=== PATIENT | female | born 1940 | race Caucasian/White ===

== ENCOUNTER 2016-12-25 16:25 | Emergency (ER) | payer MEDICARE ==
--- NOTE | 2016-12-25 19:30 | UC ---
Skin Complaint HPI - HPI Summary HPI Summary: A few weeks ago noticed a spot on chest between breasts. Didn't pay much attention to it, but today looked at it with magnifying mirror, glasses, and in good light, and then looked for pictures of melanoma online and is concerned about skin cancer. Denies recent illness, weight loss, cough, or loss of appetite. - History of Current Complaint Chief Complaint: UCSkin Time Seen by Provider: 12/25/16 18:52 Stated Complaint: SKIN LESION Hx Obtained From: Patient ?: No Onset/Duration: Gradual Onset, Lasting Weeks Timing: Constant Onset Severity: Mild Current Severity: Mild Character: Raised Aggravating: Nothing Alleviating: Nothing Associated Signs & Symptoms: Positive: Negative - Allergy/Home Medications Allergies/Adverse Reactions: Allergies Allergy/AdvReac Type Severity Reaction Status Date / Time No Known Allergies Allergy Verified 08/05/12 16:00 Home Medications: Home Medications Losartan Potassium 25 mg PO DAILY 12/25/16 [History Confirmed 12/25/16] Metoprolol Succinate XL TAB* [Toprol XL TAB*] 25 mg PO DAILY 12/25/16 [History Confirmed 12/25/16] Review of Systems Constitutional: Negative Skin: Other - spot on chest Eyes: Negative ENT: Negative Respiratory: Negative Cardiovascular: Negative Gastrointestinal: Negative Genitourinary: Negative Motor: Negative Neurovascular: Negative Musculoskeletal: Negative Neurological: Negative Psychological: Negative All Other Systems Reviewed And Are Negative: Yes PMH/Surg Hx/FS Hx/Imm Hx Endocrine History Of: Denies: Diabetes, Thyroid Disease Cardiovascular History Of: Reports: Cardiac Disorders - heart murmur, Hypertension Denies: Pacemaker/ICD Respiratory History Of: Denies: COPD, Asthma GI/ History Of: Denies: Gastroesophageal Reflux, Ulcer, Renal Disease Neurological History Of: Reports: CVA Denies: Dementia, Seizures Other History Of: Anticoagulant Therapy - Surgical History Surgical History: Yes Surgery Procedure, Year, and Place: meningioma removal 1984, tonsils - Family History Known Family History: Positive: Hypertension - Social History Occupation: Retired Lives: Alone Alcohol Use: None Substance Use Type: None Smoking Status (MU): Never Smoked Tobacco Physical Exam Triage Information Reviewed: Yes Appearance: Well-Appearing, Obese Vital Signs: Initial Vital Signs Temp 100.2 F 12/25/16 18:42 Pulse 78 12/25/16 18:42 Resp 18 12/25/16 18:42 BP 164/74 12/25/16 18:42 Pulse Ox 95 12/25/16 18:42 Vital Signs Reviewed: Yes Eye Exam: Normal Eyes: Positive: Conjunctiva Clear ENT Exam: Normal ENT: Positive: Normal ENT inspection, Hearing grossly normal, Pharynx normal, TMs normal Neck exam: Normal Neck: Positive: Supple, Nontender, No Lymphadenopathy Respiratory Exam: Normal Respiratory: Positive: Chest non-tender, Lungs clear, Normal breath sounds, No respiratory distress, No accessory muscle use Cardiovascular Exam: Normal Cardiovascular: Positive: RRR, No Murmur Musculoskeletal: Positive: ROM Intact, Edema @ - bilat legs, chronic, Other: - ambulates with walker Neurological Exam: Normal Neurological: Positive: Alert Psychological Exam: Normal Skin: Positive: rashes - flaky dry dermatitis on BL ankles and lower shins with secondary excoriations and scabs from picking, significant lesion(s) - 1.25cm x 1cm oval black/brown lesion on chest covered with reinoso/brown keratinous spikes Course/Dx - Diagnoses Provider Diagnoses: Sebhorric keratosis chest Discharge - Discharge Plan Condition: Stable Disposition: HOME Referrals: Cristina Randhawa MD [Primary Care Provider] - Additional Instructions: As we discussed, the spot on your chest is a sebhorric keratosis. This is a benign growth that usually happens in older adults and doesn't need any particular treatment unless it is painful or disfiguring. You can follow up with Dr. Randhawa if you have further concerns.
== END 2016-12-25 19:28 | disposition home or self-care (01) ==
LOC: UCEAST 16:25
DX: L82.1 Other seborrheic keratosis (principal); R01.1 Cardiac murmur, unspecified; I10 Essential (primary) hypertension; E66.9 Obesity, unspecified; Z86.73 Personal history of transient ischemic attack (TIA), and cerebral infarction without residual deficits; Z79.01 Long term (current) use of anticoagulants
CPT/HCPCS: 99201; G0463

== ENCOUNTER 2017-01-16 16:07 | Emergency (ER) | payer MEDICARE ==
[2017-01-16 16:37] VITALS: BP 157/78
[2017-01-16] MEDS ORDERED: Aspirin TAB* 325 MG PO ONE (16:43)
--- NOTE | 2017-01-16 17:40 | RAD ---
HISTORY: Pain and swelling, right knee COMPARISONS: None VIEWS: 4, Frontal, lateral, axial, and oblique views of the right knee FINDINGS: BONE DENSITY: There is diffuse osteopenia. BONES: There is no displaced fracture. JOINTS: There is no arthropathy. There is chondrocalcinosis ALIGNMENT: There is no dislocation. SOFT TISSUES: Unremarkable. OTHER FINDINGS: None. IMPRESSION: CHONDROCALCINOSIS. NO ACUTE OSSEOUS INJURY. IF SYMPTOMS PERSIST, RECOMMEND REPEAT IMAGING.
--- NOTE | 2017-01-28 16:50 | UC ---
Knee Pain HPI - HPI Summary HPI Summary: Right knee pain for a few days no known injury, got worse today - History of Current Complaint Hx Obtained From: Patient ?: No Onset/Duration: Gradual Onset, Lasting Days, Still Present, Worse Since - today Severity Initially: Moderate Severity Currently: Moderate Location Of Injury: right knee Pain Intensity: 7 Pain Scale Used: 0-10 Numeric Character: Aching, Throbbing, Stiffness Aggravating Factor(s): Movement, Weight Bearing Alleviating Factor(s): Rest, Position Associated Signs And Symptoms: Positive: Negative Able to Bear Weight: Yes <Jodi Olson - Last Filed: 01/28/17 16:44> <Apurva Owen - Last Filed: 01/29/17 07:45> - History of Current Complaint Chief Complaint: UCLowerExtremity Stated Complaint: KNEE PAIN Time Seen by Provider: 01/16/17 16:31 - Allergies/Home Medications Allergies/Adverse Reactions: Allergies Allergy/AdvReac Type Severity Reaction Status Date / Time No Known Allergies Allergy Verified 08/05/12 16:00 Home Medications: Home Medications Atenolol TAB* [Tenormin TAB* 50 MG] 50 mg PO DAILY 01/16/17 [History Confirmed 01/16/17] PMH/Surg Hx/FS Hx/Imm Hx Previously Healthy: Yes Cardiovascular History: Hypertension Other History Of: Anticoagulant Therapy - Surgical History Surgical History: Yes Surgery Procedure, Year, and Place: meningioma removal 1983, tonsils - Family History Known Family History: Positive: Hypertension - Social History Occupation: Retired Lives: With Family Alcohol Use: None Substance Use Type: None Smoking Status (MU): Never Smoked Tobacco <Jodi Olson - Last Filed: 01/28/17 16:44> Review of Systems Constitutional: Negative Skin: Negative Eyes: Negative ENT: Negative Respiratory: Negative Cardiovascular: Negative Gastrointestinal: Negative Genitourinary: Negative Motor: Negative Neurovascular: Negative Musculoskeletal: Arthralgia - right knee Neurological: Negative Psychological: Negative All Other Systems Reviewed And Are Negative: Yes <Jodi Olson - Last Filed: 01/28/17 16:44> Physical Exam Triage Information Reviewed: Yes Appearance: Well-Appearing, No Pain Distress, Well-Nourished Vital Signs: Initial Vital Signs Temp 97.3 F 01/16/17 16:31 Pulse 52 01/16/17 16:31 Resp 18 01/16/17 16:31 BP 157/78 01/16/17 16:31 Pulse Ox 97 01/16/17 16:31 Vital Signs Reviewed: Yes Eye Exam: Normal Eyes: Positive: Conjunctiva Clear ENT Exam: Normal ENT: Positive: Normal ENT inspection, Hearing grossly normal, TMs normal. Negative: Nasal congestion, Nasal drainage, Tonsillar swelling, Tonsillar exudate, Trismus, Muffled/hoarse voice Dental Exam: Normal Neck exam: Normal Neck: Positive: Supple, Nontender Respiratory Exam: Normal Respiratory: Positive: Chest non-tender, No respiratory distress, No accessory muscle use Cardiovascular Exam: Normal Cardiovascular: Positive: RRR, No Murmur, Pulses Normal, Brisk Capillary Refill Musculoskeletal Exam: Normal Musculoskeletal: Positive: Strength Intact, ROM Intact, No Edema Neurological Exam: Normal Neurological: Positive: Alert, Muscle Tone Normal Psychological Exam: Normal Skin Exam: Normal <Jodi Olson - Last Filed: 01/28/17 16:44> Vital Signs: Initial Vital Signs Temp 97.3 F 01/16/17 16:31 Pulse 52 01/16/17 16:31 Resp 18 01/16/17 16:31 BP 157/78 01/16/17 16:31 Pulse Ox 97 01/16/17 16:31 <Apurva Owen - Last Filed: 01/29/17 07:45> Diagnostics - Radiology No standard instances Xray Interpretation: Positive (See Comments) - chondrocalcinosis, osteopenia Radiology Interpretation Completed By: Radiologist <Jodi Olson - Last Filed: 01/28/17 16:44> Knee Pain Course/Dx - Course Course Of Treatment: anny wrap, gentle exercise, follow BP and Knee with pcp - Differential Dx/Diagnosis Differential Diagnosis/HQI/PQRI: Contusion, Fracture (Closed), Phlebitis, Sprain , Strain Provider Diagnoses: Right Knee arthritis, Hypertension in poor control <Jodi Olson - Last Filed: 01/28/17 16:44> Discharge <Jodi Olson - Last Filed: 01/28/17 16:44> <Apurva Owen - Last Filed: 01/29/17 07:45> - Discharge Plan Condition: Stable Disposition: HOME Patient Education Materials: Knee Pain (ED), Arthritis (ED) Referrals: Ralph Crabtree MD [Medical Doctor] - 3 Days Cristina Randhawa MD [Primary Care Provider] - Attestation Statement User Type: Provider - I was available for consult. This patient was seen by the advanced practice provider. The patient was not presented to, seen by, or examined by me.-Natalie <Apurva Owen - Last Filed: 01/29/17 07:45>
== END 2017-01-16 18:40 | disposition home or self-care (01) ==
LOC: UCEAST 16:07
DX: M17.11 Unilateral primary osteoarthritis, right knee (principal); I10 Essential (primary) hypertension; Z79.01 Long term (current) use of anticoagulants
CPT/HCPCS: 99212; G0463

== ENCOUNTER 2017-06-07 10:18 | Emergency (ER) | payer MEDICARE, MEDICAID ==
[2017-06-07 11:07] VITALS: BP 114/56
--- NOTE | 2017-06-07 11:40 | UC ---
Hand/Wrist HPI - HPI Summary HPI Summary: Patient presents with a paste medical history of carpel tunnel syndrome, and peripheral neuropathy. She states she has had worsening hand pain x one week. She states the pain is constant and worse at night. She states she is having trouble doing her basic activities of daily living. She denies any numbness or tingling at the time of the visit, but does at times have numbness of the the thumb, first and second fingers. She describes the pain as a severe burning sensation. - History Of Current Complaint Chief Complaint: UCUpperExtremity Stated Complaint: HAND PAIN Time Seen by Provider: 06/07/17 11:15 Hx Obtained From: Patient ?: No Onset/Duration: Other - months/years. Severity Initially: Mild Severity Currently: Severe Character Of Pain: Burning Aggravating Factor(s): Movement, Flexion, Extension Alleviating Factor(s): Nothing Associated Signs And Symptoms: Positive: Numbness/Tingling Related History: Similar Episode/Dx As - carpel tunnel syndrome - Risk Factors Compartment Syndrome Risk Factors: Pain, Paresthesias - Allergies/Home Medications Allergies/Adverse Reactions: Allergies Allergy/AdvReac Type Severity Reaction Status Date / Time No Known Allergies Allergy Verified 06/07/17 11:07 Home Medications: Home Medications Aspirin [Hegins Aspirin] 2 tab PO Q4H PRN 06/07/17 [History Confirmed 06/07/17] PMH/Surg Hx/FS Hx/Imm Hx Previously Healthy: Yes Other Cardiovascular History: lymphadema Other History Of: Anticoagulant Therapy - Surgical History Surgical History: Yes Surgery Procedure, Year, and Place: meningioma removal 1983, tonsils - Family History Known Family History: Positive: Hypertension - Social History Occupation: Retired Alcohol Use: None Substance Use Type: None Smoking Status (MU): Never Smoked Tobacco Review of Systems Constitutional: Negative Skin: Negative Eyes: Negative ENT: Negative Respiratory: Negative Cardiovascular: Negative Gastrointestinal: Negative Genitourinary: Negative Motor: Negative Neurovascular: Negative Musculoskeletal: Negative, Arthralgia - bilateral wrist and hands., Myalgia Neurological: Negative Psychological: Negative All Other Systems Reviewed And Are Negative: Yes Physical Exam Triage Information Reviewed: Yes Appearance: Well-Appearing Vital Signs: Initial Vital Signs Temp 97.6 F 06/07/17 10:59 Pulse 55 06/07/17 10:59 Resp 18 06/07/17 10:59 BP 114/56 06/07/17 10:59 Pulse Ox 96 06/07/17 10:59 Vital Signs Reviewed: Yes Eye Exam: Normal ENT Exam: Normal Dental Exam: Normal Neck exam: Normal Neck: Positive: 1 Respiratory Exam: Normal Cardiovascular Exam: Normal Abdominal Exam: Normal Musculoskeletal Exam: Normal Neurological Exam: Normal Psychological Exam: Normal Skin Exam: Normal Hand/Wrist Course/Dx - Course Course Of Treatment: Patient presents with a past medical history of reported carpel tunnel syndrome and reports increased pain, and at times numbness of the thum through middle fingers, at the time of the examination the patient has improved pain and no numbness. Her examination is benign. I did porvide cock up splints and recomend tylenol 325 mg by mouth three times daily. And I have referred her on to Dr. Liz for follow up. - Differential Dx/Diagnosis Differential Diagnosis/HQI/PQRI: Other - carpel tunnel syndrome Provider Diagnoses: carpel tunnel syndrome Discharge - Discharge Plan Condition: Stable Disposition: HOME Patient Education Materials: Wrist Injury (ED) Referrals: Cristina Randhawa MD [Primary Care Provider] - Bethanie Liz MD [Medical Doctor] - Additional Instructions: Patient diagnosis: carpel tunnel syndrome peripheral neuropathy Take Tylenol 325 mg by mouth three times daily for 3 days.
== END 2017-06-07 11:45 | disposition home or self-care (01) ==
LOC: UCEAST 10:18
DX: G56.00 Carpal tunnel syndrome, unspecified upper limb (principal)
CPT/HCPCS: 99213; G0463

== ENCOUNTER 2017-06-11 13:19 | Emergency (ER) | payer MEDICARE, MEDICAID ==
[2017-06-11 14:56] VITALS: BP 158/68
--- NOTE | 2017-06-20 17:10 | UC ---
Walter Gaffney Nikita, scribed for Leann Gunter DO on 06/11/17 at 1445 . Upper Extremity HPI - HPI Summary HPI Summary: This patient is a 77 year old F presenting to [facility] with a chief complaint of L hand pain since less than 3-4 weeks ago (couple of days after R arm pain started ). The CC is described as feeling electrified, tight, and aching. The patient rates the pain 10/10 in severity. Symptoms aggravated by bending fingers and any kind of movement. Symptoms alleviated by Aspirin, Tylenol, and bending over and leaning her L arm. Patient reports some tingling in fingers of R hand, pain from Carpel tunnel, swelling in L hand (started this afternoon at 1200), mild pain/ feeling in L arm, dizziness (light-headed, from turning of head suddenly ), slight ear ache (last night, pain coming from teeth). Patient denies N/V, abdominal pain, jaw pain, sore throat, CP, SOB, confusion, CARUSO, rashes. Pt reports pain in R shoulder and bicep pain started about 3-4 weeks ago (resolved 1 week after onset). - History of Current Complaint Chief Complaint: UCUpperExtremity Stated Complaint: HAND PAIN Hx Obtained From: Patient Onset/Duration: Sudden Onset, Lasting Weeks, Still Present Severity Initially: Severe Severity Currently: Severe Pain Intensity: 10 Pain Scale Used: 0-10 Numeric Location Of Pain: Is Discrete @ - L hand and L bicep Character: Aching - and pressure Aggravating Factor(s): Movement, Other - bending of fingers Alleviating Factor(s): OTC Meds - Aspirin and Tylenol Associated Signs And Symptoms: Positive: Other - Patient reports some tingling in fingers of R hand, pain from Carpel tunnel, swelling in L hand (started this afternoon at 1200), mild pain/ feeling in L arm, dizziness (light-headed, from turning of head suddenly), slight ear ache (last night, pain coming from teeth). Patient denies N/V, abdominal pain, jaw pain, sore throat, CP, SOB, confusion, CARUSO, rashes. Pt reports pain in R shoulder and bicep pain started about 3-4 weeks ago (resolved 1 week after onset). - Allergies/Home Medications Allergies/Adverse Reactions: Allergies Allergy/AdvReac Type Severity Reaction Status Date / Time No Known Allergies Allergy Verified 06/11/17 13:25 Home Medications: Home Medications Aspirin [Aspirin 81 MG TAB] 81 mg PO 06/11/17 [History] PMH/Surg Hx/FS Hx/Imm Hx - Additional Past Medical History Additional PMH: Carpel Tunnel Syndrome since age 30-40s. Endocrine History: Other Other Endocrine History: Lymphedema, L ventricular hypertrophy, leakage in mitral valve Cardiovascular History: Hypertension Other Cardiovascular History: Heart murmur Other History Of: Anticoagulant Therapy - Surgical History Surgical History: Yes Surgery Procedure, Year, and Place: meningioma removal 1983, tonsils - Family History Known Family History: Positive: Hypertension, Diabetes Family History: heart murmur - Social History Alcohol Use: None Substance Use Type: None Smoking Status (MU): Never Smoked Tobacco - Immunization History Most Recent Influenza Vaccination: declines every year Most Recent Pneumonia Vaccination: unsure Review of Systems Skin: Negative ENT: Ear Ache - slight ear ache (last night, pain coming from teeth), Other - denies jaw pain, sore throat Respiratory: Negative Cardiovascular: Negative Gastrointestinal: Other - denies N/V, abdominal pain Musculoskeletal: Other: - some tingling in fingers of R hand, pain from Carpel tunnel, swelling in L hand (started this afternoon at 1200), mild pain/ feeling in L arm; pain in R shoulder and bicep pain started about 3-4 weeks ago ( resolved 1 week after onset) Neurological: Other - dizziness (light-headed, from turning of head suddenly); denies confusion, CARUSO All Other Systems Reviewed And Are Negative: Yes Physical Exam Triage Information Reviewed: Yes Appearance: Well-Appearing, Well-Nourished, Pain Distress - mild Vital Signs: Initial Vital Signs Temp 98.4 F 06/11/17 13:29 Pulse 61 06/11/17 13:29 Resp 16 06/11/17 13:29 BP 173/61 06/11/17 13:29 Pulse Ox 97 06/11/17 13:29 Vital Signs Reviewed: Yes Eyes: Positive: Conjunctiva Clear. Negative: Discharge ENT: Positive: Hearing grossly normal, Other: - normal voice. Negative: Muffled /hoarse voice Neck exam: Normal Neck: Positive: Supple Respiratory: Positive: Lungs clear, Normal breath sounds, No respiratory distress, No accessory muscle use Cardiovascular: Positive: RRR, Other: - holosystolic murmur Musculoskeletal Exam: Other - Very poor kyphotic posture, mild to moderate swelling of L hand, shocking pain with gripping on R, motor appears to be intact , pt cant make a tight fist due to pain of L hand, no pain with ROM of L shoulder and elbow, no pain with squeezing of L brachium or forearm Neurological: Positive: Alert, Muscle Tone Normal Psychological Exam: Normal Psychological: Positive: Age Appropriate Behavior Skin Exam: Other - Warm, Dry, Normal color Skin: Positive: significant lesion(s) - scaly skin lesion on L arm Diagnostics - EKG Cardiac Rate: Bradycardia - 54 bpm; taken at 1534; L ventricular hypertrophy and no ST changes Re-Evaluation - Re-Evaluation First Eval Re-Evaluation Time: 16:03 Comment: Discussed with pt about discharge plan. Upper Extremity Course/Dx - Course Course Of Treatment: This patient is a 77 year old F presenting to [facility] with a chief complaint of L hand pain since less than 3-4 weeks ago (couple of days after R arm pain started). The CC is described as feeling electrified, tight, and aching. The patient rates the pain 10/10 in severity. Symptoms aggravated by bending fingers and any kind of movement. Symptoms alleviated by Aspirin, Tylenol, and bending over and leaning her L arm. Patient reports some tingling in fingers of R hand, pain from Carpel tunnel, swelling in L hand (started this afternoon at 1200), mild pain/ feeling in L arm, dizziness (light-headed, from turning of head suddenly), slight ear ache (last night, pain coming from teeth). Patient denies N/V, abdominal pain, jaw pain, sore throat, CP, SOB, confusion, CARUSO, rashes. Pt reports pain in R shoulder and bicep pain started about 3-4 weeks ago (resolved 1 week after onset). EKG reveals sinus bradycardia at 54 bpm, L ventricular hypertrophy, and no ST changes. Consulted Dr. Durand at 1600 about pt's EKG and plan of action. Medications reviewed this visit. High blood pressure noted. Pt will be discharged. Pt is agreeable with this plan. - Differential Dx/Diagnosis Provider Diagnoses: Elevated blood pressure without diagnosis of hypertension. Peripheral neuropathy. - Physician Notification/Consults Discussed Patient Care With: Satish Durand Time Discussed With Above Provider: 16:00 Instructed by Provider To: Other - Consulted Dr. Durand about pt's EKG and plan of action. Discharge - Discharge Plan Condition: Stable Disposition: HOME Patient Education Materials: Peripheral Neuropathy (ED) Referrals: Cristina Randhawa MD [Primary Care Provider] - 3 Days Additional Instructions: YOU WOULD LIKELY BENEFIT FROM OSTEOPATHIC MANIPULATION. WE RECOMMEND THAT YOU FIND AN OSTEOPATHIC PHYSICIAN IN YOUR AREA WHO DOES LYMPHATIC, MYOFACIAL AND VISCERAL WORK. Your blood pressure was elevated at this visit. That does not mean you have hypertension, it is probably due to your current condition. Please follow up with your primary care provider. Pt is advised to show PCP the lesion on L brachium. You have inquired about possible medications that would be appropriate to control pain. We recommend that you consider turmeric, CPD oil, and a combination of arnica and St Pollard wort. However, it is important that you discuss this with your primary and your credit and collections representative, and get their approval first. Because left arm pain is a symptom of heart problems, we did an EKG and showed it to your credit and collections representative. We had a discussion with your credit and collections representative, and he said that unless you developed much increase pain in left arm or if you develop more typical symptoms of a heart attack, such as CP, SOB, dizziness, nausea, vomiting, abdominal pain, and left jaw pain, you should go to the ER immediately. The documentation as recorded by the Walter haider Nikita accurately reflects the service I personally performed and the decisions made by me, Leann Gunter DO.
== END 2017-06-11 16:46 | disposition home or self-care (01) ==
LOC: UCEAST 13:19
DX: G62.9 Polyneuropathy, unspecified (principal); I10 Essential (primary) hypertension; I51.7 Cardiomegaly; Z79.01 Long term (current) use of anticoagulants; I89.0 Lymphedema, not elsewhere classified; R01.1 Cardiac murmur, unspecified; R00.1 Bradycardia, unspecified
CPT/HCPCS: 93005; 99211; G0463

== ENCOUNTER 2017-06-25 09:09 | Day surgery (SDC) | payer MEDICARE, MEDICAID ==
--- NOTE | 2017-06-15 13:30 | HP ---
PREOPERATIVE HISTORY AND PHYSICAL: DATE OF ADMISSION/SURGERY: 06/25/17 [facility] DATE OF OFFICE VISIT/ENCOUNTER: 06/10/17 ATTENDING SURGEON: Bethanie Liz MD * (DICTATED BY ALIN AVILA) PROCEDURE: Right wrist carpal tunnel release. PRACTICE MANAGEMENT CONSULTANT: Dr. Satish Durnad. CHIEF COMPLAINT: Numbness and tingling, bilateral hands, right worse than left. HISTORY OF PRESENT ILLNESS: This is a 77-year-old female who complains of numbness and tingling in her bilateral hands, right is slightly worse than the left. She has had symptoms for many, many years. She occasionally takes aspirin , which is helpful, but does not alleviate the symptoms and nearly everything at this point is bothersome. She is very limited in her abilities because of this problem; she is right handed. She has numbness in all fingers except the pinkies. There was no injury that she recalls. After physical examination by Dr. Liz, she was diagnosed with bilateral carpal tunnel syndrome. The patient has consented to proceed with a right wrist carpal tunnel release at this time, after which she will likely have a left wrist carpal tunnel release. The patient does have some cardiac issues including left ventricular hypertrophy and mitral valve regurgitation. We will get clearance prior to surgery from her woods laborer, Dr. Satish Durand. PAST MEDICAL HISTORY: 1. Left ventricular hypertrophy. 2. Mitral valve regurgitation. 3. Hypertension. 4. Lymphedema. PAST SURGICAL HISTORY: 1. Tonsillectomy. 2. Excision of a meningioma from the right frontal lobe in 1983, left the patient with left-sided weakness. 3. D and C. CURRENT MEDICATIONS: 1. Atenolol 50 mg daily. 2. Losartan potassium 50 mg daily. 3. Multivitamin daily. 4. Sibley oil. 5. Other vitamins. ALLERGIES: No known drug allergies. FAMILY MEDICAL HISTORY: Noncontributory. SOCIAL HISTORY: The patient lives at home alone. She denies tobacco use and recreational drug use. She does drink alcohol on rare occasion. REVIEW OF SYSTEMS: General: Negative for fevers, chills, or night sweats. No known anesthesia problems in the past. HEENT: Negative for headache, lightheadedness, or syncopal episodes. Integumentary: Negative for abrasions, lesions, or open wounds. Cardiothoracic: Positive for hypertension and lymphedema. Negative for chest pain. Pulmonary: Negative for shortness of breath with exertion, chronic cough, COPD. GI: Negative for nausea, vomiting, diarrhea, constipation, or GERD. : Negative for nocturia, urinary frequency , urgency, history of UTIs, or kidney problems. Musculoskeletal: Positive for current complaint. Negative for chronic or intermittent back pain or history of fractures. Neurologic: Positive for paresthesias, bilateral hands. Negative for history of seizure, stroke, or epilepsy. Endocrine: Negative for diabetes or thyroid issues. Hematologic: Negative for easy bruising, anemia, excessive bleeding, or history of DVT. Infectious Disease: Negative for history of MRSA, hepatitis C, or HIV. PHYSICAL EXAMINATION GENERAL: A well-developed, well-nourished, 77-year-old female in no acute distress. VITAL SIGNS: Height 5 feet tall, weight 160 pounds, pulse rate 70, blood pressure 138/68. HEENT: Normocephalic, atraumatic. Pupils are equal, round, and reactive to light and accommodation. Extraocular movements are intact. Throat is clear. NECK: Supple. No palpable lymph nodes. PULMONARY: Lungs are clear to auscultation bilaterally. No wheezes, rales, or rhonchi. CARDIOVASCULAR: Regular rate and rhythm. S1, S2. Murmur detected with auscultation. Mitral valve regurg. ABDOMEN: Positive bowel sounds, soft, nontender. NEUROLOGICAL: Alert and oriented x3. Cranial nerves II through XII are intact. MUSCULOSKELETAL: On exam of bilateral hands, she has significant thenar wasting. She has marked weakness with thumb abduction bilaterally. She has good range of motion of her fingers into a fist and good extension of the fingers. Wrist motion is slightly decreased. Sensation is decreased in the median nerve distribution bilaterally. She has a positive Tinel's at bilateral wrists. IMPRESSION: Bilateral carpal tunnel syndrome. PLAN: The patient is scheduled to undergo a right wrist carpal tunnel release with Dr. Liz on 06/25/17. She will return to the office 10 to 14 days postop for followup and suture removal. A prescription for tramadol was e-scribed to the patient's pharmacy for postoperative pain management. She will receive clearance for surgery by her woods laborer, Dr. Satish Durand. ALIN AVILA [id number]/[facility] #: [id number] [place]
[~2017-06-25 09:09] MED LIST: Buffered Lidocaine 0.9% SYRIN* 5 ML/SYR SYRINGE INTRADERM ONE
[2017-06-25] MEDS ORDERED: Lidocaine 1% INJ* 10 MG/ML 30 ML SDV ONE (09:31)
[2017-06-25] MEDS ORDERED: fentaNYL* 50 MCG/ML 2 ML VIAL (100 MCG VIAL) ONE (10:15)
[2017-06-25] MEDS ORDERED: Propofol* 10 MG/ML 20 ML BTL IV PUSH ONE (10:28)
[2017-06-25] MEDS ORDERED: Lidocaine 2% PF * 5 ML VIAL ONE (10:28)
[2017-06-25 11:36] VITALS: BP 175/65
--- NOTE | 2017-06-26 00:17 | OP ---
DATE OF OPERATION: 06/25/17 [facility] DATE OF : 38 SURGEON: Bethanie Liz MD PELT DROPPER: ALIN Leiva and ALIN Copeland ANESTHESIOLOGIST: Demarcus Uribe DO ANESTHESIA: MAC PRE-OP DIAGNOSIS: Right carpal tunnel syndrome. POST-OP DIAGNOSIS: Right carpal tunnel syndrome. OPERATIVE PROCEDURE: Right carpal tunnel release. ESTIMATED BLOOD LOSS: Zero. TOURNIQUET TIME: 5 minutes. INDICATION FOR PROCEDURE: Tania is a 77-year-old female with numbness and tingling in the median nerve distribution of her right hand. She presents for a right carpal tunnel release. DESCRIPTION OF PROCEDURE: The patient was given sedation anesthetic and a local infiltration of 10 cc of 1% plain lidocaine in the palm of her right hand. The skin of her right hand and forearm was prepped and draped in the usual sterile fashion. The hand and forearm were exsanguinated and the tourniquet elevated to 250 mmHg. A longitudinal incision was made in the palm in line with the ring finger. We dissected through the subcutaneous tissue down to the transverse carpal ligament. The ligament was divided sharply with the knife and then more proximally with the scissors. The nerve was dissected free from the surrounding tissue and there was an area of severe compression at the mid portion of the ligament. The wound was irrigated and the skin edges were reapproximated with 4-0 nylon suture. The wound was dressed with Xeroform, 4x4, Webril, and an Darrel wrap. The patient tolerated the procedure well and was brought to the recovery room in good condition. [id number]/[facility] #: [id number] MTDD
== END 2017-06-25 11:55 | disposition home or self-care (01) ==
LOC: OREAST 09:09
PROVIDERS: ATTEND Orthopaedic Surgery
DX: G56.03 Carpal tunnel syndrome, bilateral upper limbs (principal); I11.9 Hypertensive heart disease without heart failure; I34.0 Nonrheumatic mitral (valve) insufficiency
CPT/HCPCS: J2001; J2704; J3010

== ENCOUNTER 2017-06-27 15:56 | Inpatient (IN) | payer MEDICARE, MEDICAID ==
[2017-06-27] MEDS ORDERED: NS 0.9% 1000 ML* 1,000 ML IV SCH ×2 (19:15→20:30)
[2017-06-27 19:35] LABS: Hematocrit 33 % (35-47); Mean Corpuscular HGB Conc 34 g/dl (31-36); Mean Corpuscular Hemoglobin 28 pg (27-31); Mean Corpuscular Volume 82 fL (80-97); Mean Platelet Volume 6 um3 (7.4-10.4); Red Blood Count 3.99 10^6/ul (4.0-5.4); Red Cell Distribution Width 14 % (10.5-15); White Blood Count 10.8 10^3/ul (3.5-10.8)
--- NOTE | 2017-06-27 19:52 | RAD ---
HISTORY: Fever COMPARISONS: August 25, 2005 VIEWS: 1: frontal portable view of the chest at 7:20 PM. The patient is slightly obliqued to the left. FINDINGS: LINES AND TUBES: None. CARDIOMEDIASTINAL SILHOUETTE: The cardiomediastinal silhouette is normal for portable technique. PLEURA: There is blunting of the right costophrenic angle. LUNG PARENCHYMA: There is hyperinflation. ABDOMEN: The upper abdomen is clear. There is no subphrenic gas. BONES AND SOFT TISSUES: No bone or soft tissue abnormalities are noted. IMPRESSION: 1. COPD. 2. SMALL RIGHT PLEURAL EFFUSION VERSUS CHRONIC PLEURAL THICKENING
[2017-06-27 19:56] LABS: Albumin 3.7 g/dL (3.2-5.2); BUN/Creatinine Ratio 28.1 (8-20); C Reactive Protein 127.62 mg/L (< 5.00); Calcium 9.6 mg/dL (8.6-10.3); EGFR African American 115.4 (>60); EGFR Non-African American 89.7 (>60); Globulin 3.6 g/dL (2-4); Magnesium 1.8 mg/dL (1.9-2.7); Potassium 4.1 mmol/L (3.5-5.0); Total Bilirubin 0.7 mg/dL (0.2-1.0); Total Protein 7.3 g/dL (6.4-8.9)
[2017-06-27 19:59] LABS: Troponin I 0.04 ng/mL (<0.04)
[2017-06-27 20:16] LABS: Urine Bacteria 1+ (Absent); Urine Bilirubin Negative (Negative); Urine Glucose Negative (Negative); Urine Nitrite Positive (Negative)
[2017-06-27 20:20] LABS: TSH (Thyroid Stimulating Horm) 0.91 mcIU/mL (0.34-5.60)
[2017-06-27] MEDS ORDERED: Magnesium Sulfate 2 GM IV* 2 GM/50 ML BAG IVPB ONE (20:49)
--- NOTE | 2017-06-27 21:06 | ED ---
Li Gaffney SooYoung, scribed for Chapo Srivastava MD on 06/27/17 at 1831 . Complex/Multi-Sys Presentation - HPI Summary HPI Summary: A 77 y/o F presents to ED s/p carpal tunnel surgery on R hand two days ago. Pt states she was staying with family (daughter and son-in-law) since the surgery, but they are unable to see continue caring for her today. She states she is unable to take care of herself at home. She ambulates with a walker, but was told by her provider not to use the walker immediately after the surgery. Pert PMHx: peripheral neuropathy; carpal tunnel syndrome. Pt is registered with [facility] who she contacted but she did not receive a return phone call, nor has she been in contact with a home health aide. - History Of Current Complaint Chief Complaint: EDExtremityUpper Time Seen by Provider: 06/27/17 18:19 Hx Obtained From: Patient Onset/Duration: Still Present Timing: Constant Associated Signs And Symptoms: Positive: Fever, Other - s/p carpal tunnel surgery of R hand - Allergies/Home Medications Allergies/Adverse Reactions: Allergies Allergy/AdvReac Type Severity Reaction Status Date / Time Lanolin Allergy Rash Verified 06/25/17 09:51 Latex Allergy Rash Verified 06/25/17 09:51 PMH/Surg Hx/FS Hx/Imm Hx Previously Healthy: No Endocrine/Hematology History: Reports: Hx Anticoagulant Therapy Denies: Hx Diabetes, Hx Thyroid Disease Cardiovascular History: Reports: Hx Hypertension, Hx Valvular Heart Disease - mitral valve regurg, Other Cardiovascular Problems/Disorders - left ventricular hypertrophy Denies: Hx Pacemaker/ICD Respiratory History: Denies: Hx Asthma, Hx Chronic Obstructive Pulmonary Disease (COPD), Other Respiratory Problems/Disorders GI History: Denies: Hx Ulcer, Other GI Disorders History: Reports: Hx Kidney Stones - several years ago Denies: Hx Renal Disease, Other Problems/Disorders Musculoskeletal History: Reports: Hx Arthritis - right knee, Hx Tendonitis - arm and shoulder Denies: Other Musculoskeletal History Sensory History: Reports: Hx Contacts or Glasses - glasses Denies: Hx Hearing Aid Opthamlomology History: Reports: Hx Contacts or Glasses - glasses Neurological History: Reports: Hx Nerve Disease - peripheral neuropathy Denies: Hx Dementia, Hx Seizures, Other Neuro Impairments/Disorders Psychiatric History: Reports: Hx Anxiety - hypochondriac, worrier Denies: Hx Substance Abuse - Surgical History Surgery Procedure, Year, and Place: meningioma removal 1983, tonsils Hx Anesthesia Reactions: No Infectious Disease History: No Infectious Disease History: Denies: Hx Clostridium Difficile, Hx Hepatitis, Hx Human Immunodeficiency Virus (HIV), Hx of Known/Suspected MRSA, Hx Shingles, Hx Tuberculosis, Hx Known/ Suspected VRE, Hx Known/Suspected VRSA, History Other Infectious Disease, Traveled Outside the [place] in Last 30 Days - Family History Known Family History: Positive: Hypertension, Diabetes Family History: heart murmur - Social History Occupation: Retired Lives: Alone Alcohol Use: None Hx Substance Use: No Substance Use Type: Reports: None Hx Tobacco Use: No Smoking Status (MU): Never Smoked Tobacco Review of Systems Positive: Fever Positive: Other - pos: R hand s/p carpal tunnel surgery Negative: Slurred Speech All Other Systems Reviewed And Are Negative: Yes Physical Exam Triage Information Reviewed: Yes Vital Signs On Initial Exam: Initial Vitals Temp Pulse Resp BP Pulse Ox 100.1 F 72 15 174/61 95 06/27/17 16:00 06/27/17 16:00 06/27/17 16:00 06/27/17 16:00 06/27/17 16:00 Vital Signs Reviewed: Yes Appearance: Positive: Well-Appearing, No Pain Distress Skin: Positive: Warm, Skin Color Reflects Adequate Perfusion, Dry Head/Face: Positive: Normal Head/Face Inspection Eyes: Positive: EOMI, FRANSICO ENT: Positive: Normal ENT inspection Neck: Positive: Supple, Nontender Respiratory/Lung Sounds: Positive: Clear to Auscultation, Breath Sounds Present Cardiovascular: Positive: RRR, Murmur Abdomen Description: Positive: Nontender, Soft Bowel Sounds: Positive: Present Musculoskeletal: Positive: Normal, Strength/ROM Intact, Other - R hand is bandaged; good capillary refill through fingers Neurological: Positive: Normal, Sensory/Motor Intact, Alert, Oriented to Person Place, Time Psychiatric: Positive: Affect/Mood Appropriate Diagnostics - Vital Signs Vital Signs Temp Pulse Resp BP Pulse Ox 06/27/17 17:46 100.1 F 67 15 190/76 96 06/27/17 16:00 100.1 F 72 15 174/61 95 - Laboratory Lab Results: Lab Results 06/27/17 06/27/1706/27/17 Range/Units 19:15 19:15 19:15 WBC (3.5-10.8) 10^3/ul RBC (4.0-5.4) 10^6/ul Hgb (12.0-16.0) g/dl Hct (35-47) % MCV (80-97) fL MCH (27-31) pg MCHC (31-36) g/dl RDW (10.5-15) % Plt Count (150-450) 10^3/ul MPV (7.4-10.4) um3 Neut % (Auto) (38-83) % Lymph % (Auto) (25-47) % Morrow % (Auto) (1-9) % Eos % (Auto) (0-6) % Baso % (Auto) (0-2) % Absolute Neuts (auto) (1.5-7.7) 10^3/ul Absolute Lymphs (auto) (1.0-4.8) 10^3/ul Absolute Monos (auto) (0-0.8) 10^3/ul Absolute Eos (auto) (0-0.6) 10^3/ul Absolute Basos (auto) (0-0.2) 10^3/ul Absolute Nucleated RBC 10^3/ul Nucleated RBC % INR (Anticoag Therapy) 1.14 H (0.89-1.11) APTT 21.3 L (26.0-36.3) seconds Sodium 135 (133-145) mmol/L Potassium 4.1 (3.5-5.0) mmol/L Chloride 101 (101-111) mmol/L Carbon Dioxide 26 (22-32) mmol/L Anion Gap 8 (2-11) mmol/L BUN 18 (6-24) mg/dL Creatinine 0.64 (0.51-0.95) mg/dL Est GFR ( Amer) 115.4 (>60) Est GFR (Non-Af Amer) 89.7 (>60) BUN/Creatinine Ratio 28.1 H (8-20) Glucose 110 H (70-100) mg/dL Lactic Acid (0.5-2.0) mmol/L Calcium 9.6 (8.6-10.3) mg/dL Magnesium 1.8 L (1.9-2.7) mg/dL Total Bilirubin 0.70 (0.2-1.0) mg/dL AST 11 L (13-39) U/L ALT 10 (7-52) U/L Alkaline Phosphatase 84 (34-104) U/L Troponin I 0.04 H* (<0.04) ng/mL C-Reactive Protein 127.62 H (< 5.00) mg/L B-Natriuretic Peptide 352 H ( - 100) pg/mL Total Protein 7.3 (6.4-8.9) g/dL Albumin 3.7 (3.2-5.2) g/dL Globulin 3.6 (2-4) g/dL Albumin/Globulin Ratio 1.0 (1-3) TSH 0.91 (0.34-5.60) mcIU/mL Urine Color Urine Appearance Urine pH (5-9) Ur Specific [place] (1.010-1.030) Urine Protein (Negative) Urine Ketones (Negative) Urine Blood (Negative) Urine Nitrate (Negative) Urine Bilirubin (Negative) Urine Urobilinogen (Negative) Ur Leukocyte Esterase (Negative) Urine WBC (Auto) (Absent) Urine RBC (Auto) (Absent) Ur Squamous Epith Cells (Absent) Urine Bacteria (Absent) Urine Glucose (Negative) Influenza A (Rapid) (Negative) Influenza B (Rapid) (Negative) 06/27/17 06/27/17 06/27/17 Range/Units 19:15 19:15 19:36 WBC 10.8 (3.5-10.8) 10^3/ul RBC 3.99 L (4.0-5.4) 10^6/ul Hgb 11.0 L (12.0-16.0) g/dl Hct 33 L (35-47) % MCV 82 (80-97) fL MCH 28 (27-31) pg MCHC 34 (31-36) g/dl RDW 14 (10.5-15) % Plt Count 427 (150-450) 10^3/ul MPV 6 L (7.4-10.4) um3 Neut % (Auto) 78.6 (38-83) % Lymph % (Auto) 12.0 L (25-47) % Morrow % (Auto) 7.4 (1-9) % Eos % (Auto) 1.5 (0-6) % Baso % (Auto) 0.5 (0-2) % Absolute Neuts (auto) 8.5 H (1.5-7.7) 10^3/ul Absolute Lymphs (auto) 1.3 (1.0-4.8) 10^3/ul Absolute Monos (auto) 0.8 (0-0.8) 10^3/ul Absolute Eos (auto) 0.2 (0-0.6) 10^3/ul Absolute Basos (auto) 0 (0-0.2) 10^3/ul Absolute Nucleated RBC 0.02 10^3/ul Nucleated RBC % 0.1 INR (Anticoag Therapy) (0.89-1.11) APTT (26.0-36.3) seconds Sodium (133-145) mmol/L Potassium (3.5-5.0) mmol/L Chloride (101-111) mmol/L Carbon Dioxide (22-32) mmol/L Anion Gap (2-11) mmol/L BUN (6-24) mg/dL Creatinine (0.51-0.95) mg/dL Est GFR ( Amer) (>60) Est GFR (Non-Af Amer) (>60) BUN/Creatinine Ratio (8-20) Glucose (70-100) mg/dL Lactic Acid 0.7 (0.5-2.0) mmol/L Calcium (8.6-10.3) mg/dL Magnesium (1.9-2.7) mg/dL Total Bilirubin (0.2-1.0) mg/dL AST (13-39) U/L ALT (7-52) U/L Alkaline Phosphatase (34-104) U/L Troponin I (<0.04) ng/mL C-Reactive Protein (< 5.00) mg/L B-Natriuretic Peptide ( - 100) pg/mL Total Protein (6.4-8.9) g/dL Albumin (3.2-5.2) g/dL Globulin (2-4) g/dL Albumin/Globulin Ratio (1-3) TSH (0.34-5.60) mcIU/mL Urine Color Urine Appearance Urine pH (5-9) Ur Specific [place] (1.010-1.030) Urine Protein (Negative) Urine Ketones (Negative) Urine Blood (Negative) Urine Nitrate (Negative) Urine Bilirubin (Negative) Urine Urobilinogen (Negative) Ur Leukocyte Esterase (Negative) Urine WBC (Auto) (Absent) Urine RBC (Auto) (Absent) Ur Squamous Epith Cells (Absent) Urine Bacteria (Absent) Urine Glucose (Negative) Influenza A (Rapid) Negative (Negative) Influenza B (Rapid) Negative (Negative) 06/27/17 Range/Units 20:00 WBC (3.5-10.8) 10^3/ul RBC (4.0-5.4) 10^6/ul Hgb (12.0-16.0) g/dl Hct (35-47) % MCV (80-97) fL MCH (27-31) pg MCHC (31-36) g/dl RDW (10.5-15) % Plt Count (150-450) 10^3/ul MPV (7.4-10.4) um3 Neut % (Auto) (38-83) % Lymph % (Auto) (25-47) % [place] % (Auto) (1-9) % Eos % (Auto) (0-6) % Baso % (Auto) (0-2) % Absolute Neuts (auto) (1.5-7.7) 10^3/ul Absolute Lymphs (auto) (1.0-4.8) 10^3/ul Absolute Monos (auto) (0-0.8) 10^3/ul Absolute Eos (auto) (0-0.6) 10^3/ul Absolute Basos (auto) (0-0.2) 10^3/ul Absolute Nucleated RBC 10^3/ul Nucleated RBC % INR (Anticoag Therapy) (0.89-1.11) APTT (26.0-36.3) seconds Sodium (133-145) mmol/L Potassium (3.5-5.0) mmol/L Chloride (101-111) mmol/L Carbon Dioxide (22-32) mmol/L Anion Gap (2-11) mmol/L BUN (6-24) mg/dL Creatinine (0.51-0.95) mg/dL Est GFR ( Amer) (>60) Est GFR (Non-Af Amer) (>60) BUN/Creatinine Ratio (8-20) Glucose (70-100) mg/dL Lactic Acid (0.5-2.0) mmol/L Calcium (8.6-10.3) mg/dL Magnesium (1.9-2.7) mg/dL Total Bilirubin (0.2-1.0) mg/dL AST (13-39) U/L ALT (7-52) U/L Alkaline Phosphatase (34-104) U/L Troponin I (<0.04) ng/mL C-Reactive Protein (< 5.00) mg/L B-Natriuretic Peptide ( - 100) pg/mL Total Protein (6.4-8.9) g/dL Albumin (3.2-5.2) g/dL Globulin (2-4) g/dL Albumin/Globulin Ratio (1-3) TSH (0.34-5.60) mcIU/mL Urine Color Yellow Urine Appearance Cloudy Urine pH 7.0 (5-9) Ur Specific [place] 1.019 (1.010-1.030) Urine Protein 1+(30 mg/dl) H (Negative) Urine Ketones Trace H (Negative) Urine Blood Negative (Negative) Urine Nitrate Positive H (Negative) Urine Bilirubin Negative (Negative) Urine Urobilinogen Positive H (Negative) Ur Leukocyte Esterase 3+ H (Negative) Urine WBC (Auto) 3+(>20/hpf) H (Absent) Urine RBC (Auto) 2+(6-10/hpf) H (Absent) Ur Squamous Epith Cells Present H (Absent) Urine Bacteria 1+ H (Absent) Urine Glucose Negative (Negative) Influenza A (Rapid) (Negative) Influenza B (Rapid) (Negative) Result Diagrams: 06/27/17 19:15 06/27/17 19:15 Lab Statement: Any lab studies that have been ordered have been reviewed, and results considered in the medical decision making process. - EKG 1 Cardiac Rate: NL - 71 bpm EKG Rhythm: Sinus Rhythm ST Segment: Non-Specific Ectopy: None EKG Interpretation: LVH Complex Multi-Symp Course/Dx Course Of Treatment: A 77 y/o F presents to ED s/p carpal tunnel surgery on R hand two days ago. Pt states she was staying with family (daughter and son-in- law) since the surgery, but they are unable to see continue caring for her today. She states she is unable to take care of herself at home. She ambulates with a walker, but was told by her provider not to use the walker immediately after the surgery. Pert PMHx: peripheral neuropathy; carpal tunnel syndrome. Pt is registered with [facility] who she contacted but she did not receive a return phone call, nor has she been in contact with a home health aide. Consulted with hospitalist who will admit pt. - Diagnoses Provider Diagnoses: UTI (urinary tract infection), Elevated troponin - Physician Notifications Discussed Care Of Patient With: Roge Owne - hospitalist Time Discussed With Above Provider: 18:25 Instructed by Provider To: Admit As Inpatient Discharge - Discharge Plan Condition: Stable Disposition: [facility]MITTED TO [facility] The documentation as recorded by the Li haider SooYoung accurately reflects the service I personally performed and the decisions made by me, Chapo Srivastava MD.
[2017-06-27] MEDS ORDERED: hydrALAZINE IV* 20 MG/ML VIAL IV PRN (22:47)
[2017-06-27] MEDS: Heparin VIAL(*) 5000 UNITS/ML VIAL (FIVE THOUSAND) SUBCUT SCH (22:57)
[2017-06-27] MEDS: cefTRIAXone VIAL(*) 1,000 MG in NS 0.9% 50 ML* 50 ML IVPB SCH (22:57)
[2017-06-28] MEDS ORDERED: ALPRAZolam TAB* 0.25 MG PO ONE (01:03)
--- NOTE | 2017-06-28 01:51 | HP ---
CC: Cristina Randhawa MD * HISTORY AND PHYSICAL: DATE OF ADMISSION: 06/27/17 PRIMARY CARE PROVIDER: Cristina Randhawa MD ATTENDING PHYSICIAN: Javy Escobar MD * (dictated by Kath Mc NP) CHIEF COMPLAINT: Unable to ambulate after right carpal tunnel release. HISTORY OF PRESENT ILLNESS: Ms. Turner is a 77-year-old with past medical history significant for left ventricular hypertrophy, mitral valve regurgitation , hypertension, chronic bilateral lower extremity lymphedema and left-sided weakness status post a right frontal meningioma excision, who had been in her usual state of health and underwent an elective right carpal tunnel release with Dr. Bethanie Liz on 06/25/17. The patient states that she has been doing well postoperatively and her pain has been controlled with aspirin and Tylenol. The patient denied any fever, chills, shortness of breath, chest pain , nausea, vomiting. The patient reports occasional cough due to postnasal drip. She denies any urinary symptoms such as dysuria, urgency, or frequency changes. She reports minimal discomfort to her right wrist. It is to be also noted that the patient reports recently developing a right shoulder discomfort, it then progressed to her left shoulder and into her left biceps over the last few weeks. She feels this has been due to using a walker that was not the appropriate level. The patient states that she had increased her aspirin from 81 mg daily to 325 mg daily to assist with her pain management. The patient's family had been assisting to take care of her and due to the patient not progressing as fast as they expected her to, they were unable to continue to care for her at home as they needed to return to work on Wednesday, so they brought her to the emergency room for further evaluation of her symptoms. While in the emergency room, initially the patient was going to be admitted as a prison patient. Then she was found to be febrile with a temperature of 101.0. After the patient was febrile, she then had labs drawn. She had no leukocytosis. She was noted to have a magnesium of 1.8, troponin of 0.04, a CRP of 127.62. She also had urinalysis that was significant for positive nitrites, 3+ leukocyte esterase, 3+ WBC's, 2+ RBC's, present squamous epithelial cells, and 1+ bacteria. She also had influenza A and B that were negative. The hospitalists were asked to evaluate the patient for admission. PAST MEDICAL HISTORY: 1. Left ventricular hypertrophy. 2. Mitral valve regurgitation. 3. Hypertension. 4. Chronic bilateral lower extremity lymphedema. 5. Chronic left-sided weakness. PAST SURGICAL HISTORY: 1. Status post right carpal tunnel release on 06/25/17. 2. Status post tonsillectomy. 3. Status post excision of meningioma of the right frontal lobe. 4. Status post D and C. HOME MEDICATIONS: Include: 1. Vitamin E 400 units oral daily. 2. Policosanol 20 mg oral daily. 3. Minto oil 1000 mg oral daily. 4. Multivitamin for Seniors 1 capsule oral daily. 5. Losartan 50 mg oral daily. 6. Vitamin B12 plus B6, 1 tablet oral daily. 7. Bee propolis 1 tablet oral daily. 8. Atenolol 50 mg oral daily. 9. Aspirin 81 mg oral daily, the patient states she has been taking 325 mg oral daily since her surgery. 10. Vitamin C 500 mg oral daily. 11. Acetaminophen 1000 mg oral every 8 hours as needed for pain. ALLERGIES: LANOLIN and LATEX. FAMILY HISTORY: The patient's mother had a history of cerebrovascular accident. The patient's father had a history of vascular disease. The patient' s maternal grandmother had a history of diabetes mellitus. The patient's paternal grandmother had a history of stomach cancer. SOCIAL HISTORY: The patient denies tobacco, alcohol, or recreational drug use. She lives alone. The patient would like her surrogate decision makers to be her [id number], Padmaja Turner, in addition to her friend Tamera Gonzalez, Tamera's phone number is [phone], in the event that she is unable to make decisions for herself. REVIEW OF SYSTEMS: I performed a 14-point review of systems. All the pertinent positives and negatives are mentioned in the history of present illness. Remaining review of systems are negative. PHYSICAL EXAMINATION GENERAL APPEARANCE: The patient is alert, pleasant, appears to be in no acute distress. VITAL SIGNS: Temperature 101.0, heart rate 71, respiratory rate 19, O2 sat 96% on room air, blood pressure 177/65. HEENT: Normocephalic and atraumatic. Pupils are equal and reactive to light. Extraocular movements are intact. RESPIRATORY: There is no accessory muscle use. Her lungs are clear to auscultation bilateral. CARDIOVASCULAR: Regular rate and rhythm. S1 and S2 present. There are no murmurs, rubs, or gallops heard. ABDOMEN: Soft, nontender, and nondistended. There are bowel sounds present x4. EXTREMITIES: There is 2+ bilateral lower extremity edema. DP and PT pulses are 2+ and symmetric. MUSCULOSKELETAL: There is no clubbing or cyanosis noted. The patient exhibits good strength in all extremities, but she is noted to have some left-sided weakness. NEUROLOGIC: The patient is alert and oriented x4. Cranial nerves II through XII are grossly intact. PSYCHOLOGICAL: The patient is calm and cooperative. SKIN: The patient has chronic lymphedema changes to her bilateral lower extremities with a slight amount of erythema to the left acevedo and dry flaky skin. Dressing to right wrist is clean, dry and intact. DIAGNOSTIC STUDIES/LAB DATA: Sodium 135, potassium 4.1, chloride 101, CO2 26, BUN 18, creatinine 0.64, glucose 118. Magnesium 1.8, troponin 0.04. CRP 127.62 , BNP 352. INR 1.14. White blood cell count 10.8, hemoglobin 11.0, hematocrit 33, and platelet count 427,000. Chest x-ray from today: Radiologist's impression: Small right pleural effusion versus chronic pleural thickening. EKG from today shows sinus rhythm with a rate of 71. There is LVH and some nonspecific T abnormalities in the lateral leads. This EKG is similar to previous EKG from 06/11/17 with the exception that the downsloping in the ST segment is more pronounced in leads V5 and 6 on this EKG when compared to the previous. IMPRESSION: Ms. Turner is a 77-year-old female with past medical history significant for left ventricular hypertrophy, mitral valve regurgitation, hypertension, chronic lymphedema and left-sided weakness who presented to the emergency room with difficulty ambulating post surgery on her right arm due to her need to use a walker. The patient was found to be febrile and to have a urinary tract infection. She will be admitted as an observation for urinary tract infection and elevated troponin. ASSESSMENT/PLAN: 1. Urinary tract infection. I suspect this is the cause of the patient's elevated CRP and fever. She denies any urinary symptoms. We will start her on IV ceftriaxone and give her IV fluids. She is currently not meeting sepsis criteria by either the qSOFA or SIRS criteria. 2. Elevated troponin. The patient's troponin is 0.04. She denies any chest pain. There are no acute signs of ischemia on her EKG, although she does have some nonspecific ST changes in her EKG. We will trend her troponins, monitor her on telemetry, recheck an EKG in the morning. Again, the patient is denying any chest pain at this time. 3. Inability to ambulate after wrist surgery with her walker. We will get OT and PT. The patient is interested in a possible short-term rehab stay, as she states alone and her family is unable to continue to assist with care. 4. Hypertension. The patient will be continued on her home losartan and atenolol. 5. Status post right carpal tunnel release. At this point, I do not believe that the patient's surgical incision is the source of her infection. For now, I recommend leaving the dressing intact and if it is felt that there possibly could be an infection in her right wrist, recommend contacting Orthopedic Surgery and see if they will assess the incision. 6. Fluids, electrolytes and nutrition. Regular diet. 7. Code status. Full code. 8. DVT prophylaxis. The patient is at high risk and will be placed on subcu heparin. 9. Disposition. Observation. TIME SPENT: Time for this admission was approximately 60 minutes, greater than half of that was spent with the patient discussing medications, past medical history, the events leading up to her arrival today, performing a physical examination. The case has been reviewed with the attending, Dr. Escobar, who agrees with the plan of care. Reviewed by SUSAN MARQUEZ 06/30/17 1428 [id number]/[facility] #: [id number] [place]
[2017-06-28 05:29] LABS: Hematocrit 30 % (35-47); Hemoglobin 10.5 g/dl (12.0-16.0); Mean Corpuscular HGB Conc 35 g/dl (31-36); Mean Corpuscular Hemoglobin 29 pg (27-31); Mean Corpuscular Volume 83 fL (80-97); Mean Platelet Volume 6 um3 (7.4-10.4); Red Blood Count 3.62 10^6/ul (4.0-5.4); Red Cell Distribution Width 14 % (10.5-15); White Blood Count 11.7 10^3/ul (3.5-10.8)
[2017-06-28 05:51] LABS: BUN/Creatinine Ratio 22.2 (8-20); Calcium 8.8 mg/dL (8.6-10.3); EGFR African American 140.4 (>60); EGFR Non-African American 109.2 (>60); Potassium 3.8 mmol/L (3.5-5.0)
[2017-06-28] MEDS: Heparin VIAL(*) 5000 UNITS/ML VIAL (FIVE THOUSAND) SUBCUT SCH ×3 (05:52→22:01)
[2017-06-28] MEDS: Atenolol TAB* 50 MG PO SCH (09:18)
[2017-06-28] MEDS: Losartan TAB* 25 MG PO SCH (09:18)
[2017-06-28] MEDS: Aspirin EC Low Dose* 81 MG TAB.EC PO SCH (09:18)
--- NOTE | 2017-06-28 12:47 | PN ---
Subjective Date of Service: 06/28/17 Interval History: pt has chronic left sided weakness ever since her meningioma resection "years ago". Usually ambulates with a walker, but after her R wrist surgery, she had been unable to manage at home. Objective Active Medications: Acetaminophen (Tylenol Tab*) 650 mg PO Q4H PRN PRN Reason: FEVER/PAIN Aspirin (Aspirin Ec Low Dose*) 81 mg PO DAILY [facility] Last Admin: 06/28/17 09:18 Dose: 81 mg Atenolol (Tenormin Tab*) 50 mg PO DAILY [facility] Last Admin: 06/28/17 09:18 Dose: 50 mg Heparin Sodium (Porcine) (Heparin Vial(*)) 5,000 units SUBCUT Q8HR [facility] Last Admin: 06/28/17 05:52 Dose: 5,000 units Hydralazine HCl (Apresoline Iv*) 10 mg IV Q4H PRN PRN Reason: Systolic >170 Last Admin: 06/27/17 23:06 Dose: 10 mg Ceftriaxone Sodium 1,000 mg/ (Sodium Chloride) 50 mls @ 200 mls/hr IVPB Q24H [facility] Last Admin: 06/27/17 22:57 Dose: Not Given Losartan Potassium (Cozaar Tab*) 50 mg PO DAILY [facility] Last Admin: 06/28/17 09:18 Dose: 50 mg Vital Signs 06/28/17 12:17 Temperature 99.3 F Pulse Rate 66 Respiratory 18 Rate Blood Pressure 134/54 (mmHg) O2 Sat by Pulse 94 Oximetry Oxygen Devices in Use Now: None Appearance: 77 yo F in NAD, aAOx3 Eyes: No Scleral Icterus, PERRLA Ears/Nose/Mouth/Throat: NL Teeth, Lips, Gums, Mucous Membranes Moist Neck: NL Appearance and Movements; NL JVP, No Thyroid Enlargement, Masses Respiratory: Symmetrical Chest Expansion and Respiratory Effort, Clear to Auscultation Cardiovascular: NL Sounds; No Murmurs; No JVD, - - 2/6 ZOILA at apex Abdominal: NL Sounds; No Tenderness; No Distention, No Hepatosplenomegaly Lymphatic: No Cervical Adenopathy Extremities: No Clubbing, Cyanosis, - - b/l leg lymphoedema L>R Skin: No Nodules or Sclerosis, - - R wirst in post op dressings-not removed Neurological: Alert and Oriented x 3, NL Muscle Strength and Tone - L sided weakness at 4+/5 in UE and LE Result Diagrams: 06/28/17 05:20 06/28/17 05:19 Additional Lab and Data: Lab Results 06/27/17 06/27/17 06/27/17 Range/Units 19:15 19:15 19:15 WBC (3.5-10.8) 10^3/ul RBC (4.0-5.4) 10^6/ul Hgb (12.0-16.0) g/dl Hct (35-47) % MCV (80-97) fL MCH (27-31) pg MCHC (31-36) g/dl RDW (10.5-15) % Plt Count (150-450) 10^3/ul MPV (7.4-10.4) um3 Neut % (Auto) (38-83) % Lymph % (Auto) (25-47) % [place] % (Auto) (1-9) % Eos % (Auto) (0-6) % Baso % (Auto) (0-2) % Absolute Neuts (auto) (1.5-7.7) 10^3/ul Absolute Lymphs (auto) (1.0-4.8) 10^3/ul Absolute Monos (auto) (0-0.8) 10^3/ul Absolute Eos (auto) (0-0.6) 10^3/ul Absolute Basos (auto) (0-0.2) 10^3/ul Absolute Nucleated RBC 10^3/ul Nucleated RBC % INR (Anticoag Therapy) 1.14 H (0.89-1.11) APTT 21.3 L (26.0-36.3) seconds Sodium 135 (133-145) mmol/L Potassium 4.1 (3.5-5.0) mmol/L Chloride 101 (101-111) mmol/L Carbon Dioxide 26 (22-32) mmol/L Anion Gap 8 (2-11) mmol/L BUN 18 (6-24) mg/dL Creatinine 0.64 (0.51-0.95) mg/dL Est GFR ( Amer) 115.4 (>60) Est GFR (Non-Af Amer) 89.7 (>60) BUN/Creatinine Ratio 28.1 H (8-20) Glucose 110 H (70-100) mg/dL Lactic Acid (0.5-2.0) mmol/L Calcium 9.6 (8.6-10.3) mg/dL Magnesium 1.8 L (1.9-2.7) mg/dL Total Bilirubin 0.70 (0.2-1.0) mg/dL AST 11 L (13-39) U/L ALT 10 (7-52) U/L Alkaline Phosphatase 84 (34-104) U/L Troponin I 0.04 H* (<0.04) ng/mL C-Reactive Protein 127.62 H (< 5.00) mg/L B-Natriuretic Peptide 352 H ( - 100) pg/mL Total Protein 7.3 (6.4-8.9) g/dL Albumin 3.7 (3.2-5.2) g/dL Globulin 3.6 (2-4) g/dL Albumin/Globulin Ratio 1.0 (1-3) TSH 0.91 (0.34-5.60) mcIU/mL Urine Color Urine Appearance Urine pH (5-9) Ur Specific Curtis (1.010-1.030) Urine Protein (Negative) Urine Ketones (Negative) Urine Blood (Negative) Urine Nitrate (Negative) Urine Bilirubin (Negative) Urine Urobilinogen (Negative) Ur Leukocyte Esterase (Negative) Urine WBC (Auto) (Absent) Urine RBC (Auto) (Absent) Ur Squamous Epith Cells (Absent) Urine Bacteria (Absent) Urine Glucose (Negative) Influenza A (Rapid) (Negative) Influenza B (Rapid) (Negative) 06/27/17 06/27/17 06/27/17 Range/Units 19:15 19:15 19:36 WBC 10.8 (3.5-10.8) 10^3/ul RBC 3.99 L (4.0-5.4) 10^6/ul Hgb 11.0 L (12.0-16.0) g/dl Hct 33 L (35-47) % MCV 82 (80-97) fL MCH 28 (27-31) pg MCHC 34 (31-36) g/dl RDW 14 (10.5-15) % Plt Count 427 (150-450) 10^3/ul MPV 6 L (7.4-10.4) um3 Neut % (Auto) 78.6 (38-83) % Lymph % (Auto) 12.0 L (25-47) % [place] % (Auto) 7.4 (1-9) % Eos % (Auto) 1.5 (0-6) % Baso % (Auto) 0.5 (0-2) % Absolute Neuts (auto) 8.5 H (1.5-7.7) 10^3/ul Absolute Lymphs (auto) 1.3 (1.0-4.8) 10^3/ul Absolute Monos (auto) 0.8 (0-0.8) 10^3/ul Absolute Eos (auto) 0.2 (0-0.6) 10^3/ul Absolute Basos (auto) 0 (0-0.2) 10^3/ul Absolute Nucleated RBC 0.02 10^3/ul Nucleated RBC % 0.1 INR (Anticoag Therapy) (0.89-1.11) APTT (26.0-36.3) seconds Sodium (133-145) mmol/L Potassium (3.5-5.0) mmol/L Chloride (101-111) mmol/L Carbon Dioxide (22-32) mmol/L Anion Gap (2-11) mmol/L BUN (6-24) mg/dL Creatinine (0.51-0.95) mg/dL Est GFR ( Amer) (>60) Est GFR (Non-Af Amer) (>60) BUN/Creatinine Ratio (8-20) Glucose (70-100) mg/dL Lactic Acid 0.7 (0.5-2.0) mmol/L Calcium (8.6-10.3) mg/dL Magnesium (1.9-2.7) mg/dL Total Bilirubin (0.2-1.0) mg/dL AST (13-39) U/L ALT (7-52) U/L Alkaline Phosphatase (34-104) U/L Troponin I (<0.04) ng/mL C-Reactive Protein (< 5.00) mg/L B-Natriuretic Peptide ( - 100) pg/mL Total Protein (6.4-8.9) g/dL Albumin (3.2-5.2) g/dL Globulin (2-4) g/dL Albumin/Globulin Ratio (1-3) TSH (0.34-5.60) mcIU/mL Urine Color Urine Appearance Urine pH (5-9) Ur Specific Curtis (1.010-1.030) Urine Protein (Negative) Urine Ketones (Negative) Urine Blood (Negative) Urine Nitrate (Negative) Urine Bilirubin (Negative) Urine Urobilinogen (Negative) Ur Leukocyte Esterase (Negative) Urine WBC (Auto) (Absent) Urine RBC (Auto) (Absent) Ur Squamous Epith Cells (Absent) Urine Bacteria (Absent) Urine Glucose (Negative) Influenza A (Rapid) Negative (Negative) Influenza B (Rapid) Negative (Negative) 06/27/17 Range/Units 20:00 WBC (3.5-10.8) 10^3/ul RBC (4.0-5.4) 10^6/ul Hgb (12.0-16.0) g/dl Hct (35-47) % MCV (80-97) fL MCH (27-31) pg MCHC (31-36) g/dl RDW (10.5-15) % Plt Count (150-450) 10^3/ul MPV (7.4-10.4) um3 Neut % (Auto) (38-83) % Lymph % (Auto) (25-47) % [place] % (Auto) (1-9) % Eos % (Auto) (0-6) % Baso % (Auto) (0-2) % Absolute Neuts (auto) (1.5-7.7) 10^3/ul Absolute Lymphs (auto) (1.0-4.8) 10^3/ul Absolute Monos (auto) (0-0.8) 10^3/ul Absolute Eos (auto) (0-0.6) 10^3/ul Absolute Basos (auto) (0-0.2) 10^3/ul Absolute Nucleated RBC 10^3/ul Nucleated RBC % INR (Anticoag Therapy) (0.89-1.11) APTT (26.0-36.3) seconds Sodium (133-145) mmol/L Potassium (3.5-5.0) mmol/L Chloride (101-111) mmol/L Carbon Dioxide (22-32) mmol/L Anion Gap (2-11) mmol/L BUN (6-24) mg/dL Creatinine (0.51-0.95) mg/dL Est GFR ( Amer) (>60) Est GFR (Non-Af Amer) (>60) BUN/Creatinine Ratio (8-20) Glucose (70-100) mg/dL Lactic Acid (0.5-2.0) mmol/L Calcium (8.6-10.3) mg/dL Magnesium (1.9-2.7) mg/dL Total Bilirubin (0.2-1.0) mg/dL AST (13-39) U/L ALT (7-52) U/L Alkaline Phosphatase (34-104) U/L Troponin I (<0.04) ng/mL C-Reactive Protein (< 5.00) mg/L B-Natriuretic Peptide ( - 100) pg/mL Total Protein (6.4-8.9) g/dL Albumin (3.2-5.2) g/dL Globulin (2-4) g/dL Albumin/Globulin Ratio (1-3) TSH (0.34-5.60) mcIU/mL Urine Color Yellow Urine Appearance Cloudy Urine pH 7.0 (5-9) Ur Specific Curtis 1.019 (1.010-1.030) Urine Protein 1+(30 mg/dl) H (Negative) Urine Ketones Trace H (Negative) Urine Blood Negative (Negative) Urine Nitrate Positive H (Negative) Urine Bilirubin Negative (Negative) Urine Urobilinogen Positive H (Negative) Ur Leukocyte Esterase 3+ H (Negative) Urine WBC (Auto) 3+(>20/hpf) H (Absent) Urine RBC (Auto) 2+(6-10/hpf) H (Absent) Ur Squamous Epith Cells Present H (Absent) Urine Bacteria 1+ H (Absent) Urine Glucose Negative (Negative) Influenza A (Rapid) (Negative) Influenza B (Rapid) (Negative) Assess/Plan/Problems-Billing Assessment: 77 yo F with h/o chronic left sided weakness,mitral regurg, presents with generalized weakness and fever 2 days after R carpal tunnel release and was found to have UTI - Patient Problems (1) UTI (urinary tract infection) Comment: cont Ceftriaxone, urine cx pending (2) HTN (hypertension) Comment: now, better controlled cont Atenolol/Losartan (3) DVT prophylaxis Comment: heparin sc Status and Disposition: OBV changed to inpatient
[2017-06-28 13:38] LABS: Troponin I 0.05 ng/mL (<0.04)
--- NOTE | 2017-06-28 14:49 | RAD ---
INDICATION: Right knee pain COMPARISON: None TECHNIQUE: AP and lateral views were obtained. FINDINGS: There is minor patellofemoral and medial and lateral joint space spurring. There is mild diffuse joint space narrowing with chondrocalcinosis. There is no acute bony change. There is no joint effusion. 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
--- NOTE | 2017-06-28 15:02 | RAD ---
Indication: Left leg edema.. Duplex Doppler sonography of the deep venous system of the left lower extremity deep venous system was performed. Bilaterally the common femoral veins appear patent and compressible. Left proximal greater saphenous vein, proximal deep femoral vein, femoral vein, popliteal vein, posterior tibial veins appear patent and compressible. Peroneal veins are limited in evaluation. Soft tissue swelling is noted in the left calf. IMPRESSION: LIMITED EVALUATION OF THE PERONEAL VEINS. NO DEFINITE DEEP VENOUS THROMBOSIS IS NOTED.
[2017-06-28] MEDS: cefTRIAXone VIAL(*) 1,000 MG in NS 0.9% 50 ML* 50 ML IVPB SCH (22:02)
[2017-06-29 05:39] LABS: Hematocrit 28 % (35-47); Hemoglobin 9.5 g/dl (12.0-16.0); Mean Corpuscular HGB Conc 34 g/dl (31-36); Mean Corpuscular Hemoglobin 28 pg (27-31); Mean Corpuscular Volume 82 fL (80-97); Mean Platelet Volume 7 um3 (7.4-10.4); Red Blood Count 3.45 10^6/ul (4.0-5.4); Red Cell Distribution Width 14 % (10.5-15); White Blood Count 9.4 10^3/ul (3.5-10.8)
[2017-06-29] MEDS: Heparin VIAL(*) 5000 UNITS/ML VIAL (FIVE THOUSAND) SUBCUT SCH ×3 (05:47→22:12)
[2017-06-29 06:03] LABS: BUN/Creatinine Ratio 29.5 (8-20); Calcium 8.7 mg/dL (8.6-10.3); EGFR Non-African American 94.9 (>60)
[2017-06-29 06:59] LABS: Troponin I 0.07 ng/mL (<0.04)
[2017-06-29] MEDS: Aspirin EC Low Dose* 81 MG TAB.EC PO SCH (07:52)
[2017-06-29] MEDS: Atenolol TAB* 50 MG PO SCH (07:52)
[2017-06-29] MEDS: Losartan TAB* 25 MG PO SCH (07:52)
[2017-06-29] MEDS ORDERED: Perflutren Lipid Microsphere* 3 ML VIAL ONE (12:02)
[2017-06-29] MEDS: Acetaminophen TAB* 325 MG PO PRN (12:41)
--- NOTE | 2017-06-29 13:56 | PN ---
Subjective Date of Service: 06/29/17 Interval History: Pt had been refusing Ceftriaxone (Rocephin) due to that , that it ends on "in" the same as Levaquin . She apparently heard a lot about side effects of Levaquin and her granddaughter " who has the same genetic DNA as pt" had major issues after taking Levaquin. Explained to pt and Levaquin is not "related "to Ceftriaxone and the side effect profile is different. Pt also concerned about possibility of getting a rash from the antibiotic, since it the past she got a rash from a lotion that she got. Reassured pt that if she used penicillin it the past with no reaction there is low possibility of getting a rash, although we cannot exclude it a side effect. Pt agreed to take Ceftriaxone Has no new complaints Objective Active Medications: Acetaminophen (Tylenol Tab*) 650 mg PO Q4H PRN PRN Reason: FEVER/PAIN Last Admin: 06/29/17 12:41 Dose: 650 mg Aspirin (Aspirin Ec Low Dose*) 81 mg PO DAILY [facility] Last Admin: 06/29/17 07:52 Dose: 81 mg Atenolol (Tenormin Tab*) 50 mg PO DAILY [facility] Last Admin: 06/29/17 07:52 Dose: 50 mg Heparin Sodium (Porcine) (Heparin Vial(*)) 5,000 units SUBCUT Q8HR [facility] Last Admin: 06/29/17 05:47 Dose: 5,000 units Hydralazine HCl (Apresoline Iv*) 10 mg IV Q4H PRN PRN Reason: Systolic >170 Last Admin: 06/27/17 23:06 Dose: 10 mg Ceftriaxone Sodium 1,000 mg/ (Sodium Chloride) 50 mls @ 200 mls/hr IVPB Q24H [facility] Last Admin: 06/28/17 22:02 Dose: Not Given Losartan Potassium (Cozaar Tab*) 50 mg PO DAILY [facility] Last Admin: 06/29/17 07:52 Dose: 50 mg Vital Signs 06/28/17 06/28/17 06/28/17 15:02 19:17 20:00 Temperature 98.3 F 99.2 F Pulse Rate 70 71 Respiratory 16 16 16 Rate Blood Pressure 139/44 128/39 (mmHg) O2 Sat by Pulse 95 95 Oximetry 06/28/17 06/29/17 06/29/17 23:53 07:32 08:00 Temperature 98.1 F 98.5 F Pulse Rate 80 75 Respiratory 20 20 20 Rate Blood Pressure 133/56 157/56 (mmHg) O2 Sat by Pulse 92 94 Oximetry Oxygen Devices in Use Now: None Appearance: 77 yo F in nAD, aAOx3 Eyes: No Scleral Icterus, PERRLA Ears/Nose/Mouth/Throat: NL Teeth, Lips, Gums, Mucous Membranes Moist Neck: NL Appearance and Movements; NL JVP, Trachea Midline Respiratory: Symmetrical Chest Expansion and Respiratory Effort, Clear to Auscultation Cardiovascular: RRR, - - 2/6 ZOILA at apex Abdominal: NL Sounds; No Tenderness; No Distention, No Hepatosplenomegaly Lymphatic: No Cervical Adenopathy Extremities: No Clubbing, Cyanosis, - - b/l leg edema L>R Skin: No Nodules or Sclerosis, - - venosu stasis dermatitis in L LE, R wrist in post op dressings Neurological: Alert and Oriented x 3, - - left sided weakness at 4+/5 Result Diagrams: 06/29/17 05:04 06/29/17 05:04 Additional Lab and Data: Lab Results 06/27/17 06/27/17 06/27/17 Range/Units 19:15 19:15 19:15 WBC (3.5-10.8) 10^3/ul RBC (4.0-5.4) 10^6/ul Hgb (12.0-16.0) g/dl Hct (35-47) % MCV (80-97) fL MCH (27-31) pg MCHC (31-36) g/dl RDW (10.5-15) % Plt Count (150-450) 10^3/ul MPV (7.4-10.4) um3 Neut % (Auto) (38-83) % Lymph % (Auto) (25-47) % Teller % (Auto) (1-9) % Eos % (Auto) (0-6) % Baso % (Auto) (0-2) % Absolute Neuts (auto) (1.5-7.7) 10^3/ul Absolute Lymphs (auto) (1.0-4.8) 10^3/ul Absolute Monos (auto) (0-0.8) 10^3/ul Absolute Eos (auto) (0-0.6) 10^3/ul Absolute Basos (auto) (0-0.2) 10^3/ul Absolute Nucleated RBC 10^3/ul Nucleated RBC % INR (Anticoag Therapy) 1.14 H (0.89-1.11) APTT 21.3 L (26.0-36.3) seconds Sodium 135 (133-145) mmol/L Potassium 4.1 (3.5-5.0) mmol/L Chloride 101 (101-111) mmol/L Carbon Dioxide 26 (22-32) mmol/L Anion Gap 8 (2-11) mmol/L BUN 18 (6-24) mg/dL Creatinine 0.64 (0.51-0.95) mg/dL Est GFR ( Amer) 115.4 (>60) Est GFR (Non-Af Amer) 89.7 (>60) BUN/Creatinine Ratio 28.1 H (8-20) Glucose 110 H (70-100) mg/dL Lactic Acid (0.5-2.0) mmol/L Calcium 9.6 (8.6-10.3) mg/dL Magnesium 1.8 L (1.9-2.7) mg/dL Total Bilirubin 0.70 (0.2-1.0) mg/dL AST 11 L (13-39) U/L ALT 10 (7-52) U/L Alkaline Phosphatase 84 (34-104) U/L Troponin I 0.04 H* (<0.04) ng/mL C-Reactive Protein 127.62 H (< 5.00) mg/L B-Natriuretic Peptide 352 H ( - 100) pg/mL Total Protein 7.3 (6.4-8.9) g/dL Albumin 3.7 (3.2-5.2) g/dL Globulin 3.6 (2-4) g/dL Albumin/Globulin Ratio 1.0 (1-3) TSH 0.91 (0.34-5.60) mcIU/mL Urine Color Urine Appearance Urine pH (5-9) Ur Specific [place] (1.010-1.030) Urine Protein (Negative) Urine Ketones (Negative) Urine Blood (Negative) Urine Nitrate (Negative) Urine Bilirubin (Negative) Urine Urobilinogen (Negative) Ur Leukocyte Esterase (Negative) Urine WBC (Auto) (Absent) Urine RBC (Auto) (Absent) Ur Squamous Epith Cells (Absent) Urine Bacteria (Absent) Urine Glucose (Negative) Influenza A (Rapid) (Negative) Influenza B (Rapid) (Negative) 06/27/17 06/27/17 06/27/17 Range/Units 19:15 19:15 19:36 WBC 10.8 (3.5-10.8) 10^3/ul RBC 3.99 L (4.0-5.4) 10^6/ul Hgb 11.0 L (12.0-16.0) g/dl Hct 33 L (35-47) % MCV 82 (80-97) fL MCH 28 (27-31) pg MCHC 34 (31-36) g/dl RDW 14 (10.5-15) % Plt Count 427 (150-450) 10^3/ul MPV 6 L (7.4-10.4) um3 Neut % (Auto) 78.6 (38-83) % Lymph % (Auto) 12.0 L (25-47) % Teller % (Auto) 7.4 (1-9) % Eos % (Auto) 1.5 (0-6) % Baso % (Auto) 0.5 (0-2) % Absolute Neuts (auto) 8.5 H (1.5-7.7) 10^3/ul Absolute Lymphs (auto) 1.3 (1.0-4.8) 10^3/ul Absolute Monos (auto) 0.8 (0-0.8) 10^3/ul Absolute Eos (auto) 0.2 (0-0.6) 10^3/ul Absolute Basos (auto) 0 (0-0.2) 10^3/ul Absolute Nucleated RBC 0.02 10^3/ul Nucleated RBC % 0.1 INR (Anticoag Therapy) (0.89-1.11) APTT (26.0-36.3) seconds Sodium (133-145) mmol/L Potassium (3.5-5.0) mmol/L Chloride (101-111) mmol/L Carbon Dioxide (22-32) mmol/L Anion Gap (2-11) mmol/L BUN (6-24) mg/dL Creatinine (0.51-0.95) mg/dL Est GFR ( Amer) (>60) Est GFR (Non-Af Amer) (>60) BUN/Creatinine Ratio (8-20) Glucose (70-100) mg/dL Lactic Acid 0.7 (0.5-2.0) mmol/L Calcium (8.6-10.3) mg/dL Magnesium (1.9-2.7) mg/dL Total Bilirubin (0.2-1.0) mg/dL AST (13-39) U/L ALT (7-52) U/L Alkaline Phosphatase (34-104) U/L Troponin I (<0.04) ng/mL C-Reactive Protein (< 5.00) mg/L B-Natriuretic Peptide ( - 100) pg/mL Total Protein (6.4-8.9) g/dL Albumin (3.2-5.2) g/dL Globulin (2-4) g/dL Albumin/Globulin Ratio (1-3) TSH (0.34-5.60) mcIU/mL Urine Color Urine Appearance Urine pH (5-9) Ur Specific [place] (1.010-1.030) Urine Protein (Negative) Urine Ketones (Negative) Urine Blood (Negative) Urine Nitrate (Negative) Urine Bilirubin (Negative) Urine Urobilinogen (Negative) Ur Leukocyte Esterase (Negative) Urine WBC (Auto) (Absent) Urine RBC (Auto) (Absent) Ur Squamous Epith Cells (Absent) Urine Bacteria (Absent) Urine Glucose (Negative) Influenza A (Rapid) Negative (Negative) Influenza B (Rapid) Negative (Negative) 06/27/17 Range/Units 20:00 WBC (3.5-10.8) 10^3/ul RBC (4.0-5.4) 10^6/ul Hgb (12.0-16.0) g/dl Hct (35-47) % MCV (80-97) fL MCH (27-31) pg MCHC (31-36) g/dl RDW (10.5-15) % Plt Count (150-450) 10^3/ul MPV (7.4-10.4) um3 Neut % (Auto) (38-83) % Lymph % (Auto) (25-47) % Teller % (Auto) (1-9) % Eos % (Auto) (0-6) % Baso % (Auto) (0-2) % Absolute Neuts (auto) (1.5-7.7) 10^3/ul Absolute Lymphs (auto) (1.0-4.8) 10^3/ul Absolute Monos (auto) (0-0.8) 10^3/ul Absolute Eos (auto) (0-0.6) 10^3/ul Absolute Basos (auto) (0-0.2) 10^3/ul Absolute Nucleated RBC 10^3/ul Nucleated RBC % INR (Anticoag Therapy) (0.89-1.11) APTT (26.0-36.3) seconds Sodium (133-145) mmol/L Potassium (3.5-5.0) mmol/L Chloride (101-111) mmol/L Carbon Dioxide (22-32) mmol/L Anion Gap (2-11) mmol/L BUN (6-24) mg/dL Creatinine (0.51-0.95) mg/dL Est GFR ( Amer) (>60) Est GFR (Non-Af Amer) (>60) BUN/Creatinine Ratio (8-20) Glucose (70-100) mg/dL Lactic Acid (0.5-2.0) mmol/L Calcium (8.6-10.3) mg/dL Magnesium (1.9-2.7) mg/dL Total Bilirubin (0.2-1.0) mg/dL AST (13-39) U/L ALT (7-52) U/L Alkaline Phosphatase (34-104) U/L Troponin I (<0.04) ng/mL C-Reactive Protein (< 5.00) mg/L B-Natriuretic Peptide ( - 100) pg/mL Total Protein (6.4-8.9) g/dL Albumin (3.2-5.2) g/dL Globulin (2-4) g/dL Albumin/Globulin Ratio (1-3) TSH (0.34-5.60) mcIU/mL Urine Color Yellow Urine Appearance Cloudy Urine pH 7.0 (5-9) Ur Specific [place] 1.019 (1.010-1.030) Urine Protein 1+(30 mg/dl) H (Negative) Urine Ketones Trace H (Negative) Urine Blood Negative (Negative) Urine Nitrate Positive H (Negative) Urine Bilirubin Negative (Negative) Urine Urobilinogen Positive H (Negative) Ur Leukocyte Esterase 3+ H (Negative) Urine WBC (Auto) 3+(>20/hpf) H (Absent) Urine RBC (Auto) 2+(6-10/hpf) H (Absent) Ur Squamous Epith Cells Present H (Absent) Urine Bacteria 1+ H (Absent) Urine Glucose Negative (Negative) Influenza A (Rapid) (Negative) Influenza B (Rapid) (Negative) Assess/Plan/Problems-Billing Assessment: 77 yo F with h/o chronic left sided weakness,mitral regurg, presents with generalized weakness and fever 2 days after R carpal tunnel release and was found to have UTI - Patient Problems (1) UTI (urinary tract infection) Comment: cont Ceftriaxone, urine cx + E. coli (2) HTN (hypertension) Comment: now, better controlled cont Atenolol/Losartan (3) Left-sided weakness Comment: chronic, as a consequence of meningioma resection in the past (4) Carpal tunnel syndrome of right wrist Comment: s/p surgical correction by Dr. Liz on 06/25/17 Dr. Liz examined the wound today. Recommended f/u in office in one week for suture removal (5) Elevated troponin Comment: Trop max at 0.07-indeterminate Pt is asymptomatic from cardiac standpoint. Echo pending (6) Left knee pain Comment: chronic, suspect due to OA. No abnormalities on exam, no effusion. XRays unremarkable Dopplers neg for DVT (7) DVT prophylaxis Comment: heparin sc Status and Disposition: inpatient, planned to go to [facility].
--- NOTE | 2017-06-29 16:04 | ECHO ---
Patient: FARNAZ BANDA [facility] Rec#: [id number] : 1940 Date: 06/29/2017 Age: 77y Height: 149.86 cm / 59.0 in Weight: 71.67 kg / 158.0 lbs Sex: F BSA: 1.67 Room#: 440 Admit Date#: 06/28/2017 Type: Inpatient Referring: Mary Sanderson MD Reading: Donavon Campos MD Hand Former Helper: Marjan Kennedy,PREMACS,RDMS CC: Satish Durand Transthoracic Echocardiogram Indication: MV disorder, Elevated Trop BP: 157/56 HR: 65 Rhythm: NSR Findings History: MV insufficiency, LVOT obstruction, HTN, LVH, bilateral lower extemity lymphedema Technical Comments: The study quality is fair. The study is technically limited due to poor acoustic windows. Completed 1300 Left Ventricle: The left ventricular chamber size is normal. Mild to moderate concentric left ventricular hypertrophy is observed. Basal interventricular septum shows moderate thickening. Global left ventricular wall motion and contractility are within normal limits. There is normal left ventricular systolic function. The estimated ejection fraction is 60-65%. Abnormal left ventricular diastolic function is observed. Left Atrium: The left atrium is mildly dilated. Right Ventricle: The right ventricular chamber size and systolic function are within normal limits. Right Atrium: The right atrial cavity size is normal. Aortic Valve: The aortic valve leaflets are mildly thickened. There is aortic annular calcification. There is a trace of aortic regurgitation. There is no evidence of aortic stenosis. Mitral Valve: Moderate mitral annular calcification present. The mitral valve leaflets are mildly thickened. There is moderate to severe mitral regurgitation. There is mild mitral stenosis. Systolic anterior motion is visualized without left ventricular outflow tract obstruction. Tricuspid Valve: The tricuspid valve leaflets are normal. There is mild tricuspid regurgitation. The right ventricular systolic pressure is estimated at 46 mmHg. There is evidence of mild to moderate pulmonary hypertension. Pulmonic Valve: The pulmonic valve structure is not well visualized. Pericardium: There is no significant pericardial effusion. Aorta: The aortic root appears normal. The ascending aorta is not well visualized. There is no dilatation of the aortic arch. Pulmonary Artery: The main pulmonary artery is not well visualized. Venous: The inferior vena cava is dilated. There is less than 50% respiratory change in the inferior vena cava dimension. Contrast: Definity was used to optimize study. A total of 3 ml was used Conclusions Mild to moderate concentric left ventricular hypertrophy is observed. Basal interventricular septum shows moderate thickening. The estimated ejection fraction is 60-65%. Global left ventricular wall motion and contractility are within normal limits. The right ventricular chamber size and systolic function are within normal limits. There is a trace of aortic regurgitation. There is no evidence of aortic stenosis. There is moderate to severe mitral regurgitation. Systolic anterior motion is visualized without left ventricular outflow tract obstruction. There is mild tricuspid regurgitation. The right ventricular systolic pressure is estimated at 46 mmHg. There is no significant pericardial effusion. Measurements Name Value Normal Range RVIDd (AP) 2D 2.9 cm (0.9 - 2.6) RVDdMajor (2D) 2.5 cm (2.2 - 4.4) RAd ISD 4CH 4.6 cm (3.4 - 4.9) RA (A4C)W 3.7 cm (2.9 - 4.6) IVSd (2D) 1.6 cm (0.6 - 1) LVPWd (2D) 1.3 cm (0.6 - 1) LVIDd (2D) 4.2 cm (3.6 - 5.4) LVIDs (2D) 2.4 cm - LV FS (2D) 42 % (25 - 45) Aortic Annulus 1.7 cm (1.4 - 2.6) Aortic arch 2.7 cm (1.8 - 3.4) LA dimension (AP) 2D 4.6 cm (2.3 - 3.8) LAd ISD 4CH 5.1 cm (2.9 - 5.3) LA ISD 4CH W 4.3 cm (2.5 - 4.5) Name Value Normal Range LA ESV SP 4CH (A/L) 56.43 ml - LA ESV SP 2CH (A/L) 72.06 ml - LA ESV BP (A/L) 66.85 ml - LA ESV BP (A/L) index 40 ml/m2 - LA ESV SP 4CH (MOD) 53.46 ml - LA ESV SP 2CH (MOD) 68.5 ml - Name Value Normal Range MV E-wave Vmax 1.5 m/sec - MV deceleration time 256 msec - MV A-wave Vmax 1.3 m/sec - MV E:A ratio 1.2 ratio - P. vein S-wave Vmax 0.5 m/sec - P. vein D-wave Vmax 0.5 m/sec - P. vein S:D Vmax ratio 0.9 ratio - P. vein A-wave duration 133 msec - LV septal e' Vmax 0.05 m/sec - LV lateral e' Vmax 0.06 m/sec - LV E:e' septal ratio 30 ratio - LV E:e' lateral ratio 25 ratio - Name Value Normal Range AV Vmax 2.4 m/sec - AV VTI 53 cm - AV peak gradient 23 mmHg - AV mean gradient 13 mmHg - LVOT diameter 2 cm - LVOT Vmax 2.5 m/sec - LVOT VTI 59 cm - LVOT peak gradient 25 mmHg - LVOT mean gradient 13 mmHg - SV LVOT 180.01 ml - MAINOR (continuity Vmax) 3.4 cm2 - MAINOR (continuity VTI) 3.4 cm2 - DANIELLE Vmax 0.7 m/sec - Name Value Normal Range MV Vmax 1.9 m/sec - MV VTI 50.3 cm - MV peak gradient 14 mmHg - MV mean gradient 4.7 mmHg - MV PHT 60 msec - MVA (PHT) 3.7 cm2 - MVA (continuity VTI) 3.7 cm2 - Name Value Normal Range TR Vmax 3.1 m/sec - TR peak gradient 38 mmHg - RAP 8 mmHg - RVSP 46 mmHg - IVC diameter 2.2 cm - Name Value Normal Range PV Vmax 0.6 m/sec - PV peak gradient 1.5 mmHg -
[2017-06-29] MEDS: cefTRIAXone VIAL(*) 1,000 MG in NS 0.9% 50 ML* 50 ML IVPB SCH (20:44)
[2017-06-30] MEDS: Heparin VIAL(*) 5000 UNITS/ML VIAL (FIVE THOUSAND) SUBCUT SCH ×3 (05:46→20:57)
[2017-06-30] MEDS: Losartan TAB* 25 MG PO SCH (08:09)
[2017-06-30] MEDS: Aspirin EC Low Dose* 81 MG TAB.EC PO SCH (08:10)
[2017-06-30] MEDS: Atenolol TAB* 50 MG PO SCH (08:10)
[2017-06-30 10:16] LABS: Hematocrit 30 % (35-47); Hemoglobin 10.1 g/dl (12.0-16.0); Mean Corpuscular HGB Conc 33 g/dl (31-36); Mean Corpuscular Hemoglobin 27 pg (27-31); Mean Corpuscular Volume 82 fL (80-97); Mean Platelet Volume 7 um3 (7.4-10.4); Red Cell Distribution Width 14 % (10.5-15); White Blood Count 8.3 10^3/ul (3.5-10.8)
--- NOTE | 2017-06-30 12:06 | PN ---
Subjective Date of Service: 06/30/17 Interval History: Pt c/o left knee pain that had been a problem for several weeks now. Objective Active Medications: Acetaminophen (Tylenol Tab*) 650 mg PO Q4H PRN PRN Reason: FEVER/PAIN Last Admin: 06/29/17 12:41 Dose: 650 mg Aspirin (Aspirin Ec Low Dose*) 81 mg PO DAILY [facility] Last Admin: 06/30/17 08:10 Dose: 81 mg Atenolol (Tenormin Tab*) 50 mg PO DAILY [facility] Last Admin: 06/30/17 08:10 Dose: 50 mg Heparin Sodium (Porcine) (Heparin Vial(*)) 5,000 units SUBCUT Q8HR [facility] Last Admin: 06/30/17 05:46 Dose: 5,000 units Hydralazine HCl (Apresoline Iv*) 10 mg IV Q4H PRN PRN Reason: Systolic >170 Last Admin: 06/27/17 23:06 Dose: 10 mg Ceftriaxone Sodium 1,000 mg/ (Sodium Chloride) 50 mls @ 200 mls/hr IVPB Q24H [facility] Last Admin: 06/29/17 20:44 Dose: 200 mls/hr Losartan Potassium (Cozaar Tab*) 50 mg PO DAILY [facility] Last Admin: 06/30/17 08:09 Dose: 50 mg Vital Signs 06/29/17 06/29/17 06/30/17 15:24 20:00 00:47 Temperature 97.6 F 98.6 F Pulse Rate 77 79 Respiratory 18 16 16 Rate Blood Pressure 122/53 188/64 (mmHg) O2 Sat by Pulse 96 96 Oximetry 06/30/17 06/30/17 00:57 08:00 Temperature 98.7 F Pulse Rate 80 Respiratory 20 18 Rate Blood Pressure 154/67 (mmHg) O2 Sat by Pulse 95 Oximetry Oxygen Devices in Use Now: None Appearance: 77 yo F in NAD, AAOx3 Eyes: No Scleral Icterus, PERRLA Ears/Nose/Mouth/Throat: NL Teeth, Lips, Gums, Mucous Membranes Moist Neck: NL Appearance and Movements; NL JVP, Trachea Midline Respiratory: Symmetrical Chest Expansion and Respiratory Effort Cardiovascular: NL Sounds; No Murmurs; No JVD, - - 3/6 murmur at the apex Abdominal: NL Sounds; No Tenderness; No Distention, No Hepatosplenomegaly Lymphatic: No Cervical Adenopathy Skin: - - R wrist in post op dressings-not removed Neurological: Alert and Oriented x 3, - - left sided weakness-chronic Result Diagrams: 06/30/17 09:43 06/29/17 05:04 Additional Lab and Data: Lab Results 06/27/17 06/27/17 06/27/17 Range/Units 19:15 19:15 19:15 WBC (3.5-10.8) 10^3/ul RBC (4.0-5.4) 10^6/ul Hgb (12.0-16.0) g/dl Hct (35-47) % MCV (80-97) fL MCH (27-31) pg MCHC (31-36) g/dl RDW (10.5-15) % Plt Count (150-450) 10^3/ul MPV (7.4-10.4) um3 Neut % (Auto) (38-83) % Lymph % (Auto) (25-47) % [place] % (Auto) (1-9) % Eos % (Auto) (0-6) % Baso % (Auto) (0-2) % Absolute Neuts (auto) (1.5-7.7) 10^3/ul Absolute Lymphs (auto) (1.0-4.8) 10^3/ul Absolute Monos (auto) (0-0.8) 10^3/ul Absolute Eos (auto) (0-0.6) 10^3/ul Absolute Basos (auto) (0-0.2) 10^3/ul Absolute Nucleated RBC 10^3/ul Nucleated RBC % INR (Anticoag Therapy) 1.14 H (0.89-1.11) APTT 21.3 L (26.0-36.3) seconds Sodium 135 (133-145) mmol/L Potassium 4.1 (3.5-5.0) mmol/L Chloride 101 (101-111) mmol/L Carbon Dioxide 26 (22-32) mmol/L Anion Gap 8 (2-11) mmol/L BUN 18 (6-24) mg/dL Creatinine 0.64 (0.51-0.95) mg/dL Est GFR ( Amer) 115.4 (>60) Est GFR (Non-Af Amer) 89.7 (>60) BUN/Creatinine Ratio 28.1 H (8-20) Glucose 110 H (70-100) mg/dL Lactic Acid (0.5-2.0) mmol/L Calcium 9.6 (8.6-10.3) mg/dL Magnesium 1.8 L (1.9-2.7) mg/dL Total Bilirubin 0.70 (0.2-1.0) mg/dL AST 11 L (13-39) U/L ALT 10 (7-52) U/L Alkaline Phosphatase 84 (34-104) U/L Troponin I 0.04 H* (<0.04) ng/mL C-Reactive Protein 127.62 H (< 5.00) mg/L B-Natriuretic Peptide 352 H ( - 100) pg/mL Total Protein 7.3 (6.4-8.9) g/dL Albumin 3.7 (3.2-5.2) g/dL Globulin 3.6 (2-4) g/dL Albumin/Globulin Ratio 1.0 (1-3) TSH 0.91 (0.34-5.60) mcIU/mL Urine Color Urine Appearance Urine pH (5-9) Ur Specific [place] (1.010-1.030) Urine Protein (Negative) Urine Ketones (Negative) Urine Blood (Negative) Urine Nitrate (Negative) Urine Bilirubin (Negative) Urine Urobilinogen (Negative) Ur Leukocyte Esterase (Negative) Urine WBC (Auto) (Absent) Urine RBC (Auto) (Absent) Ur Squamous Epith Cells (Absent) Urine Bacteria (Absent) Urine Glucose (Negative) Influenza A (Rapid) (Negative) Influenza B (Rapid) (Negative) 06/27/17 06/27/17 06/27/17 Range/Units 19:15 19:15 19:36 WBC 10.8 (3.5-10.8) 10^3/ul RBC 3.99 L (4.0-5.4) 10^6/ul Hgb 11.0 L (12.0-16.0) g/dl Hct 33 L (35-47) % MCV 82 (80-97) fL MCH 28 (27-31) pg MCHC 34 (31-36) g/dl RDW 14 (10.5-15) % Plt Count 427 (150-450) 10^3/ul MPV 6 L (7.4-10.4) um3 Neut % (Auto) 78.6 (38-83) % Lymph % (Auto) 12.0 L (25-47) % [place] % (Auto) 7.4 (1-9) % Eos % (Auto) 1.5 (0-6) % Baso % (Auto) 0.5 (0-2) % Absolute Neuts (auto) 8.5 H (1.5-7.7) 10^3/ul Absolute Lymphs (auto) 1.3 (1.0-4.8) 10^3/ul Absolute Monos (auto) 0.8 (0-0.8) 10^3/ul Absolute Eos (auto) 0.2 (0-0.6) 10^3/ul Absolute Basos (auto) 0 (0-0.2) 10^3/ul Absolute Nucleated RBC 0.02 10^3/ul Nucleated RBC % 0.1 INR (Anticoag Therapy) (0.89-1.11) APTT (26.0-36.3) seconds Sodium (133-145) mmol/L Potassium (3.5-5.0) mmol/L Chloride (101-111) mmol/L Carbon Dioxide (22-32) mmol/L Anion Gap (2-11) mmol/L BUN (6-24) mg/dL Creatinine (0.51-0.95) mg/dL Est GFR ( Amer) (>60) Est GFR (Non-Af Amer) (>60) BUN/Creatinine Ratio (8-20) Glucose (70-100) mg/dL Lactic Acid 0.7 (0.5-2.0) mmol/L Calcium (8.6-10.3) mg/dL Magnesium (1.9-2.7) mg/dL Total Bilirubin (0.2-1.0) mg/dL AST (13-39) U/L ALT (7-52) U/L Alkaline Phosphatase (34-104) U/L Troponin I (<0.04) ng/mL C-Reactive Protein (< 5.00) mg/L B-Natriuretic Peptide ( - 100) pg/mL Total Protein (6.4-8.9) g/dL Albumin (3.2-5.2) g/dL Globulin (2-4) g/dL Albumin/Globulin Ratio (1-3) TSH (0.34-5.60) mcIU/mL Urine Color Urine Appearance Urine pH (5-9) Ur Specific [place] (1.010-1.030) Urine Protein (Negative) Urine Ketones (Negative) Urine Blood (Negative) Urine Nitrate (Negative) Urine Bilirubin (Negative) Urine Urobilinogen (Negative) Ur Leukocyte Esterase (Negative) Urine WBC (Auto) (Absent) Urine RBC (Auto) (Absent) Ur Squamous Epith Cells (Absent) Urine Bacteria (Absent) Urine Glucose (Negative) Influenza A (Rapid) Negative (Negative) Influenza B (Rapid) Negative (Negative) 06/27/17 Range/Units 20:00 WBC (3.5-10.8) 10^3/ul RBC (4.0-5.4) 10^6/ul Hgb (12.0-16.0) g/dl Hct (35-47) % MCV (80-97) fL MCH (27-31) pg MCHC (31-36) g/dl RDW (10.5-15) % Plt Count (150-450) 10^3/ul MPV (7.4-10.4) um3 Neut % (Auto) (38-83) % Lymph % (Auto) (25-47) % [place] % (Auto) (1-9) % Eos % (Auto) (0-6) % Baso % (Auto) (0-2) % Absolute Neuts (auto) (1.5-7.7) 10^3/ul Absolute Lymphs (auto) (1.0-4.8) 10^3/ul Absolute Monos (auto) (0-0.8) 10^3/ul Absolute Eos (auto) (0-0.6) 10^3/ul Absolute Basos (auto) (0-0.2) 10^3/ul Absolute Nucleated RBC 10^3/ul Nucleated RBC % INR (Anticoag Therapy) (0.89-1.11) APTT (26.0-36.3) seconds Sodium (133-145) mmol/L Potassium (3.5-5.0) mmol/L Chloride (101-111) mmol/L Carbon Dioxide (22-32) mmol/L Anion Gap (2-11) mmol/L BUN (6-24) mg/dL Creatinine (0.51-0.95) mg/dL Est GFR ( Amer) (>60) Est GFR (Non-Af Amer) (>60) BUN/Creatinine Ratio (8-20) Glucose (70-100) mg/dL Lactic Acid (0.5-2.0) mmol/L Calcium (8.6-10.3) mg/dL Magnesium (1.9-2.7) mg/dL Total Bilirubin (0.2-1.0) mg/dL AST (13-39) U/L ALT (7-52) U/L Alkaline Phosphatase (34-104) U/L Troponin I (<0.04) ng/mL C-Reactive Protein (< 5.00) mg/L B-Natriuretic Peptide ( - 100) pg/mL Total Protein (6.4-8.9) g/dL Albumin (3.2-5.2) g/dL Globulin (2-4) g/dL Albumin/Globulin Ratio (1-3) TSH (0.34-5.60) mcIU/mL Urine Color Yellow Urine Appearance Cloudy Urine pH 7.0 (5-9) Ur Specific [place] 1.019 (1.010-1.030) Urine Protein 1+(30 mg/dl) H (Negative) Urine Ketones Trace H (Negative) Urine Blood Negative (Negative) Urine Nitrate Positive H (Negative) Urine Bilirubin Negative (Negative) Urine Urobilinogen Positive H (Negative) Ur Leukocyte Esterase 3+ H (Negative) Urine WBC (Auto) 3+(>20/hpf) H (Absent) Urine RBC (Auto) 2+(6-10/hpf) H (Absent) Ur Squamous Epith Cells Present H (Absent) Urine Bacteria 1+ H (Absent) Urine Glucose Negative (Negative) Influenza A (Rapid) (Negative) Influenza B (Rapid) (Negative) Assess/Plan/Problems-Billing Assessment: 77 yo F with h/o chronic left sided weakness,mitral regurg, presents with generalized weakness and fever 2 days after R carpal tunnel release and was found to have UTI - Patient Problems (1) UTI (urinary tract infection) Comment: cont Ceftriaxone, urine cx + E. coli (2) HTN (hypertension) Comment: very labile. Appears to be high at night-suspect due to stress when being awaken? cont Atenolol/Losartan-will monitor and not change doses for now. (3) Left-sided weakness Comment: chronic, as a consequence of meningioma resection in the past (4) Carpal tunnel syndrome of right wrist Comment: s/p surgical correction by Dr. Liz on 06/25/17 Dr. Liz examined the wound on 06/29/17. Recommended f/u in office in one week for suture removal (5) Elevated troponin Comment: Trop max at 0.07-indeterminate Pt is asymptomatic from cardiac standpoint. Echo shows known mod to severe MR. Pt is aware of the need to f/u with his home health clinical liaison at [place] (6) Left knee pain Comment: chronic, suspect due to OA. No abnormalities on exam, no effusion. XRays unremarkable Dopplers neg for DVT Recommended further ortho eval when f/u with Dr. Liz next week (7) DVT prophylaxis Comment: heparin sc Status and Disposition: inpatient, planned to go to [facility] tomorrow
[2017-06-30] MEDS: cefTRIAXone VIAL(*) 1,000 MG in NS 0.9% 50 ML* 50 ML IVPB SCH (20:57)
[2017-07-01] MEDS: Heparin VIAL(*) 5000 UNITS/ML VIAL (FIVE THOUSAND) SUBCUT SCH (05:53)
[2017-07-01] MEDS: Acetaminophen TAB* 325 MG PO PRN (07:58)
[2017-07-01] MEDS: Losartan TAB* 25 MG PO SCH (08:00)
[2017-07-01] MEDS: Atenolol TAB* 50 MG PO SCH (08:00)
[2017-07-01] MEDS: Aspirin EC Low Dose* 81 MG TAB.EC PO SCH (08:01)
[2017-07-01 08:09] VITALS: BP 144/68
--- NOTE | 2017-07-02 03:35 | DS ---
CC: Dr. Liz; Dr. Randhawa * DISCHARGE SUMMARY: DATE OF ADMISSION: 06/27/17 DATE OF DISCHARGE: 07/01/17 PRIMARY CARE PROVIDER: Dr. Randhawa. DISCHARGE DIAGNOSES: 1. Generalized weakness. The patient is status post right carpal tunnel release performed by Dr. Liz on 06/25/17. 2. Escherichia coli urinary tract infection. SECONDARY DIAGNOSES: 1. History of mitral valve regurgitation. 2. Hypertension. 3. History of bilateral lower extremity lymphedema. 4. History of chronic left-sided weakness subsequent to meningioma excision of the right frontal lobe remotely. 5. Status post right carpal tunnel release on 06/25/17. MEDICATIONS AT DISCHARGE: Unchanged from admission and include: 1. Multivitamin 1 tablet daily. 2. Acetaminophen on a p.r.n. basis. 3. Ascorbic acid 500 mg daily. 4. Aspirin 80 mg daily. 5. Atenolol 50 mg daily. 6. Vitamin B12 of 500 mcg daily. 7. Losartan potassium 50 mg daily. 8. [place]-3 fatty acids one capsule daily. 9. Policosanol 20 mg daily. 10. Vitamin E 400 mg units daily. LABORATORY DATA AND STUDIES: Performed during the hospital stay include: On , white blood cell count 8.3, hemoglobin 10.1, hematocrit 30, and platelets of 439. Sodium 135, potassium 4.0, chloride 104, carbon dioxide 23, BUN 18, creatinine 0.61. The patient's troponin peaked at 0.07 on 06/28/17. Transthoracic echocardiogram obtained on 06/29/17 showed [id number] concentric LVH. Basal interventricular septum shows moderate thickening. The EF was 60% to 65%. The global left ventricular wall motion contractility within normal limits. There was trace of aortic regurgitation and moderate-to- severe mitral regurgitation. The right ventricular systolic pressure is estimated at 46 mmHg. Left leg venous Doppler study showed limited evaluation of peroneal veins with definite DVT that was noted on 06/28/17. Also on 06/28/17, the patient's left knee x-ray showed, "[id number] osteoarthritis with chondrocalcinosis." CONSULTATIONS DURING THE HOSPITAL STAY: Included Dr. Liz from Orthopedic Surgery. MICROBIOLOGY STUDY: Showed over 100,000 colonies of E. coli in the urine. HOSPITALIZATION COURSE: Tania Turner is a 77-year-old female who has a history of chronic left-sided weakness due to meningioma excision in the remote past. The patient has history of bilateral carpal tunnel syndrome and underwent an elective outpatient carpal tunnel release on the right performed by Dr. Liz on 06/25/17. Subsequent to her surgery, she came into the hospital on 06/27/17 for evaluation of generalized weakness. The patient found out that once she had surgery on her right arm, she was not able to support herself with a walker due to chronic left-sided weakness. She also was noted to have urinary tract infection. Due to mildly elevated troponin with a peak number of 0.07, she was observed on telemetry monitored bed. Throughout her hospital stay she finished a 5-day course of IV antibiotics which was ceftriaxone for her UTI. She underwent physical therapy and occupational therapy evaluation and deemed to be a good candidate for inpatient rehabilitation at [facility] which was the facility that accepted her. Dr. Liz saw the patient in brief consultation postoperatively and noted that the patient's postoperative wounds are looking good and requested for the patient to be evaluated in her office for followup a week after discharge. During her hospital stay, the patient complained of left knee pain that had been ongoing for several months now. Doppler studies of the left lower extremity due to chronic edema as well as knee x-rays were obtained. It shows moderate osteoarthritis and I suspect the pain is due to moderate osteoarthritis. The patient is recommended to followup with Orthopedic Surgery in regards to that. The patient is going to be discharged to [facility] for further rehabilitation. PHYSICAL EXAMINATION: Vitals Signs: At the time of discharge. Blood pressure 144/68, heart rate of 72 and regular, respiratory rate 18, oxygen saturation 95 % on room air, temperature 98.5. General: This is a very pleasant 77-year-old female who is in no acute distress. Alert, wake and oriented x3. HEENT: Head is atraumatic, normocephalic. Eyes: Pupils equal and reactive to light and accommodation. Oropharynx clear. Mucosa moist. Neck: Supple. No bruit bilaterally. Cardiovascular: Regular rate and rhythm with 3/6 murmur on auscultation of the apex. Respiratory: Cleared to auscultation bilaterally. Abdomen: Soft, nontender. Bowel sounds present in all 4 quadrants. Extremities: There is bilateral leg edema, left more than right. There is no clubbing, no cyanosis. The patient also has venous stasis dermatitis on the left leg. Neuro Evaluation: Speech clear. Cranial nerves II through XII grossly intact. Motor strength is 4+/5 in left upper and left lower extremities. On evaluation of the patient's joints, the patient's right wrist is wrapped in a post-operative dressing that was not evaluated, apart from the surgical evaluation a day or so prior to the patient's discharge. At discharge the patient was recommended not to take surgical dressings until seen by Dr. Liz next week. The patient is to ambulate with roller walker and assistance as tolerated. Please note this is a short summary of the patient's hospital stay. Please refer to further medical records for details. TIME SPENT: Approximately 40 minutes was spent on the patient's discharge. [id number]/[facility] #: [id number] MTDD
== END 2017-07-01 14:09 | DRG 988 ==
LOC: ED 15:56 → MEDTELE 20:07 → OBSVTOIN 06-28 10:00
PROVIDERS: ADMIT Hospitalist; ATTEND Internal Medicine
PROC: 01N50ZZ Release Median Nerve, Open Approach (ICD-10-PCS; principal; 2017-06-25)
DX: N39.0 Urinary tract infection, site not specified (principal); I69.854 Hemiplegia and hemiparesis following other cerebrovascular disease affecting left non-dominant side; G62.9 Polyneuropathy, unspecified; I82.492 Acute embolism and thrombosis of other specified deep vein of left lower extremity; I51.7 Cardiomegaly; I10 Essential (primary) hypertension; I89.0 Lymphedema, not elsewhere classified; R74.8 Abnormal levels of other serum enzymes; M17.11 Unilateral primary osteoarthritis, right knee; F41.8 Other specified anxiety disorders; G89.29 Other chronic pain; M25.562 Pain in left knee; M11.262 Other chondrocalcinosis, left knee; R53.1 Weakness; B96.20 Unspecified Escherichia coli [E. coli] as the cause of diseases classified elsewhere; I08.0 Rheumatic disorders of both mitral and aortic valves; Z88.8 Allergy status to other drugs, medicaments and biological substances; Z91.040 Latex allergy status; Z82.3 Family history of stroke; Z82.49 Family history of ischemic heart disease and other diseases of the circulatory system; Z80.0 Family history of malignant neoplasm of digestive organs; Z83.3 Family history of diabetes mellitus; Z87.442 Personal history of urinary calculi; Z79.82 Long term (current) use of aspirin
CPT/HCPCS: 36415; 71010; 80048; 80053; 81003; 81015; 83605; 83735; 83880; 84443; 84484; 85025; 85610; 85730; 86140; 87040; 87077; 87086; 87186; 87502; 93005; 93306; A9270-GY; C8929; G0378; G8978-GP-CL; G8979-GP-CJ; G8987-GO-CL; G8988-GO-CI; J0360; J0696; J1644; J2704; J3010; J3475

== ENCOUNTER 2017-07-27 06:40 | Day surgery (SDC) | payer MEDICARE, MEDICAID ==
--- NOTE | 2017-07-16 07:26 | HP ---
PREOPERATIVE HISTORY AND PHYSICAL: DATE OF SURGERY/ADMISSION: 07/27/17 [facility] ATTENDING SURGEON: Bethanie Liz MD * (DICTATED BY ALIN AVILA) PROCEDURE: Left wrist carpal tunnel release. CHIEF COMPLAINT: Numbness and tingling, left hand. HISTORY OF PRESENT ILLNESS: This is a 77-year-old female who complains of numbness and tingling in her left hand for many, many years. She occasionally takes aspirin which is helpful, but it does not alleviate the symptoms and nearly everything is bothersome at this point. She has numbness in all fingers except the pinky. There was no injury that she recalls. After physical examination by Dr. Liz, she was diagnosed with left carpal tunnel syndrome. She recently underwent a right carpal tunnel release and has done very well with that. She would now like to proceed with a left carpal tunnel release. The patient does have some cardiac issues including left ventricular hypertrophy and mitral valve regurgitation. She received clearance from her propagation worker, Dr. Satish Durand, prior to her right carpal tunnel release less than a month ago. She has had no symptoms or change in her medical history. PAST MEDICAL HISTORY: 1. Left ventricular hypertrophy. 2. Mitral valve regurgitation. 3. Hypertension. 4. Lymphedema. PAST SURGICAL HISTORY: 1. Tonsillectomy. 2. Excision of meningioma from right frontal lobe in 1983, this left the patient with left-sided weakness. 3. D and C. CURRENT MEDICATIONS: 1. Atenolol 50 mg daily. 2. Losartan potassium 50 mg daily. 3. Multivitamin daily. 4. [place] oil. 5. Other vitamins. ALLERGIES: No known drug allergies. FAMILY HISTORY: Noncontributory. SOCIAL HISTORY: The patient lives at home alone. She denies tobacco use and recreational drug use. She drinks alcohol on rare occasion. REVIEW OF SYSTEMS: General: Negative for fevers, chills, or night sweats. No known anesthesia problems in the past. HEENT: Negative for headache, lightheadedness or syncopal episodes. Integumentary: Negative for abrasions, lesions, or open wounds. Cardiothoracic: Positive for hypertension and lymphedema. Negative for chest pain. Pulmonary: Negative for shortness of breath with exertion, chronic cough, COPD. GI: Negative for nausea, vomiting, diarrhea, constipation or GERD. : Negative for nocturia, urinary frequency, urgency, history of UTI's or kidney problems. Musculoskeletal: Positive for current complaint. Negative for chronic or intermittent back pain or history of fractures. Neurological: Positive for paresthesias in left hand. Negative for history of seizure, stroke, or epilepsy. Endocrine: Negative for diabetes or thyroid issues. Hematologic: Negative for easy bruising, anemia, excessive bleeding or history of DVT. Infectious Disease: Negative for history of MRSA, hepatitic C or HIV. PHYSICAL EXAMINATION GENERAL: Well-developed, well-nourished 77-year-old female in no acute distress. VITAL SIGNS: Height 5 feet tall, weight 160 pounds. Pulse rate 63, blood pressure 164/69. HEENT: Normocephalic, atraumatic. Pupils are equal, round, and reactive to light and accommodation. Extraocular movements are intact. Throat is clear. NECK: Supple. No palpable lymph nodes. PULMONARY: Lungs are clear to auscultation bilaterally. No wheezes, rales or rhonchi. CARDIOVASCULAR: Regular rate and rhythm. S1, S2. Murmur detected with auscultation. Mitral valve regurgitation. ABDOMEN: Positive bowel sounds. Soft, nontender. NEUROLOGICAL: Alert and oriented x3. Cranial nerves II through XII are intact. MUSCULOSKELETAL: On exam of her left hand, she has significant thenar waisting and she has marked weakness with thumb abduction. She has good range of motion of her fingers into a fist and good extension of the fingers. Wrist motion is slightly decreased. Sensation is decreased in the median nerve distribution of the left hand. She has a positive Tinel's sign at the wrist. IMPRESSION: Left carpal tunnel syndrome. PLAN: The patient is scheduled to undergo a left carpal tunnel release with Dr. Liz on 07/27/17. She will return to the office 10 to 14 days postop for followup and suture removal. A prescription for tramadol was e-scribed to the patient's pharmacy for postoperative pain management. ALIN AVILA [id number]/[facility] #: [id number] MTDMarla
[2017-07-27] MEDS ORDERED: Lidocaine 1% INJ* 10 MG/ML 30 ML SDV ONE (07:19)
[2017-07-27] MEDS ORDERED: fentaNYL* 50 MCG/ML 2 ML VIAL (100 MCG VIAL) ONE (07:57)
[2017-07-27] MEDS ORDERED: Midazolam* 1 MG/ML 2 ML VIAL (2 MG) ONE ×2 (07:57→08:10)
[2017-07-27 10:23] VITALS: BP 123/46
--- NOTE | 2017-07-28 01:00 | OP ---
DATE OF OPERATION: 07/27/17 [facility] DATE OF : 38 SURGEON: Bethanie Liz MD. COTTON SEED CULLER: ALIN Leiva. ANESTHESIOLOGIST: Dr. Garcia ANESTHESIA: Local MAC. PRE-OP DIAGNOSIS: Left carpal tunnel syndrome. POST-OP DIAGNOSIS: Left carpal tunnel syndrome. OPERATIVE PROCEDURE: Left carpal tunnel release. ESTIMATED BLOOD LOSS: Zero. TOURNIQUET TIME: 5 minutes. INDICATION FOR PROCEDURE: Tania is a 77-year-old female with bilateral carpal tunnel syndrome. She has had a right carpal tunnel release and her right hand is improving. She presents now for left carpal tunnel release. DESCRIPTION OF PROCEDURE: The patient was brought to the operating room, was given a sedation anesthetic, and a local infiltration of 10 cc of 1% plain lidocaine in the palm of her left hand. The skin of her left hand and forearm was prepped and draped in the usual sterile fashion. The hand and forearm were exsanguinated and the tourniquet elevated to 250 mmHg. A longitudinal incision was made in the palm in line with the ring finger. We dissected through the subcutaneous tissue down to the transverse carpal ligament. The ligament was divided sharply with a knife and then more proximally with the scissors. The nerve was dissected free from the surrounding tissue and there was an area of severe compression at the mid portion of the ligament. The wound was irrigated and the skin edges reapproximated with 4-0 nylon suture. The wound was dressed with Xeroform, 4x4, Webril, and an Darrel wrap. The patient was brought to the recovery room in good condition. [id number]/[facility] #: [id number] MTDD
== END 2017-07-27 09:10 | disposition home or self-care (01) ==
LOC: OREAST 06:40
PROVIDERS: ATTEND Orthopaedic Surgery
DX: G56.02 Carpal tunnel syndrome, left upper limb (principal); I11.9 Hypertensive heart disease without heart failure; I34.0 Nonrheumatic mitral (valve) insufficiency; Z88.1 Allergy status to other antibiotic agents
CPT/HCPCS: J2250; J3010

== ENCOUNTER 2017-12-15 12:33 | Emergency (ER) | payer MEDICARE, MEDICAID ==
[2017-12-15] MEDS ORDERED: Acetaminophen TAB* 325 MG PO ONE (13:12)
--- NOTE | 2017-12-15 13:56 | RAD ---
Indication: Right knee injury. 4 views of the right knee demonstrates chondrocalcinosis in the lateral compartment and medial compartment. No fracture is noted. No joint effusion is noted. IMPRESSION: Chondrocalcinosis of the menisci. No joint effusion is noted.
[2017-12-15 15:33] VITALS: BP 156/78
--- NOTE | 2017-12-15 20:24 | ED ---
Huma Gaffney Nilda, scribed for Jose Angel Carlos MD on 12/15/17 at 1358 . Lower Extremity - HPI Summary HPI Summary: This patient is a 77 year old F BIBA with a chief complaint of constant right knee pain s/p twisting knee while sitting in her wheel chair earlier today. The patient rates the pain 30/10 in initial severity. Pt now rates pain 8/10. Symptoms aggravated by movement. Symptoms mildly alleviated by rest and Tylenol taken CHEST PAIN COORDINATOR. - History of Current Complaint Chief Complaint: EDExtremityLower Stated Complaint: RT KNEE PAIN Time Seen by Provider: 12/15/17 12:49 Hx Obtained From: Patient Mechanism Of Injury: Twisted Onset of Pain: Immediate Onset/Duration: Still Present Severity Initially: Severe Severity Currently: Severe Pain Intensity: 8 Pain Scale Used: 0-10 Numeric Timing: Constant Location: Is Discrete @ - right knee Aggravating Factor(s): Movement Alleviating Factor(s): Rest, OTC Meds - tylenol - Allergies/Home Medications Allergies/Adverse Reactions: Allergies Allergy/AdvReac Type Severity Reaction Status Date / Time MS Lanolin [Lanolin] Allergy Rash Verified 07/27/17 06:59 MS Latex [Latex] Allergy Rash Verified 07/27/17 06:59 MS Quinolones [Quinolones] Allergy Unknown Verified 07/27/17 06:59 Reaction Details Home Medications: Home Medications Ascorbic Acid TAB* [Vitamin C TAB*] 500 mg PO DAILY 12/15/17 [History Confirmed 12/15/17] Losartan TAB* [Cozaar TAB*] 50 mg PO DAILY 12/15/17 [History Confirmed 12/15/17] Vitamin E CAP* 400 unit PO DAILY 12/15/17 [History Confirmed 12/15/17] PMH/Surg Hx/FS Hx/Imm Hx Endocrine/Hematology History: Reports: Hx Anticoagulant Therapy Denies: Hx Diabetes, Hx Thyroid Disease Cardiovascular History: Reports: Hx Hypertension, Hx Valvular Heart Disease - mitral valve regurg, Other Cardiovascular Problems/Disorders - left ventricular hypertrophy Denies: Hx Pacemaker/ICD Respiratory History: Denies: Hx Asthma, Hx Chronic Obstructive Pulmonary Disease (COPD), Other Respiratory Problems/Disorders GI History: Denies: Hx Ulcer, Other GI Disorders History: Reports: Hx Kidney Stones - several years ago Denies: Hx Renal Disease, Other Problems/Disorders Musculoskeletal History: Reports: Hx Arthritis - right knee, Hx Tendonitis - arm and shoulder Denies: Other Musculoskeletal History Sensory History: Reports: Hx Contacts or Glasses - glasses Denies: Hx Cataracts, Hx Hearing Aid Opthamlomology History: Reports: Hx Contacts or Glasses - glasses Denies: Hx Cataracts Neurological History: Reports: Hx Nerve Disease - peripheral neuropathy Denies: Hx Dementia, Hx Seizures, Other Neuro Impairments/Disorders Psychiatric History: Reports: Hx Anxiety - hypochondriac, worrier Denies: Hx Panic Disorder, Hx Substance Abuse - Surgical History Surgery Procedure, Year, and Place: CRANIOTOMY -meningioma removal 1983,. tonsils. Lt [facility] Hx Anesthesia Reactions: No Infectious Disease History: No Infectious Disease History: Denies: Hx Clostridium Difficile, Hx Hepatitis, Hx Human Immunodeficiency Virus (HIV), Hx of Known/Suspected MRSA, Hx Shingles, Hx Tuberculosis, Hx Known/ Suspected VRE, Hx Known/Suspected VRSA, History Other Infectious Disease, Traveled Outside the [place] in Last 30 Days - Family History Known Family History: Positive: Hypertension, Diabetes Family History: heart murmur - Social History Alcohol Use: None Hx Substance Use: No Substance Use Type: Reports: None Hx Tobacco Use: No Smoking Status (MU): Never Smoked Tobacco Review of Systems Negative: Fever Positive: Other - right knee pain s/p twisting knee All Other Systems Reviewed And Are Negative: Yes Physical Exam - Summary Physical Exam Summary: Appearance: The patient is well-nourished in no acute distress and in no acute pain. Skin: The skin is warm and dry and skin color reflects adequate perfusion. HEENT: The head is normocephalic and atraumatic. The pupils are equal and reactive. The conjunctivae are clear and without drainage. Nares are patent and without drainage. Mouth reveals moist mucous membranes and the throat is without erythema and exudate. The external ears are intact. The ear canals are patent and without drainage. The tympanic membranes are intact. Neck: the neck is supple with full range of motion and non-tender. There are no carotid bruits. There is no neck vein distension. Respiratory: Chest is non-tender. Lungs are clear to auscultation and breath sounds are symmetrical and equal. Cardiovascular: Heart is regular rate and rhythm. There is no murmur or rub auscultated. There is no peripheral edema and pulses are symmetrical and equal. Abdomen: The abdomen is soft and non-tender. There are normal bowel sounds heard in all four quadrants and there is no organomegaly palpated. Musculoskeletal: There is no back tenderness noted. There is good capillary refill. There is no peripheral edema or calf tenderness elicited. Right knee tender to ROM, not tender to palpation. Neurological: Patient is alert and oriented to person, place and time. The patient has symmetrical motor strength in all four extremities. Cranial nerves are grossly intact. Deep tendon reflexes are symmetrical and equal in all four extremities. Psychiatric: The patient has an appropriate affect and does not exhibit any anxiety or depression. Triage Information Reviewed: Yes Vital Signs On Initial Exam: Initial Vitals Temp Pulse Resp BP Pulse Ox 98.4 F 58 18 174/76 98 12/15/17 13:11 12/15/17 13:11 12/15/17 13:11 12/15/17 13:11 12/15/17 13:11 Vital Signs Reviewed: Yes Diagnostics - Vital Signs Vital Signs Temp Pulse Resp BP Pulse Ox 12/15/17 13:11 98.4 F 58 18 174/76 98 - Laboratory Lab Statement: Any lab studies that have been ordered have been reviewed, and results considered in the medical decision making process. - Radiology Knee XR Radiology Interpretation Completed By: Radiologist - Chondrocalcinosis of the menisci. No joint effusion is noted. Dr. Carlos has reviewed this report. Re-Evaluation - Re-Evaluation First Eval Re-Evaluation Time: 14:06 Comment: Reviewed imaging with pt as well as D/C plan. Lower Extremity Course/Dx - Course Course Of Treatment: Ms. Boswell twisted her knee in her WC. She had tenderness to ROM which improved with tylenol which is all she would take. He x-ray showed only DJD. She was able to ambulate with an anny wrap and a walker. - Diagnoses Provider Diagnoses: Right knee sprain Discharge - Sign-Out/Discharge Documenting (check all that apply): Discharge - home - Discharge Plan Condition: Stable Disposition: HOME Patient Education Materials: Knee Sprain (ED) Referrals: Cristina Randhawa MD [Primary Care Provider] - 2 Days Bethanie Liz MD [Medical Doctor] - Additional Instructions: Follow up with ortho if not improved. Tylenol as needed for pain. RETURN TO THE EMERGENCY DEPARTMENT FOR CHANGING OR WORSENING SYMPTOMS. - Rejiing Disposition and Condition Condition: STABLE Disposition: HOME The documentation as recorded by the Huma haider Nilda accurately reflects the service I personally performed and the decisions made by me, Jose Angel Carlos MD.
== END 2017-12-15 15:32 | disposition home or self-care (01) ==
LOC: ED 12:33
DX: S83.91XA Sprain of unspecified site of right knee, initial encounter (principal); Z79.01 Long term (current) use of anticoagulants; I10 Essential (primary) hypertension; I34.0 Nonrheumatic mitral (valve) insufficiency; X50.1XXA Overexertion from prolonged static or awkward postures, initial encounter; Y92.9 Unspecified place or not applicable
CPT/HCPCS: 99282; A9270-GY

== ENCOUNTER 2018-10-23 00:42 | Observation (INO) | payer MEDICARE, MEDICAID ==
[2018-10-23] MEDS ORDERED: NS 0.9% 1000 ML** 1,000 ML IV ONE (00:53)
[2018-10-23] MEDS ORDERED: Morphine VIAL* 4 MG/ML VIAL (1 ml vial) IV ONE ×2 (00:54→05:03)
[2018-10-23] MEDS ORDERED: LORazepam INJ* 2 MG/ML 1 ML VIAL IV PUSH ONE (00:54)
--- NOTE | 2018-10-23 00:58 | ED ---
Lower Extremity - HPI Summary HPI Summary: Patient is a 78 y/o F presenting to ED via EMS with complaints of upper left thigh pain, erythema of left acevedo. Patient reports that Sx onset a couple of weeks ago, states that she went to see a provider who just gave her an anny bandage for the erythema. Pain has progressively worsened since onset to the point that "I was unsure if I could make it from my bedroom to my kitchen". Patient states that she is unable to ambulate at present but can do so at baseline. She notes occasional left hip pain and intermittent spasms of the left leg as well. Patient claims that the erythema of her left acevedo is chronic and notes no pain at this area. PSHx of right meningioma removal, patient notes left sided weakness since. No fevers, no chest pain, no SOB, no N/V. 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 No allergy to contrast dye reported. No Hx of blood clot in left leg, patient is not on blood thinners or muscle relaxants, does not smoke or drink alc. On triage, pain is rated 9/10. Home medications and allergies are reviewed. - History of Current Complaint Stated Complaint: LEG PAIN Time Seen by Provider: 10/23/18 00:43 Hx Obtained From: Patient Mechanism Of Injury: Other - no injury reported Onset of Pain: Prior to Arrival - a couple of weeks ago Onset/Duration: Weeks - a couple of weeks ago Severity Initially: Mild Severity Currently: Severe Pain Intensity: 9 Pain Scale Used: 0-10 Numeric - 9/10 Timing: Constant, Lasting Weeks - a couple of weeks Location: Is Discrete @ - left upper thigh Character Of Pain: Spasmodic Associated Signs And Symptoms: Positive: Other - occasional left hip pain and intermittent spasms of the left leg No fevers, no chest pain, no SOB, no N/V Aggravating Factor(s): Ambulation Alleviating Factor(s): Nothing - Allergies/Home Medications Allergies/Adverse Reactions: Allergies Allergy/AdvReac Type Severity Reaction Status Date / Time MS Lanolin [Lanolin] Allergy Rash Verified 07/27/17 06:59 MS Latex [Latex] Allergy Rash Verified 07/27/17 06:59 MS Quinolones [Quinolones] Allergy Unknown Verified 07/27/17 06:59 Reaction Details Home Medications: Home Medications Folic Acid 1 tab PO DAILY 10/23/18 [History Confirmed 10/23/18] Multivitamin [One Daily Essential] 1 each PO DAILY 10/23/18 [History Confirmed 10/23/18] PMH/Surg Hx/FS Hx/Imm Hx Endocrine/Hematology History: Reports: Hx Anticoagulant Therapy Denies: Hx Diabetes, Hx Thyroid Disease Cardiovascular History: Reports: Hx Hypertension, Hx Valvular Heart Disease - mitral valve regurg, Other Cardiovascular Problems/Disorders - left ventricular hypertrophy Denies: Hx Pacemaker/ICD Respiratory History: Denies: Hx Asthma, Hx Chronic Obstructive Pulmonary Disease (COPD), Other Respiratory Problems/Disorders GI History: Denies: Hx Ulcer, Other GI Disorders History: Reports: Hx Kidney Stones - several years ago Denies: Hx Renal Disease, Other Problems/Disorders Musculoskeletal History: Reports: Hx Arthritis - right knee, Hx Tendonitis - arm and shoulder Denies: Other Musculoskeletal History Sensory History: Reports: Hx Contacts or Glasses - glasses Denies: Hx Cataracts, Hx Hearing Aid Opthamlomology History: Reports: Hx Contacts or Glasses - glasses Denies: Hx Cataracts Neurological History: Reports: Hx Nerve Disease - peripheral neuropathy Denies: Hx Dementia, Hx Seizures, Other Neuro Impairments/Disorders Psychiatric History: Reports: Hx Anxiety - hypochondriac, worrier Denies: Hx Panic Disorder, Hx Substance Abuse - Surgical History Surgery Procedure, Year, and Place: CRANIOTOMY -meningioma removal 1983,. tonsils. Lt [facility] Hx Anesthesia Reactions: No Infectious Disease History: Denies: Hx Clostridium Difficile, Hx Hepatitis, Hx Human Immunodeficiency Virus (HIV), Hx of Known/Suspected MRSA, Hx Shingles, Hx Tuberculosis, Hx Known/ Suspected VRE, Hx Known/Suspected VRSA, History Other Infectious Disease - Family History Known Family History: Positive: Hypertension, Diabetes Family History: heart murmur - Social History Alcohol Use: None Hx Substance Use: No Substance Use Type: Reports: None Hx Tobacco Use: No Smoking Status (MU): Never Smoked Tobacco Review of Systems Negative: Fever Negative: Chest Pain Negative: Shortness Of Breath Negative: Vomiting, Nausea Musculoskeletal: Other - POSITIVE - UPPER LEFT THIGH PAIN WITH INTERMITTENT SPASMS AND PAIN AT LEFT HIP Skin: Other - POSITIVE - ERYTHEMA OF LEFT ACEVEDO All Other Systems Reviewed And Are Negative: Yes Physical Exam - Summary Physical Exam Summary: Appearance: Well appearing Skin: warm, dry, reflects adequate perfusion; erythema of left anterior acevedo, weeping of clear fluid, leg is pink and warm throughout Head/face: normal Eyes: EOMI, FRANSICO ENT: mucous membranes moist Neck: supple, non-tender Respiratory: CTA, breath sounds present Cardiovascular: RRR, pulses symmetrical Abdomen: non-tender, soft Bowel Sounds: present Musculoskeletal: normal, strength/ROM intact; 2+ RLE edema, 3+ LLE edema, intermittent spasms of the left quadriceps muscle; difficulty to feel pulses in foot due to edema Neuro: normal, sensory motor intact, A&Ox3 Triage Information Reviewed: Yes Vital Signs On Initial Exam: Initial Vitals Temp Pulse Resp BP Pulse Ox 98.4 F 76 20 181/96 94 10/23/18 00:51 10/23/18 00:51 10/23/18 00:51 10/23/18 00:51 10/23/18 00:51 Vital Signs Reviewed: Yes Diagnostics - Laboratory Result Diagrams: 10/23/18 01:05 10/23/18 01:05 Lab Statement: Any lab studies that have been ordered have been reviewed, and results considered in the medical decision making process. - CT left lower extremity ct CT Interpretation Completed By: Radiologist Summary of CT Findings: IMPRESSION: 1. Trace left knee joint effusion. 2. Subcutaneous edema of the distal left lower extremity beginning at the level. of the knee with increasing induration and subcutaneous confluence toward the. ankle and into the foot. Findings may reflect cellulitis or possibly lymphatic. or venous stasis. This report was reviewed by ED physician. LUMBAR SPINE CT CT Interpretation Completed By: Radiologist Summary of CT Findings: IMPRESSION: 1. There has been little change from 2016. 2. Multilevel degenerative disc changes with some facet arthropathy and varying. degrees of spinal and neural foraminal stenosis. THIS REPORT WAS REVIEWED BY ED PHYSICIAN. - EKG 0140 Cardiac Rate: NL - rate of 77 BPM EKG Rhythm: Sinus Rhythm Summary of EKG Findings: EKG showed normal sinus rhythm with rate of 77 BPM, baseline artifact, non-specific ST. Re-Evaluation - Re-Evaluation First Eval Re-Evaluation Time: 03:45 Change: Improved Comment: Patient's pain is well controlled. Patient has no pain with palpitation but experiences radicular pain down her leg when sitting up. No issues with urination are noted. Lower Extremity Course/Dx - Course Course Of Treatment: Nurse's notes reviewed. The patient was having diffuse left lower extremity pain and muscle spasm. A CT scan was performed to evaluate for possibility of cellulitis or deeper abscess. There is no significant findings for this. She was having muscular spasm and pain with sitting up. Lumbar CT confirms multilevel degenerative disease. There appears to be radicular symptoms causing this presentation. She does have intact light touch sensation, saddle sensation. She has long-standing weakness in this leg from prior brain surgery. Her pain has been difficult to control aside from when she is laying flat. She will require admission, physical therapy, etc. She was given additional steroid, gabapentin and a Lidoderm patch an effort to control pain. Hospitalist will admit. - Diagnoses Differential Diagnosis/HQI/PQRI: Positive: Cellulitis, DVT, Fracture (Closed), Infection, Osteomyelitis, Other - Radiculopathy Provider Diagnoses: Lumbar radiculopathy, Pain of left lower extremity, Lymphedema - Physician Notifications Discussed Care Of Patient With: Cindy Grullon Time Discussed With Above Provider: 03:44 Instructed by Provider To: Other - 0344 - Patient's case was discussed with Dr. Gruloln, Dr. Grullon notes that patient's pain may be radicular. 0505 - Patient's case was discusse with Dr. Grullon, Dr. Grullon accepts for admission. - Critical Care Time Critical Care Time: 30-74 min - 30 minutes, CCT is EXCLUSIVE of separately billable procedures Discharge - Sign-Out/Discharge Documenting (check all that apply): Patient Departure - admit - Discharge Plan Condition: Fair Disposition: ADMITTED TO [facility] Referrals: Cristina Randhawa MD [Primary Care Provider] - - Billing Disposition and Condition Condition: FAIR Disposition: Admitted to [facility] - Attestation Statements Document Initiated by Scribe: Yes Documenting Scribe: NADJA ROUSE Provider For Whom Tung is Documenting (Include Credential): KAROLINE YANEZ MD Scribe Attestation: NADJA Gaffney , scribed for KAROLINE YANEZ MD on 10/23/18 at 0524. Scribe Documentation Reviewed: Yes Provider Attestation: The documentation as recorded by the NADJA haider accurately reflects the service I personally performed and the decisions made by me, KAROLINE YANEZ MD Status of Scribe Document: Viewed
[2018-10-23 01:18] LABS: INR 1.13 (0.77-1.02)
[2018-10-23 01:26] LABS: ABS Basophils 0 10^3/ul (0-0.2); ABS Eosinophils 0.2 10^3/ul (0-0.6); ABS Lymphocytes 1.7 10^3/ul (1.0-4.8); ABS Monocytes 0.7 10^3/ul (0-0.8); ABS Neutrophils 4.7 10^3/ul (1.5-7.7); ABS Nucleated RBC 0 10^3/ul; Eosinophil % 2.9 %; Hematocrit 35 % (35-47); Hemoglobin 11.8 g/dl (12.0-16.0); Lymphocyte % 23.5 %; Mean Corpuscular HGB Conc 34 g/dl (31-36); Mean Corpuscular Hemoglobin 27 pg (27-31); Mean Corpuscular Volume 80 fL (80-97); Mean Platelet Volume 6.7 fL (7.4-10.4); Nucleated Red Blood Cells % 0.1; Platelet Count 425 10^3/ul (150-450); Red Cell Distribution Width 14 % (10.5-15); White Blood Count 7.4 10^3/ul (3.5-10.8)
[2018-10-23 01:30] LABS: Albumin 3.9 g/dL (3.2-5.2); Albumin/Globulin Ratio 1.1 (1-3); BUN/Creatinine Ratio 34.2 (8-20); C Reactive Protein 35.87 mg/L (<8.01); Calcium 9.9 mg/dL (8.6-10.3); EGFR African American 84.9 (>60); EGFR Non-African American 70.2 (>60); Globulin 3.4 g/dL (2-4); Potassium 4.6 mmol/L (3.5-5.0); Total Bilirubin 0.4 mg/dL (0.2-1.0); Total Protein 7.3 g/dL (6.4-8.9)
--- NOTE | 2018-10-23 01:50 | ED ---
Back Pain - HPI Summary HPI Summary: Patient is a 78 y/o F presenting to ED via EMS with complaints of upper left thigh pain, erythema of left acevedo. Patient reports that Sx onset a couple of weeks ago, states that she went to see a provider who just gave her an anny bandage for the erythema. Pain has progressively worsened since onset to the point that "I was unsure if I could make it from my bedroom to my kitchen". Patient states that she is unable to ambulate at present but can do so at baseline. She notes occasional left hip pain and intermittent spasms of the left leg as well. Patient claims that the erythema of her left acevedo is chronic and notes no pain at this area. No fevers, no chest pain, no SOB, no N/V. 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 No allergy to contrast dye reported. No Hx of blood clot in left leg, patient is not on blood thinners or muscle relaxants, does not smoke or drink alc. On triage, pain is rated 9/10. Home medications and allergies are reviewed. - History of Current Complaint Chief Complaint: EDExtremityLower Stated Complaint: LEG PAIN Time Seen by Provider: 10/23/18 00:43 Hx Obtained From: Patient Timing: Constant, Lasting Weeks - a couple of weeks Severity Initially: Mild Severity Currently: Severe Pain Intensity: 9 Pain Scale Used: 0-10 Numeric - 9/10 - Allergies/Home Medications Allergies/Adverse Reactions: Allergies Allergy/AdvReac Type Severity Reaction Status Date / Time MS Lanolin [Lanolin] Allergy Rash Verified 07/27/17 06:59 MS Latex [Latex] Allergy Rash Verified 07/27/17 06:59 MS Quinolones [Quinolones] Allergy Unknown Verified 07/27/17 06:59 Reaction Details PMH/Surg Hx/FS Hx/Imm Hx Endocrine/Hematology History: Reports: Hx Anticoagulant Therapy Denies: Hx Diabetes, Hx Thyroid Disease Cardiovascular History: Reports: Hx Hypertension, Hx Valvular Heart Disease - mitral valve regurg, Other Cardiovascular Problems/Disorders - left ventricular hypertrophy Denies: Hx Pacemaker/ICD Respiratory History: Denies: Hx Asthma, Hx Chronic Obstructive Pulmonary Disease (COPD), Other Respiratory Problems/Disorders GI History: Denies: Hx Ulcer, Other GI Disorders History: Reports: Hx Kidney Stones - several years ago Denies: Hx Renal Disease, Other Problems/Disorders Musculoskeletal History: Reports: Hx Arthritis - right knee, Hx Tendonitis - arm and shoulder Denies: Other Musculoskeletal History Sensory History: Reports: Hx Contacts or Glasses - glasses Denies: Hx Cataracts, Hx Hearing Aid Opthamlomology History: Reports: Hx Contacts or Glasses - glasses Denies: Hx Cataracts Neurological History: Reports: Hx Nerve Disease - peripheral neuropathy Denies: Hx Dementia, Hx Seizures, Other Neuro Impairments/Disorders Psychiatric History: Reports: Hx Anxiety - hypochondriac, worrier Denies: Hx Panic Disorder, Hx Substance Abuse - Surgical History Surgery Procedure, Year, and Place: CRANIOTOMY -meningioma removal 1983,. tonsils. Lt [facility] Hx Anesthesia Reactions: No Infectious Disease History: No Infectious Disease History: Denies: Hx Clostridium Difficile, Hx Hepatitis, Hx Human Immunodeficiency Virus (HIV), Hx of Known/Suspected MRSA, Hx Shingles, Hx Tuberculosis, Hx Known/ Suspected VRE, Hx Known/Suspected VRSA, History Other Infectious Disease, Traveled Outside the [place] in Last 30 Days - Family History Known Family History: Positive: Hypertension, Diabetes Family History: heart murmur - Social History Alcohol Use: None Hx Substance Use: No Substance Use Type: Reports: None Hx Tobacco Use: No Smoking Status (MU): Never Smoked Tobacco Review of Systems Negative: Fever Negative: Chest Pain Negative: Shortness Of Breath Negative: Vomiting, Nausea Musculoskeletal: Other - POSITIVE - UPPER LEFT THIGH PAIN WITH INTERMITTENT SPASMS AND PAIN AT LEFT HIP Skin: Other - POSITIVE - ERYTHEMA OF LEFT ACEVEDO All Other Systems Reviewed And Are Negative: Yes Physical Exam - Summary Physical Exam Summary: Appearance: Well appearing Skin: warm, dry, reflects adequate perfusion; erythema of left anterior acevedo, weeping of clear fluid, leg is pink and warm throughout Head/face: normal Eyes: EOMI, FRANSICO ENT: mucous membranes moist Neck: supple, non-tender Respiratory: CTA, breath sounds present Cardiovascular: RRR, pulses symmetrical Abdomen: non-tender, soft Bowel Sounds: present Musculoskeletal: normal, strength/ROM intact; 2+ RLE edema, 3+ LLE edema, intermittent spasms of the left quadriceps muscle; difficulty to feel pulses in foot due to edema Neuro: normal, sensory motor intact, A&Ox3 Triage Information Reviewed: Yes Vital Signs On Initial Exam: Initial Vitals Temp Pulse Resp BP Pulse Ox 98.4 F 76 20 181/96 94 10/23/18 00:51 10/23/18 00:51 10/23/18 00:51 10/23/18 00:51 10/23/18 00:51 Vital Signs Reviewed: Yes Diagnostics - Vital Signs Vital Signs Temp Pulse Resp BP Pulse Ox 10/23/18 01:29 20 10/23/18 00:51 98.4 F 76 20 181/96 94 - Laboratory Lab Results: Lab Results 10/23/18 10/23/18 10/23/18 Range/Units 01:05 01:05 01:05 WBC 7.4 (3.5-10.8) 10^3/ul RBC 4.30 (4.00-5.40) 10^6/ul Hgb 11.8 L (12.0-16.0) g/dl Hct 35 (35-47) % MCV 80 (80-97) fL MCH 27 (27-31) pg MCHC 34 (31-36) g/dl RDW 14 (10.5-15) % Plt Count 425 (150-450) 10^3/ul MPV 6.7 L (7.4-10.4) fL Neut % (Auto) 64.1 % Lymph % (Auto) 23.5 % Hidalgo % (Auto) 8.9 % Eos % (Auto) 2.9 % Baso % (Auto) 0.6 % Absolute Neuts (auto) 4.7 (1.5-7.7) 10^3/ul Absolute Lymphs (auto) 1.7 (1.0-4.8) 10^3/ul Absolute Monos (auto) 0.7 (0-0.8) 10^3/ul Absolute Eos (auto) 0.2 (0-0.6) 10^3/ul Absolute Basos (auto) 0 (0-0.2) 10^3/ul Absolute Nucleated RBC 0 10^3/ul Nucleated RBC % 0.1 INR (Anticoag Therapy) 1.13 H (0.77-1.02) Sodium 136 (135-145) mmol/L Potassium 4.6 (3.5-5.0) mmol/L Chloride 102 (101-111) mmol/L Carbon Dioxide 27 (22-32) mmol/L Anion Gap 7 (2-11) mmol/L BUN 27 H (6-24) mg/dL Creatinine 0.79 (0.51-0.95) mg/dL Est GFR ( Amer) 84.9 (>60) Est GFR (Non-Af Amer) 70.2 (>60) BUN/Creatinine Ratio 34.2 H (8-20) Glucose 107 H (70-100) mg/dL Lactic Acid (0.5-2.0) mmol/L Calcium 9.9 (8.6-10.3) mg/dL Total Bilirubin 0.40 (0.2-1.0) mg/dL AST 14 (13-39) U/L ALT 11 (7-52) U/L Alkaline Phosphatase 115 H (34-104) U/L Troponin I 0.00 (<0.04) ng/mL C-Reactive Protein 35.87 H (<8.01) mg/L Total Protein 7.3 (6.4-8.9) g/dL Albumin 3.9 (3.2-5.2) g/dL Globulin 3.4 (2-4) g/dL Albumin/Globulin Ratio 1.1 (1-3) 10/23/18 Range/Units 01:05 WBC (3.5-10.8) 10^3/ul RBC (4.00-5.40) 10^6/ul Hgb (12.0-16.0) g/dl Hct (35-47) % MCV (80-97) fL MCH (27-31) pg MCHC (31-36) g/dl RDW (10.5-15) % Plt Count (150-450) 10^3/ul MPV (7.4-10.4) fL Neut % (Auto) % Lymph % (Auto) % Hidalgo % (Auto) % Eos % (Auto) % Baso % (Auto) % Absolute Neuts (auto) (1.5-7.7) 10^3/ul Absolute Lymphs (auto) (1.0-4.8) 10^3/ul Absolute Monos (auto) (0-0.8) 10^3/ul Absolute Eos (auto) (0-0.6) 10^3/ul Absolute Basos (auto) (0-0.2) 10^3/ul Absolute Nucleated RBC 10^3/ul Nucleated RBC % INR (Anticoag Therapy) (0.77-1.02) Sodium (135-145) mmol/L Potassium (3.5-5.0) mmol/L Chloride (101-111) mmol/L Carbon Dioxide (22-32) mmol/L Anion Gap (2-11) mmol/L BUN (6-24) mg/dL Creatinine (0.51-0.95) mg/dL Est GFR ( Amer) (>60) Est GFR (Non-Af Amer) (>60) BUN/Creatinine Ratio (8-20) Glucose (70-100) mg/dL Lactic Acid 0.6 (0.5-2.0) mmol/L Calcium (8.6-10.3) mg/dL Total Bilirubin (0.2-1.0) mg/dL AST (13-39) U/L ALT (7-52) U/L Alkaline Phosphatase (34-104) U/L Troponin I (<0.04) ng/mL C-Reactive Protein (<8.01) mg/L Total Protein (6.4-8.9) g/dL Albumin (3.2-5.2) g/dL Globulin (2-4) g/dL Albumin/Globulin Ratio (1-3) Result Diagrams: 10/23/18 01:05 10/23/18 01:05 Lab Statement: Any lab studies that have been ordered have been reviewed, and results considered in the medical decision making process. Discharge - Discharge Plan Referrals: Cristina Randhawa MD [Primary Care Provider] - - Attestation Statements Document Initiated by Scribe: Yes
[2018-10-23] MEDS ORDERED: Iohexol 350* (CONTRAST) 500 ML MDV IV ONE (01:51)
[2018-10-23 02:35] LABS: Urine Appearance Cloudy; Urine Bacteria 1+ (Absent); Urine Bilirubin Negative (Negative); Urine Blood Negative (Negative); Urine Color Yellow; Urine Glucose Negative (Negative); Urine Ketones Negative (Negative); Urine Nitrite Negative (Negative); Urine Protein Negative (Negative); Urine Red Blood Cell Absent (Absent); Urine Specific Gravity 1.012 (1.010-1.030); Urine Squamous Epithelial Cell Present (Absent); Urine Urobilinogen Negative (Negative); Urine White Blood Cell 2+(11-20/hpf) (Absent)
[2018-10-23] MEDS ORDERED: Dexamethasone IV* 4 MG/ML 1 ML (4 MG) IV SLOW PU ONE (03:51)
[2018-10-23] MEDS ORDERED: Lidocaine PATCH 5%* 1 PATCH TRANSDERM ONE (05:02)
[2018-10-23] MEDS ORDERED: Gabapentin CAP(*) 100 MG PO ONE (05:05)
[2018-10-23] MEDS ORDERED: Al Hydrox/Mg Hydrox/Simet LIQ* 30 ML UDC PO PRN (08:33)
[2018-10-23] MEDS ORDERED: oxyCODONE/Acetamin 5/325 MG* TAB PO PRN (08:33)
[2018-10-23] MEDS ORDERED: Ondansetron INJ* 2 MG/ML VIAL IV PRN (08:33)
[2018-10-23] MEDS ORDERED: Ketorolac INJ* 15 MG/ML 1 ML VIAL IV PUSH PRN (08:35)
[2018-10-23] MEDS ORDERED: ceFAZolin 1 GM ADVAN(*) 1 GM ADDV.VIAL IVPB ONE (10:14)
[2018-10-23] MEDS: Lidocaine PATCH 5%* 1 PATCH TRANSDERM SCH (10:17)
[2018-10-23] MEDS: ceFAZolin 1 GM ADVAN(*) 1 GM in NS 0.9% 50 ML* 50 ML IVPB SCH ×2 (10:18→17:52)
[2018-10-23] MEDS: Docusate CAP* 100 MG PO SCH ×2 (11:39→19:31)
[2018-10-23] MEDS: Senna TAB PO SCH ×2 (11:40→19:31)
[2018-10-23] MEDS: Atenolol TAB* 50 MG PO SCH (11:40)
[2018-10-23] MEDS: Prenatal Vitamin TAB PO SCH (11:40)
[2018-10-23] MEDS: ValACYclovir (*) 1 GM TAB PO SCH ×3 (11:40→21:46)
[2018-10-23] MEDS: Vitamin E CAP* 400 UNIT PO SCH (11:40)
[2018-10-23] MEDS: Losartan TAB* 25 MG PO SCH (11:43)
--- NOTE | 2018-10-23 12:01 | HP ---
CC: Cristina Randhawa MD * HISTORY AND PHYSICAL: DATE OF ADMISSION: 10/23/18 PRIMARY CARE PHYSICIAN: Cristina Randhawa MD TIME OF EVALUATION: 08 CHIEF COMPLAINT: Left upper leg pain. HISTORY OF PRESENT ILLNESS: This is a 78-year-old female with a remote history of erythema nodosum who presented to the emergency room with worsening left leg pain. Patient continues to fall asleep during my encounter as she was heavily sedated in the emergency room for the past 8 hours. She states she was having intermittent left lower leg pain. She picks at her lower leg, it is chronically red, but the pain really persisted in the left upper anterior thigh region and it got so significantly worse, she thought she was going to from the pain. She has no rash on her upper thigh. She states it feels similar to when she got erythema nodosum as a child, but the pain is very localized to her upper thigh. She intermittently gets pain in her lower leg and has chronically redness in her left lower leg. Patient denies any fevers, chills. No chest pain, no shortness of breath. She denies any falls. No changes in her medications. She was in her usual state of health up until this leg pain. Otherwise, review of systems is negative. In the emergency room, patient had labs, imaging. She was given 8 mg of Decadron, 100 mg of Neurontin, Lidoderm patch, 1 mg of Ativan, and a liter of fluid and referred to the hospitalist service for further evaluation. PAST MEDICAL HISTORY: 1. History of hypertension. 2. History of meningoma, status post resection with residual left-sided weakness. 3. History of erythema nodosum as a child. 4. History of arthritis. 5. History of mitral valve regurgitation. MEDICATIONS: 1. Folic acid 1 tab p.o. daily. 2. Vitamin E cap 400 units p.o. daily. 3. Multivitamin daily. 4. Losartan 50 mg p.o. daily. 5. Atenolol 50 mg daily. 6. Vitamin C 500 mg p.o. daily. ALLERGIES: LANOLIN, LATEX, QUINOLONES. FAMILY HISTORY: Reviewed, noncontributory. SOCIAL HISTORY: Patient lives alone. She ambulates with a walker and a wheelchair. She is independent of her ADLs. Her son does come and help her out a lot. Her healthcare proxies are her son, Rene, and her [id number]. No history of alcohol, tobacco, or illicit drug use. Code status is full code. REVIEW OF SYSTEMS: A 14-point review of systems as mentioned in the HPI, otherwise negative. PHYSICAL EXAMINATION GENERAL: No acute distress, sleeping, falling asleep frequently, but when awakes was alert and oriented. VITAL SIGNS: Temp 98.4, pulse rate 61, respiratory rate is 12, oxygen saturation 94% on room air, and blood pressure 142/58. HEENT: Head: Normocephalic. Pupils are dilated and reactive, anicteric. Oropharynx: Mucous membranes dry. NECK: Supple. No adenopathy. RESPIRATORY: Diminished breath sounds. No wheezes, rhonchi, or rales. CARDIAC: Regular rate and rhythm. Soft systolic murmur heard throughout. ABDOMEN: Positive bowel sounds, soft, nontender, nondistended. EXTREMITIES: Patient with left lower extremity edema. Her left lower leg anterior with erythema and some small scab wounds present. Pain is in her left upper thigh with no visible rashes, lesions, or trauma. +1 DPs bilaterally. NEUROLOGIC: Alert and oriented x3. No gross focal neurologic deficits. DERM: As mentioned in the extremities comment. LABORATORY DATA: White count 7.4, hemoglobin 11.8., hematocrit 35, platelets 425. INR is 1.13. Sodium 136, potassium 4.6, chloride 102, bicarb 27, BUN 27, creatinine 0.79, glucose 107. Lactic acid 0.6. CRP 35. Alk phos 115. RADIOGRAPHIC DATA: Lower extremity CT: Trace left knee joint effusion, subcutaneous edema of the distal left lower extremity beginning at the level of the knee with increasing induration and subcutaneous confluence toward the ankle and into the foot. Findings may reflect cellulitis with possible lymphatic or venous stasis. Lumbar spine CT: There has been a little change since 08/18/2017, multilevel degenerative disk changes with some facet arthropathy and varying degrees of spinal and neural foraminal stenosis. ASSESSMENT: This is a 78-year-old female with a past medical history of arthritis, remote history of erythema nodosum, presents to the emergency room with left anterior thigh pain. 1. Left lower anterior thigh pain. Assessment: She does have lower extremity edema on the left side. She does have a cellulitic region in her left lower extremity that she states is unchanged. On the differential is cellulitis, deep vein thrombosis. This could also be early herpes zoster with no rash yet developing. Not sure if this could be erythema nodosum as she has had this in the past. The biggest issue for this patient is pain control. She now seems to be oversedated. Plan: We will admit her for observation. We will check a Doppler. We will start her on cephazolin and Valtrex as well. If there is no rash in her upper leg, we will discontinue the Valtrex over the next 24 hours and continue with pain control. I am going to stop morphine, start her on oxycodone, continue the Lidoderm patch and Toradol and Tylenol for now as patient is oversedated; she may need more, but we will wait until this arises. Continue on a bowel regimen as well. We will order for PT consult to allow for safe discharge home as patient lives alone and she is a wheelchair/walker bound. 2. Chronic medical problems: Hypertension. Continue her atenolol and Cozaar. 3. FEN: Allow for regular diet. 4. DVT prophylaxis. The patient scores high risk. We will place her on heparin subcu t.i.d. 5. Code status. Full code. PATIENT TIME: Greater than 40 minutes spent doing the history and physical, more than half the time spent in direct patient contact. [id number]/CPS #: [id number] [place]
[2018-10-23] MEDS: Heparin VIAL(*) 5000 UNITS/ML VIAL (FIVE THOUSAND) SUBCUT SCH ×2 (14:55→21:46)
[2018-10-23] MEDS ORDERED: Lidocaine Patch REMOVE* 1 NOTE MISC PATCH OFF ONE (17:22)
[2018-10-23] MEDS: Lidocaine Patch REMOVE* 1 NOTE MISC SCH (19:37)
[2018-10-24] MEDS: ceFAZolin 1 GM ADVAN(*) 1 GM in NS 0.9% 50 ML* 50 ML IVPB SCH ×3 (02:19→18:05)
[2018-10-24] MEDS: ValACYclovir (*) 1 GM TAB PO SCH ×2 (05:41→14:14)
[2018-10-24] MEDS: Heparin VIAL(*) 5000 UNITS/ML VIAL (FIVE THOUSAND) SUBCUT SCH ×3 (05:43→22:22)
[2018-10-24] MEDS: Senna TAB PO SCH ×2 (08:59→22:23)
[2018-10-24] MEDS: Losartan TAB* 25 MG PO SCH (08:59)
[2018-10-24] MEDS: Lidocaine PATCH 5%* 1 PATCH TRANSDERM SCH (08:59)
[2018-10-24] MEDS: Docusate CAP* 100 MG PO SCH ×2 (08:59→22:22)
[2018-10-24] MEDS: Atenolol TAB* 50 MG PO SCH (08:59)
[2018-10-24] MEDS: Vitamin E CAP* 400 UNIT PO SCH (09:26)
[2018-10-24] MEDS: Prenatal Vitamin TAB PO SCH (09:26)
[2018-10-24] MEDS: Acetaminophen TAB* 325 MG PO PRN ×3 (10:56→22:21)
[2018-10-24] MEDS ORDERED: Prenatal Vitamin TAB PO SCH (12:00)
[2018-10-24] MEDS ORDERED: Vitamin E CAP* 400 UNIT PO SCH (12:00)
--- NOTE | 2018-10-24 12:07 | PN ---
Subjective Date of Service: 10/24/18 Interval History: Patient reports her left thigh is feeling better today with the lidocaine patch in place but still has some discomfort. She reports left knee osteoarthritis in which she thinks maybe this is causing her thigh pain - she reports steroid injection last year into left knee which helped dramatically. no noted rash on leg. No fevers or chills. Feels better today with less pain when ambulating. Objective Active Medications: Acetaminophen (Tylenol Tab*) 650 mg PO Q4H PRN PRN Reason: FEVER/PAIN Last Admin: 10/24/18 10:56 Dose: 650 mg Al Hydrox/Mg Hydrox/Simethicone (Maalox Plus*) 30 ml PO Q6H PRN PRN Reason: INDIGESTION Atenolol (Tenormin Tab*) 50 mg PO DAILY [facility] Last Admin: 10/24/18 08:59 Dose: 50 mg Docusate Sodium (Colace Cap*) 100 mg PO BID [facility] Last Admin: 10/24/18 08:59 Dose: Not Given Heparin Sodium (Porcine) (Heparin Vial(*)) 5,000 units SUBCUT Q8HR [facility] Last Admin: 10/24/18 05:43 Dose: 5,000 units Cefazolin Sodium 1 gm/ Sodium (Chloride) 50 mls @ 200 mls/hr IVPB Q8H [facility] Last Admin: 10/24/18 10:56 Dose: 200 mls/hr Ketorolac Tromethamine (Toradol Inj*) 15 mg IV PUSH Q6H PRN PRN Reason: PAIN Lidocaine (Lidoderm 5% Patch*) 1 patch TRANSDERM DAILY [facility] Last Admin: 10/24/18 08:59 Dose: 1 patch Losartan Potassium (Cozaar Tab*) 50 mg PO DAILY [facility] Last Admin: 10/24/18 08:59 Dose: 50 mg Multivitamins ( Vitamin Tab*) 1 tab PO DAILY@1200 [facility] Ondansetron HCl (Zofran Inj*) 4 mg IV Q4H PRN PRN Reason: NAUSEA/VOMITING Oxycodone/Acetaminophen (Percocet 5/325 Tab*) 1 tab PO Q4H PRN PRN Reason: Pain Pharmacy Profile Note (Lidocaine Patch Remove*) 1 note N/A 2100 [facility] Last Admin: 10/23/18 19:37 Dose: Not Given Senna (Senokot Tab*) 1 tab PO BID [facility] Last Admin: 10/24/18 08:59 Dose: Not Given Valacyclovir HCl (Valtrex 1 Gm(*)) 1 gm PO Q8HR [facility]; Protocol Last Admin: 10/24/18 05:41 Dose: 1 gm Vitamin E (Vitamin E Cap*) 400 unit PO DAILY@1200 [facility] Vital Signs - 8 hr 10/24/18 10/24/18 04:12 07:37 Temperature 98.1 F 98.3 F Pulse Rate 75 75 Respiratory 16 16 Rate Blood Pressure 140/53 149/60 (mmHg) O2 Sat by Pulse 95 94 Oximetry Oxygen Devices in Use Now: None Appearance: well developed 78 yo female sitting up in bed A+O x3 in NAD Eyes: No Scleral Icterus, PERRLA Ears/Nose/Mouth/Throat: Mucous Membranes Moist Neck: NL Appearance and Movements; NL JVP Respiratory: Symmetrical Chest Expansion and Respiratory Effort, Clear to Auscultation Cardiovascular: NL Sounds; No Murmurs; No JVD, RRR, No Edema Abdominal: NL Sounds; No Tenderness; No Distention Extremities: No Clubbing, Cyanosis, - - left knee and thigh have trace edema. no tenderness, no erythema Skin: No Rash or Ulcers, No Nodules or Sclerosis Neurological: Alert and Oriented x 3, NL Sensation, NL Muscle Strength and Tone Lines/Tubes/Other Access: Clean, Dry and Intact Peripheral IV Nutrition: Taking PO's Result Diagrams: 10/23/18 01:05 10/23/18 01:05 Microbiology and Other Data: Microbiology 10/23/18 02:05 Urine Culture - Preliminary Urine Escherichia Coli 10/23/18 02:06 Aerobic Blood Culture - Preliminary Blood Venous No Growth Day 1 Anaerobic Blood Culture - Preliminary No Growth Day 1 10/23/18 00:59 Aerobic Blood Culture - Preliminary Blood Venous No Growth Day 1 Anaerobic Blood Culture - Preliminary No Growth Day 1 Assess/Plan/Problems-Billing Assessment: the 78 yo female with PMH of arthritis, remote hx of erythema nodosum presents to the ER with anterior thigh pain - Patient Problems (1) Thigh pain Comment: - pain much better - there is mild noted edema above knee -> generalized thigh. warm/pink. This initially seemed to start with knee pain, known osteroarthritis in that knee which she has had a return in pain over the prior week (had steroid injection last year which resolved the pain) - negative for DVT. low suspicion for septic arthritis - no noted rash, low suspicion for shingles - will stop Valtrex - will refer to Ortho on dc - PT to eval (2) HTN (hypertension) Comment: - continue losartan and atenolol (3) DVT prophylaxis Comment: heparin sc Status and Disposition: OBV. PT to eval. Most likely DC to home tomorrow if no rehab needs.
[2018-10-24] MEDS: Lidocaine Patch REMOVE* 1 NOTE MISC SCH (22:24)
[2018-10-25] MEDS: ceFAZolin 1 GM ADVAN(*) 1 GM in NS 0.9% 50 ML* 50 ML IVPB SCH (03:23)
[2018-10-25] MEDS: Acetaminophen TAB* 325 MG PO PRN ×2 (05:52→10:22)
[2018-10-25] MEDS: Heparin VIAL(*) 5000 UNITS/ML VIAL (FIVE THOUSAND) SUBCUT SCH (05:53)
[2018-10-25 07:03] LABS: ABS Basophils 0.1 10^3/ul (0-0.2); ABS Eosinophils 0.3 10^3/ul (0-0.6); ABS Lymphocytes 1.8 10^3/ul (1.0-4.8); ABS Monocytes 0.6 10^3/ul (0-0.8); ABS Neutrophils 5.7 10^3/ul (1.5-7.7); ABS Nucleated RBC 0 10^3/ul; Hematocrit 33 % (35-47); Hemoglobin 10.9 g/dl (12.0-16.0); Lymphocyte % 21.5 %; Mean Corpuscular HGB Conc 33 g/dl (31-36); Mean Corpuscular Hemoglobin 27 pg (27-31); Mean Corpuscular Volume 81 fL (80-97); Mean Platelet Volume 6.7 fL (7.4-10.4); Nucleated Red Blood Cells % 0; Platelet Count 362 10^3/ul (150-450); Red Blood Count 4.02 10^6/ul (4.00-5.40); Red Cell Distribution Width 15 % (10.5-15); White Blood Count 8.6 10^3/ul (3.5-10.8)
[2018-10-25 07:19] LABS: BUN/Creatinine Ratio 30.3 (8-20); C Reactive Protein 114.71 mg/L (<8.01); Calcium 9.3 mg/dL (8.6-10.3); EGFR African American 104.5 (>60); EGFR Non-African American 86.4 (>60)
[2018-10-25] MEDS ORDERED: ceFUROXime TAB(*) 250 MG PO SCH (10:00)
[2018-10-25] MEDS: Lidocaine PATCH 5%* 1 PATCH TRANSDERM SCH (10:21)
[2018-10-25] MEDS: Atenolol TAB* 50 MG PO SCH (10:22)
[2018-10-25] MEDS: Losartan TAB* 25 MG PO SCH (10:22)
[2018-10-25] MEDS: Senna TAB PO SCH (10:23)
[2018-10-25] MEDS: Docusate CAP* 100 MG PO SCH (10:23)
--- NOTE | 2018-10-25 10:30 | DCNOTE ---
Subjective Date of Service: 10/25/18 Interval History: Pt feels ready to go home reporting her pain and swelling is much improved. She does admit she could have had some mild trauma to leg and not have realized it or possibly this is secondary to her left knee. She reports she is able to ambulate now without any pain. Reports her thigh still feels " a little swollen and tight" - no redness, fever. Noted UTI on cx - patient denies any symptoms. Objective Active Medications: Acetaminophen (Tylenol Tab*) 650 mg PO Q4H PRN PRN Reason: FEVER/PAIN Last Admin: 10/25/18 10:22 Dose: 650 mg Al Hydrox/Mg Hydrox/Simethicone (Maalox Plus*) 30 ml PO Q6H PRN PRN Reason: INDIGESTION Atenolol (Tenormin Tab*) 50 mg PO DAILY [facility] Last Admin: 10/25/18 10:22 Dose: 50 mg Cefuroxime Axetil (Ceftin Tab(*)) 250 mg PO BID [facility] Last Admin: 10/25/18 10:23 Dose: 250 mg Docusate Sodium (Colace Cap*) 100 mg PO BID [facility] Last Admin: 10/25/18 10:23 Dose: Not Given Heparin Sodium (Porcine) (Heparin Vial(*)) 5,000 units SUBCUT Q8HR [facility] Last Admin: 10/25/18 05:53 Dose: 5,000 units Ketorolac Tromethamine (Toradol Inj*) 15 mg IV PUSH Q6H PRN PRN Reason: PAIN Lidocaine (Lidoderm 5% Patch*) 1 patch TRANSDERM DAILY [facility] Last Admin: 10/25/18 10:21 Dose: 1 patch Losartan Potassium (Cozaar Tab*) 50 mg PO DAILY [facility] Last Admin: 10/25/18 10:22 Dose: 50 mg Multivitamins ( Vitamin Tab*) 1 tab PO DAILY@1200 [facility] Last Admin: 10/24/18 12:55 Dose: 1 tab Ondansetron HCl (Zofran Inj*) 4 mg IV Q4H PRN PRN Reason: NAUSEA/VOMITING Oxycodone/Acetaminophen (Percocet 5/325 Tab*) 1 tab PO Q4H PRN PRN Reason: Pain Pharmacy Profile Note (Lidocaine Patch Remove*) 1 note N/A 2100 [facility] Last Admin: 10/24/18 22:24 Dose: 1 note Senna (Senokot Tab*) 1 tab PO BID [facility] Last Admin: 10/25/18 10:23 Dose: Not Given Vitamin E (Vitamin E Cap*) 400 unit PO DAILY@1200 [facility] Last Admin: 10/24/18 12:55 Dose: 400 unit Vital Signs - 8 hr 10/25/18 10/25/18 03:00 07:25 Temperature 98.3 F 97.4 F Pulse Rate 76 69 Respiratory 19 14 Rate Blood Pressure 137/55 131/59 (mmHg) O2 Sat by Pulse 95 97 Oximetry Oxygen Devices in Use Now: None Appearance: elderly female sitting up in bed in NAD, A+O x3 Eyes: No Scleral Icterus, PERRLA Ears/Nose/Mouth/Throat: NL Teeth, Lips, Gums, Mucous Membranes Moist Neck: NL Appearance and Movements; NL JVP Respiratory: Symmetrical Chest Expansion and Respiratory Effort, Clear to Auscultation Cardiovascular: NL Sounds; No Murmurs; No JVD, RRR, No Edema Abdominal: NL Sounds; No Tenderness; No Distention Extremities: - - left thigh has mild trace edema anterior thigh closest to knee - knee has good ROM - no noted joint redness, warmth or swelling Skin: - - left LE has noted anterior redness (pt states is chronic and has not changed) Neurological: Alert and Oriented x 3, NL Sensation, NL Gait, NL Muscle Strength and Tone Lines/Tubes/Other Access: Clean, Dry and Intact Peripheral IV Result Diagrams: 10/25/18 06:23 10/25/18 06:23 Microbiology and Other Data: Microbiology 10/23/18 02:05 Urine Culture - Preliminary Urine Escherichia Coli 10/23/18 02:06 Aerobic Blood Culture - Preliminary Blood Venous No Growth Day 1 Anaerobic Blood Culture - Preliminary No Growth Day 1 10/23/18 00:59 Aerobic Blood Culture - Preliminary Blood Venous No Growth Day 1 Anaerobic Blood Culture - Preliminary No Growth Day 1 Assess/Plan/Problems-Billing Assessment: the 78 yo female with PMH of arthritis, remote hx of erythema nodosum presents to the ER with anterior thigh pain - Patient Problems (1) Thigh pain Comment: - pain much better - there is mild noted edema above knee -> generalized thigh just above knee, good rom with knee, no noted erythema or significant joint swelling of knee. This initially seemed to start with knee pain, known osteroarthritis in that knee which she has had a return in pain over the prior week (had steroid injection last year which resolved the pain) - I suspect her symptoms are secondary to knee osteoarthritis or possible mild trauma - now improving and much decrease in pain. Is able to ambulate. Will follow up with Ortho as outpt - negative for DVT. low suspicion for septic arthritis - no noted rash, low suspicion for shingles - Valtrex DC (2) HTN (hypertension) Comment: - continue losartan and atenolol (3) DVT prophylaxis Comment: heparin sc Status and Disposition: OBV. plan to DC to home
[2018-10-25 11:23] VITALS: BP 136/56
--- NOTE | 2018-10-25 21:20 | DS ---
DISCHARGE SUMMARY: DATE OF ADMISSION: 10/23/18 DATE OF DISCHARGE: 10/25/18 PROVIDER: Chris Lu NP ATTENDING PHYSICIAN: Dr. Glaser * (report dictated by Chris Lu NP). PRIMARY CARE PROVIDER: Dr. Cristina Randhawa. REFERRED TO: Dr. Connor, orthopedic surgeon. DISCHARGE DIAGNOSES: 1. Left lower anterior thigh pain. I suspect osteoarthritis of the left knee. 2. Possible urinary tract infection. SECONDARY DIAGNOSES: 1. Hypertension. 2. Meningioma, status post resection with residual left-sided weakness. 3. Erythema nodosum. 4. Arthritis. 5. Mitral valve regurgitation. HISTORY OF PRESENT ILLNESS AND HOSPITAL COURSE: Please see history and physical by Dr. Evans for full admission details, but in summary, this is a 78- year-old female with a past medical history as stated above, who presented to the Emergency Department on 10/23/18 with complaint of worsening left leg pain. The patient was admitted for concern for possible DVT versus cellulitic region in her left lower extremity, however, the patient reports that is chronic and unchanged. She did undergo a Doppler which was negative for DVT. The venous Doppler read "limited exam of calf." No evidence of deep vein thrombosis. The patient also underwent a lower extremity CT with contrast which showed "1. Trace left knee joint effusion. 2. Subcutaneous edema of the distal left lower extremity beginning at the level above the knee with increasing induration , subcutaneous confluence towards the ankle and to the foot. Findings may reflect cellulitis, possible lymphatic or venous stasis." As well, she underwent a lumbar spine CT which showed there was little change from 08/18/17. The patient did have a positive E. coli urinary tract infection, however, the patient denied any symptoms of dysuria, increased frequency or urgency. She was surprised to find out she had a urinary tract infection. In regards to the patient's left thigh which was her main complaint, this dramatically improved over her hospitalization. There was noted some swelling to her left lower anterior thigh, however, there was no noted erythema. The patient has good range of motion in the knee joint. This improved over hospitalization and currently on discharge, there was a trace amount of edema. Per the patient, she has known left osteoarthritis in her left knee in which she did get a steroid injection approximately a year ago with Dr. Crabtree, which resolved her knee pain and she noted approximately 7 to 10 days ago her knee pain started to return. She reports that when weightbearing and ambulation , she has noted more pain in the knee and felt that her arthritis was coming back and was thinking she may benefit from another steroid injection. It was then several days later that she developed this anterior lower left thigh discomfort and edema. I suspect this is all secondary to her osteoarthritis. She is being sent to orthopedic team this week as an outpatient. She has been ambulating at her baseline independently without pain in the hospital. The patient agrees with plan for discharge to home. Again, I do have concerns for a septic knee and as regards to her left lower extremity erythema per the patient this is chronic and not new. DISCHARGE MEDICATIONS: 1. Folic acid 1 tab p.o. daily. 2. Vitamin E cap 400 units p.o. daily. 3. Multivitamin with mineral one tab p.o. daily. 4. Atenolol 50 mg p.o. daily. 5. Losartan 50 mg p.o. daily. 6. Vitamin C 500 mg p.o. daily. 7. Ceftin 250 mg p.o. b.i.d. x5 days to cover for urinary tract infection. 8. Lidocaine cream transdermal to left thigh q.6 hours p.r.n. DISCHARGE PLAN: 1. Follow up with primary care provider, Dr. Cristina Randhawa in 5 to 7 days. 2. The patient has a scheduled appointment with Dr. Connor, orthopedist on at 11 a.m. 3. The patient is stable for home. TIME SPENT: Approximately 60 minutes was spent on this discharge. CHRIS LU, [employer] [id number]/[facility] #: [id number] [place]
== END 2018-10-25 12:00 | disposition home or self-care (01) ==
LOC: ED 00:42 → SSU 08:33
PROVIDERS: ADMIT Pediatrics; ATTEND Internal Medicine
DX: M54.16 Radiculopathy, lumbar region (principal); M79.662 Pain in left lower leg; I89.0 Lymphedema, not elsewhere classified; Z79.01 Long term (current) use of anticoagulants; I10 Essential (primary) hypertension; Z87.442 Personal history of urinary calculi; Z86.011 Personal history of benign neoplasm of the brain; M19.90 Unspecified osteoarthritis, unspecified site; I34.1 Nonrheumatic mitral (valve) prolapse
CPT/HCPCS: 36415; 72131; 80048; 80053; 81003; 81015; 83605; 84484; 85025; 85610; 86140; 87040; 87077; 87086; 87186; 93005; 96374; 96375; 99285; A9270-GY; G0378; G8978-GP-CK; G8979-GP-CI; G8987-GO-CL; G8988-GO-CK; J0690; J1100; J1644; J2060; Q9967

== ENCOUNTER 2019-04-03 15:49 | Emergency (ER) | payer MEDICARE, MEDICAID ==
--- NOTE | 2019-04-03 17:31 | UC ---
Upper Extremity HPI - HPI Summary HPI Summary: Ms. Turner workup with her right hand puffy but 3 days ago. It's a little better now but not completely gone. She has no pain in it and no known injury. - History of Current Complaint Chief Complaint: UCUpperExtremity Stated Complaint: PUFFY HANDS Time Seen by Provider: 04/03/19 17:00 Hx Obtained From: Patient Onset/Duration: Sudden Onset Severity Initially: Moderate Severity Currently: Mild Pain Intensity: 0 Aggravating Factor(s): Nothing Associated Signs And Symptoms: Positive: Swelling, Other - unknown - Allergies/Home Medications Allergies/Adverse Reactions: Allergies Allergy/AdvReac Type Severity Reaction Status Date / Time lanolin Allergy Rash Verified 04/03/19 16:15 latex Allergy Rash Verified 04/03/19 16:15 Quinolones Allergy Unknown Verified 04/03/19 16:15 Reaction Details PMH/Surg Hx/FS Hx/Imm Hx Cardiovascular History: Hypertension Other History Of: Anticoagulant Therapy - Surgical History Surgical History: Yes Surgery Procedure, Year, and Place: CRANIOTOMY -meningioma removal 1983,. tonsils. Lt [facility] - Family History Known Family History: Positive: Hypertension, Diabetes Family History: heart murmur - Social History Alcohol Use: None Substance Use Type: None Smoking Status (MU): Never Smoked Tobacco - Immunization History Most Recent Influenza Vaccination: never Most Recent Pneumonia Vaccination: 2011 Review of Systems All Other Systems Reviewed And Are Negative: Yes Constitutional: Positive: Negative Skin: Positive: Negative Respiratory: Positive: Negative Cardiovascular: Positive: Negative Gastrointestinal: Positive: Negative Motor: Positive: Negative Neurovascular: Positive: Negative Musculoskeletal: Positive: Edema Neurological: Positive: Negative Physical Exam - Summary Physical Exam Summary: She is nontoxic in appearance with stable vital signs. Triage Information Reviewed: Yes Appearance: Well-Appearing, No Pain Distress Vital Signs: Initial Vital Signs Temp 98.8 F 04/03/19 16:10 Pulse 59 04/03/19 16:10 Resp 18 04/03/19 16:10 BP 118/60 04/03/19 16:10 Pulse Ox 97 04/03/19 16:10 Neck exam: Normal Respiratory Exam: Normal Cardiovascular Exam: Normal Cardiovascular: Positive: Murmur:Sys:Grade _?_/ Musculoskeletal Exam: Other - She's got some mild puffy edema of her right dorsal hand. It is nontender to palpation and has full active and passive range of motion without tenderness. Neurological Exam: Normal Skin Exam: Normal Diagnostics - Radiology Right Upper Estremity Venous Doppler Radiology Interpretation Completed By: Radiologist Summary of Radiographic Findings: No DVT Right Hand X-Ray Radiology Interpretation Completed By: ED Physician Summary of Radiographic Findings: No Acute Process Upper Extremity Course/Dx - Course Course Of Treatment: And not sure what the etiology of her hand swelling is. She is concerned that it could be congestive heart failure but I see no evidence of that. I recommended follow-up with her PCP. - Differential Dx/Diagnosis Provider Diagnosis: Swelling of right hand Discharge - Sign-Out/Discharge Documenting (check all that apply): Patient Departure All imaging exams completed and their final reports reviewed: Yes - Discharge Plan Condition: Stable Disposition: HOME Referrals: Cristina Randhawa MD [Primary Care Provider] - Additional Instructions: The source of the swelling is uncertain but I don't think it's anything dangerous. I recommended follow-up with Dr. Randhawa if it hasn't gone away in the next day or 2. - Billing Disposition and Condition Condition: STABLE Disposition: Home
[2019-04-03 18:38] VITALS: BP 155/67
== END 2019-04-03 20:00 | disposition home or self-care (01) ==
LOC: UCEAST 15:49
DX: R22.31 Localized swelling, mass and lump, right upper limb (principal); I10 Essential (primary) hypertension; Z79.01 Long term (current) use of anticoagulants; Z91.040 Latex allergy status
CPT/HCPCS: 99211; G0463

== ENCOUNTER 2019-05-05 14:20 | Emergency (ER) | payer MEDICARE, MEDICAID ==
--- NOTE | 2019-05-05 15:32 | ED ---
Upper Extremity Pain - HPI Summary HPI Summary: Pt is an 79 y/o F presenting to the ED brought in by EMS with a chief complaint of L arm pain. She states she had an episode on 04/27 of arm pain that resolved, and this afternoon she experienced another episode that resolved about a half an hour later when she took her BP medicine described as an ache. She notes chronic weakness in her L arm from a prior meningioma. She denies any fever, chills, erythema of eyes, sore throat, CP, palpitations, SOB, cough, abdominal pain, N/V, dysuria, hematuria, myalgia, back pain, neck pain, recent trauma or illness, edema, rash, or dizziness. Sx alleviated by resting. - History of Current Complaint Chief Complaint: EDExtremityUpper Stated Complaint: ARM DISCOMFORT PER EMS Time Seen by Provider: 05/05/19 14:25 Hx Obtained From: Patient Mechanism Of Injury: Unknown Onset/Duration: Started Days Ago, Still Present Timing: Constant, Lasting Days Severity Initially: Moderate Severity Currently: Moderate Pain Location: Arm - L Character: Aching Aggravating Factor(s): Nothing Alleviating Factor(s): Rest Associated Signs & Symptoms: Positive: Weakness. Negative: Fever, Chest Pain, SOB, Back Pain, Neck Pain, Nausea, Vomiting - Allergies/Home Medications Allergies/Adverse Reactions: Allergies Allergy/AdvReac Type Severity Reaction Status Date / Time lanolin Allergy Rash Verified 04/03/19 16:15 latex Allergy Rash Verified 04/03/19 16:15 Quinolones Allergy Unknown Verified 04/03/19 16:15 Reaction Details PMH/Surg Hx/FS Hx/Imm Hx Previously Healthy: Yes Endocrine/Hematology History: Reports: Hx Anticoagulant Therapy Denies: Hx Diabetes, Hx Thyroid Disease Cardiovascular History: Reports: Hx Hypertension, Hx Valvular Heart Disease - mitral valve regurg, Other Cardiovascular Problems/Disorders - left ventricular hypertrophy, murmur Denies: Hx Pacemaker/ICD Respiratory History: Denies: Hx Asthma, Hx Chronic Obstructive Pulmonary Disease (COPD), Other Respiratory Problems/Disorders GI History: Denies: Hx Ulcer, Other GI Disorders History: Reports: Hx Kidney Stones - several years ago Denies: Hx Renal Disease, Other Problems/Disorders Musculoskeletal History: Reports: Hx Arthritis - right knee, Hx Tendonitis - arm and shoulder Denies: Other Musculoskeletal History Sensory History: Reports: Hx Contacts or Glasses - glasses Denies: Hx Cataracts, Hx Hearing Aid Opthamlomology History: Reports: Hx Contacts or Glasses - glasses Denies: Hx Cataracts Neurological History: Reports: Hx Nerve Disease - peripheral neuropathy Denies: Hx Dementia, Hx Seizures, Other Neuro Impairments/Disorders Psychiatric History: Reports: Hx Anxiety - hypochondriac, worrier Denies: Hx Panic Disorder, Hx Substance Abuse - Surgical History Surgery Procedure, Year, and Place: CRANIOTOMY -meningioma removal 1983,. tonsils. Lt [facility] Hx Anesthesia Reactions: No - Immunization History Immunizations Up to Date: Yes Infectious Disease History: No Infectious Disease History: Denies: Hx Clostridium Difficile, Hx Hepatitis, Hx Human Immunodeficiency Virus (HIV), Hx of Known/Suspected MRSA, Hx Shingles, Hx Tuberculosis, Hx Known/ Suspected VRE, Hx Known/Suspected VRSA, History Other Infectious Disease, Traveled Outside the [place] in Last 30 Days - Family History Known Family History: Positive: Cardiac Disease - mother, Hypertension, Diabetes Family History: heart murmur - Social History Alcohol Use: None Hx Substance Use: No Substance Use Type: Reports: None Hx Tobacco Use: No Smoking Status (MU): Never Smoked Tobacco Review of Systems Negative: Fever, Chills, Skin Diaphoresis Negative: Erythema Negative: Sore Throat Negative: Palpitations, Chest Pain Negative: Shortness Of Breath, Cough Negative: Abdominal Pain, Vomiting, Nausea Negative: dysuria, hematuria Positive: Myalgia - L arm pain, from bicep to wrist. Negative: Edema, Other - back pain, neck pain Negative: Rash Neurological: Negative - dizziness Positive: Weakness - chronic, no acute weakness. All Other Systems Reviewed And Are Negative: Yes Physical Exam - Summary Physical Exam Summary: Constitutional: Well-developed, Well-nourished, Alert. (-) Distressed Skin: Warm, Dry HENT: Normocephalic; Atraumatic Eyes: Conjunctiva normal Neck: Musculoskeletal ROM normal neck. (-) JVD, (-) Stridor, (-) Tracheal deviation Cardio: Rhythm regular, rate normal, Heart sounds normal; Intact distal pulses; The pedal pulses are 2+ and symmetric. Radial pulses are 2+ and symmetric. (-) Murmur Pulmonary/Chest wall: Effort normal. (-) Respiratory distress, (-) Wheezes, (-) Rales Abd: Soft, (-) tenderness, (-) Distension, (-) Guarding, (-) Rebound Musculoskeletal: (-) Edema. L arm is tender to palpation. Full ROM intact. Lymph: (-) Cervical adenopathy Neuro: Alert, Oriented x3 Psych: Mood and affect Normal Triage Information Reviewed: Yes Vital Signs On Initial Exam: Initial Vitals Temp Pulse Resp BP Pulse Ox 98.6 F 68 18 131/61 97 05/05/19 14:22 05/05/19 14:22 05/05/19 14:22 05/05/19 14:22 05/05/19 14:22 Vital Signs Reviewed: Yes - [place] Coma Scale Best Eye Response: 4 - Spontaneous Best Motor Response: 6 - Obeys Commands Best Verbal Response: 5 - Oriented Coma Scale Total: 15 Diagnostics - Vital Signs Vital Signs Temp Pulse Resp BP Pulse Ox 05/05/19 14:22 98.6 F 68 18 131/61 97 - Laboratory Result Diagrams: 05/05/19 15:33 05/05/19 15:33 Lab Statement: Any lab studies that have been ordered have been reviewed, and results considered in the medical decision making process. - Radiology CXR Radiology Interpretation Completed By: Radiologist Summary of Radiographic Findings: 1. Stigmata of chronic obstructive pulmonary disease and probable pulmonary arterial hypertension. 2. No acute cardiopulmonary process evident. ED physician has reviewed this report. - CT Brain CT CT Interpretation Completed By: Radiologist Summary of CT Findings: 1. NO ACUTE INTRACRANIAL PATHOLOGY. 2. STABLE POSTSURGICAL CHANGE TO THE RIGHT FRONTAL AND PARIETAL LOBES. ED physician has reviewed this report. CT C-spine CT Interpretation Completed By: Radiologist Summary of CT Findings: 1. SCOLIOSIS. 2. OSTEOPENIA. 3. DEGENERATIVE DISC DISEASE AND OSTEOARTHRITIS. 4. NO SIGNIFICANT OSSEOUS NEURAL FORAMINAL NARROWING OR CENTRAL CANAL STENOSIS. ED physician has reviewed this report. - EKG 1444 Cardiac Rate: NL - 62bpm EKG Rhythm: Sinus Rhythm ST Segment: Normal Ectopy: None Summary of EKG Findings: EKG at 1444 shows NSR at 62bpm with no STEMI. Course/Dx - Course Course Of Treatment: Pt is an 79 y/o F presenting to the ED with a chief complaint of L arm pain. She states she had an episode on 04/27 of arm pain that resolved, and this afternoon she experienced another episode that resolved when she took her BP medicine described as an ache. She notes chronic weakness in her L arm from a prior meningioma. She denies any fever, chills, diaphoresis, erythema of eyes, sore throat, CP, palpitations, SOB, cough, abdominal pain, N/V , dysuria, hematuria, myalgia, back pain, neck pain, recent trauma or illness, edema, rash, or dizziness. Sx alleviated by resting. On exam, the pt's L arm is tender to palpation, but ROM is fully intact. CXR shows: 1. Stigmata of chronic obstructive pulmonary disease and probable pulmonary arterial hypertension. 2. No acute cardiopulmonary process evident. EKG at 1444 shows NSR at 62bpm with no STEMI. Brain CT shows: 1. NO ACUTE INTRACRANIAL PATHOLOGY. 2. STABLE POSTSURGICAL CHANGE TO THE RIGHT FRONTAL AND PARIETAL LOBES. CT C-spine shows: 1. SCOLIOSIS. 2. OSTEOPENIA. 3. DEGENERATIVE DISC DISEASE AND OSTEOARTHRITIS. 4. NO SIGNIFICANT OSSEOUS NEURAL FORAMINAL NARROWING OR CENTRAL CANAL STENOSIS. I discussed the pt with Dr. Randhawa at 1850. She understands that the pt has 2 negative Troponin levels, and she agrees to have the office contact the pt for the next available appointment to facilitate the pt having a stress test done. The pt has no tenderness. She has mild but somewhat different pain with movement that could be a strain or sprain. She does not have edema, or risk for DVT. It could be angina equivalent. The pt does not have a stress test available, and she has two negative troponin levels. NH has been ruled out. There is no new weakness. - Diagnoses Provider Diagnoses: Left arm pain Discharge ED - Sign-Out/Discharge Documenting (check all that apply): Patient Departure Patient Received Moderate/Deep Sedation with Procedure: No - Discharge Plan Condition: Stable Disposition: HOME Patient Education Materials: Arm Pain (ED) Referrals: Cristina Randhawa MD [Primary Care Provider] - Additional Instructions: Please follow up with Dr. Randhawa within the next 2-3 days to facilitate having a cardiac stress test done. Return to the emergency department with any new or worsening symptoms. - Attestation Statements Document Initiated by Scribe: Yes Documenting Scribe: Kavita Donohue Provider For Whom Scribe is Documenting (Include Credential): Johnson Correia MD. Scribe Attestation: Kavita Gaffney, scribed for Johnson Correia MD. on 05/05/19 at 1904. Status of Scribe Document: Ready
[2019-05-05 15:41] LABS: ABS Basophils 0.1 10^3/ul (0-0.2); ABS Eosinophils 0.5 10^3/ul (0-0.6); ABS Lymphocytes 1.1 10^3/ul (1.0-4.8); ABS Monocytes 0.7 10^3/ul (0-0.8); ABS Neutrophils 6.1 10^3/ul (1.5-7.7); Eosinophil % 5.8 %; Hematocrit 31 % (35-47); Hemoglobin 10.5 g/dL (12.0-16.0); Lymphocyte % 13.4 %; Mean Corpuscular HGB Conc 34 g/dL (31-36); Mean Corpuscular Hemoglobin 25 pg (27-31); Mean Corpuscular Volume 76 fL (80-97); Mean Platelet Volume 6.1 fL (7.4-10.4); Platelet Count 491 10^3/uL (150-450); Red Blood Count 4.12 10^6 /uL (3.70-4.87); Red Cell Distribution Width 16 % (10-15); White Blood Count 8.5 10^3/uL (3.5-10.8)
--- OUTSIDE RECORDS SUMMARY | 2019-05-05 15:49 | XMS REPORT | Summary of Care ---
:1940 Author Organization [facility] Address [address] [facility] [place] [address] Care Team Providers Name Role Phone Cristina Randhawa MD Primary Care Provider Reason for Referral Refer to Department Only (Routine) Status Reason Specialty Diagnoses / Referred By Referred To Procedures Contact Contact Pending Review Gastroenterology Diagnoses Other dysphagia Mireille Durand MD Gastroenterolog [address] [place] [address]/[address] [place] [address] [place] [address] Phone: [phone] Phone: Scheduling Instructions Is the patient on cpap machine?No Is the patient on oxygen?No BP 134/68 (BP Location: Left arm, Patient Position: Sitting) | Pulse 64 | Ht 4' 11.5" (1.511 m) | Wt 144 lb (65.3 kg) | BMI 28.60 kg/m BMI Readings from Last 4 Encounters: 04/13/19 : 28.60 kg/m 03/20/19 : 28.36 kg/m 09/14/18 : 29.79 kg/m 06/21/18 : 28.20 kg/m Controlled Substance Medications: Anticoagulant Medications: Psychiatric/Antianxiety Medications: Antiretroviral Medications: Diagnostic Testing (Routine) Status Reason Specialty Diagnoses / Referred By Referred To Procedures Contact Contact Pending Review Diagnoses Mitral valve insufficiency, unspecified etiology Celestina Durand ECHOCARDIOGRAM TTE MD Satish [facility] [place] [address] Reason for Visit Reason Comments Follow Up Pt. in for a Follow up on HTN. 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 0 Active 1 cap qd MULTI-VITAMIN PO Take by mouth 0 Active DAILY. Misc Natural Take by mouth. 0 Active Products (BEE PROPOLIS) 500 MG Oral Cap Cyanocobalamin Take by mouth 0 Active (B-12) 1000 MCG Oral DAILY. Tab CR Vitamins C E Take by mouth 0 Active (VITAMIN C & E DAILY. COMPLEX PO) nystatin Apply 1 gram to 1 Tube 3 11/24/2017 Active (MYCOSTATIN) 239074 rash under both UNIT/GM Apply breasts twice externally daily as needed CreamIndications: Rash Nystatin 967586 1 g by Apply 1 Bottle 2 06/02/2018 Active UNIT/GM Apply externally externally Powder route TWICE DAILY. losartan (COZAAR) 50 Take 1 Tab by 90 Tab 3 11/07/2018 Active MG Oral Tab mouth DAILY. atenolol (TENORMIN) Take 1 Tab by 180 Tab 3 02/10/2019 Active 25 MG Oral mouth TWICE TabIndications: DAILY. Dynamic left ventricular outflow obstruction TURMERIC PO Take 1 Tab by 0 Active mouth DAILY. atenolol (TENORMIN) Take 1 Tab by 180 Tab 3 2019 Discontinued 25 MG Oral mouth TWICE 9 TabIndications: DAILY. 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 04/11/2014 Meningioma 12/19/2008 Overview: [id number] - beningn (anisocoria)l left leg weakness Osteoporosis, unspecified 09/01/2005 Edema 11/29/2001 Hypertension Dyslipidemia documented as of this encounter (statuses as of 04/13/2019) Resolved Problems Problem Noted Date Resolved Date Other psoriasis 11/29/2001 09/26/2007 documented as of this encounter (statuses as of 04/13/2019) Immunizations Name Administration Dates Next Due PNEUMOCOCCAL POLYSACCHARIDE VACCINE 05/30/2012 Pneumococcal Conjugate(13 Valent) 06/01/2018 TDAP Vaccine 06/26/2011 Vitamin B12 (1,000 mcg) 07/13/2016, 06/11/2016 documented as of this encounter Social History Tobacco Use Types Packs/Day Years Used Date Never Smoker Smokeless Tobacco: Never Used Alcohol Use Drinks/Week oz/Week Comments No Sex Assigned at Date Recorded Not on file Job Start Date Occupation Industry Not on file Not on file Not on file Travel History Travel Start Travel End No recent travel history available. documented as of this encounter Last Filed Vital Signs Vital Sign Reading Time Taken Comments Blood Pressure 134/68 04/13/2019 4:19 PM EDT Pulse 64 04/13/2019 4:19 PM EDT Temperature - - Respiratory Rate - - Oxygen Saturation - - Inhaled Oxygen Concentration - - Weight 65.3 kg (144 lb) 04/13/2019 4:19 PM EDT Height 151.1 cm (4' 11.5") 04/13/2019 4:19 PM EDT Body Mass Index 28.6 04/13/2019 4:19 PM EDT documented in this encounter Patient Instructions Patient InstructionsSatish Durand MD - 04/13/2019 4:20 PM EDT No medication changes today. Continue to work on a low sodium diet. I've referred you to the GI doctor for further evaluation of your swallowing difficulty. Schedule an echocardiogram in 6 months and follow up with me shortly after that. documented in this encounter Progress Notes Satish Durand MD - 04/13/2019 4:20 PM EDT [facility] Note Patient: Tania Turner Date of : 1940 Date of Service: 04/13/2019 REFERRING PRACTITIONER: Markos PRIMARY CARE PROVIDER: Cristina Randhawa Chief Complaint: Chief Complaint Patient presents with Follow Up Pt. in for a Follow up on HTN. History of Present Illness: We had the pleasure of seeing Tania Turner today at the [facility] Cardiology Office. She is a 79-y.o. female with longstanding HTN, hyperlipidemia, and LVH withdynamic LVOT obstruction as well as severe mitral regurgitation on echo. ISMAEL was attempted in 05/2018 but the probe could not be passed at that time so the procedure was aborted. Ms. Turner returns to cardiology clinic today for routine f/u. After her last visit I had recommended doing a ISMAEL to evaluate her MR, but I was unable to pass the ISMAEL probe beyond the posterior pharynx so the procedure was aborted. She reports that she does sometimes have difficulty with chewing and swallowing meat. No choking or feeling like the food gets stuck. Has never had an EGD or other GIevaluation. Otherwise she's been feeling pretty well. She denies any limiting dyspnea (but does minimal activityat baseline). Denies any palpitations or syncope. No chest pains/pressure. No significant orthopnea but sleeps with HOB raised in her hospital bed. No PND. Continues to have LE edema which isn't changed. 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 Vitamin B 12 deficiency Arthralgia of right knee Lymphedema of both lower extremities Non-rheumatic mitral regurgitation Past Medical History: Diagnosis Date Dyslipidemia Hypertension Meningioma 1984 Osteoporosis Psoriasis Past Surgical History: Procedure Laterality Date ECHO, TRANS ESOPHOGEAL N/A 06/21/2018 Procedure: ECHO, TRANS ESOPHOGEAL; Surgeon: Satish Durand MD; Location : [facility]; Laterality: N/A; ISMAEL ABORTED EXCISE BRAIN MENINGES TONSILLECTOMY No Known Allergies Current Outpatient Medications Medication atenolol (TENORMIN) 25 MG Oral Tab Cyanocobalamin (B-12) 1000 MCG Oral Tab CR losartan (COZAAR) 50 MG Oral Tab Misc Natural Products (BEE PROPOLIS) 500 MG Oral Cap MULTI-VITAMIN PO nystatin (MYCOSTATIN) 403593 UNIT/GM Apply externally Cream Nystatin 255317 UNIT/GM Apply externally Powder SALMON OIL PO CAPS TURMERIC PO Vitamins C E (VITAMIN C & E COMPLEX PO) Family History Problem Relation Age of Onset Stroke Mother High Blood Pressure Mother Heart Disease Father High Cholesterol Brother Social History Socioeconomic History Marital status: Spouse name: Not on file Number of children: Not on file Years of education: Not on file Highest education level: Not on file Occupational History Not on file Social Needs Financial resource strain: Not on file Food insecurity: Worry: Not on file Inability: Not on file Transportation needs: Medical: Not on file Non-medical: Not on file Tobacco Use Smoking status: Never Smoker Smokeless tobacco: Never Used Substance and Sexual Activity Alcohol use: No Drug use: Not on file Sexual activity: Not on file Lifestyle Physical activity: Days per week: Not on file Minutes per session: Not on file Stress: Not on file Relationships Social connections: Talks on phone: Not on file Gets together: Not on file Attends scientologist service: Not on file Active member of club or organization: Not on file Attends meetings of clubs or organizations: Not on file Relationship status: Not on file Intimate partner violence: Fear of current or ex partner: Not on file Emotionally abused: Not on file Physically abused: Not on file Forced sexual activity: Not on file Other Topics Concern Not on file Social History Narrative Lives alone. Review of Systems - Negative except as noted in HPI. Physical Exam: Vitals: 04/13/19 1619 BP: 134/68 BP Location: Left arm Patient Position: Sitting Pulse: 64 Weight: 144 lb (65.3 kg) Height: 4' 11.5" (1.511 m) Body mass index is 28.6 kg/m. General: Alert 79-y.o. female in NAD. HEENT: anicteric, MMM, no E/E OP, conj pink Neck: JVP approx 6-7cm above RA; no carotid bruits or LAD. CV: RR, normal s1/s2. 2/6 systolic ejection murmur at LSB which augments slightly with Valsalva (similar to prior). A separate 2/6 apical holosystolic murmur is also again noted. Pulm: CTA bilaterally without wheezes, rhonchi, or rales. No increased work of breathing. Abd: soft, obese, NT, ND, +BS. No appreciable pulsatile masses or bruits. Ext: 1+ bilateral lower extremity edema. No cyanosis, no cords, redness, or warmth, 1+ distal pulses. Neuro: Chronic L sided weakness unchanged. Patient unable/unwilling to try to climb onto exam table. Skin: chronic venous stasis skin changes on LEs. Labs: Lab Results Component Value Date NA 138 06/21/2018 K 4.3 06/21/2018 CL 103 06/21/2018 CO2 25 06/21/2018 GLUCOSE 101 (H) 06/21/2018 BUN 24 (H) 06/21/2018 CREATININE 0.7 06/21/2018 CALCIUM 9.5 06/21/2018 TP 6.8 11/29/2001 ALBUMIN 3.9 11/29/2001 AST 26 11/29/2001 ALT 15 05/23/2003 ALK 85 11/29/2001 TBILI 0.8 11/29/2001 No results found for: BNP Lab Results Component Value Date CHOL 253 (H) 02/18/2015 TRIG 122 02/18/2015 HDL 46 02/18/2015 LDL 183 (H) 02/18/2015 LDLHDLRATIO 4.0 02/18/2015 CHOLHDLRATIO 5.5 02/18/2015 Cardiac Studies: TTE 04/07/18: FINAL IMPRESSION: Concentric LVH with mild but dynamic LVOT gradient and moderate left atrial enlargement, as described. Hyperdynamic LV systolic function with no regional wall motion abnormalities; estimated LVEF 75-80%. Normal right heart size and RV systolic function. Mild calcific mitral stenosis with approximately severe mitral regurgitation, likely secondary to calcific mitral valve disease (see text). No pericardial effusion. Compared to prior study 04/09/17, measured LVOT gradients are slightly lower but may be underestimated on current study. Other findings are largely similar. TTE at [facility] 06/29/17: TTE 04/09/17: FINAL IMPRESSION: Concentric LVH with dynamic LVOT gradient and moderate left atrial enlargement, as described. Hyperdynamic LV systolic function with no regional wall motion abnormalities; estimated LVEF 70-75%. Normal right heart size and RV systolic function. Approximately moderate to severe mitral regurgitation, likely secondary to calcific mitral valve disease (see text). No pericardial effusion. Compared to prior study 01/08/2017, LVOT gradients are lower (although may have been slightly underestimated on current study d/t poor doppler spectra). Other findings are largely similar. Assessment & Plan: Tania Turner is a 79-y.o. female with longstanding HTN, hyperlipidemia, and LVH with dynamic LVOT obstruction as well as severe mitral regurgitation on echo. ISMAEL was attempted in 05/2018 but theprobe could not be passed at that time so the procedure was aborted. 1. LVH with Dynamic LVOT Obstruction: Symptoms and murmur are fairly stable. Cont atenolol 50mg daily. Cont losartan 50mg daily. 2. Mitral Regurgitation: Has been quite significant on recent echoes, and appears to be secondary tocalcific mitral valve disease (although TTE quality has not been good enough to definitively discernthe mechanism). Clinically, she continues to do fairly well, although she doesn't do much activity to see if her MR is causing/contributing to dyspnea. Will cont afterload reduction with losartan and I again counseled her on dietary sodium restriction. We attempted ISMAEL last fall but I couldn't pass the probe, so the procedure was aborted. At this point, I'm just going to repeat a TTE in 6 months for surveillance of the valve. 3. Dysphagia: Pt reports somewhat vague and not "classic" symptoms of dysphagia , but given the fact that I was unable to pass the ISMAEL probe I think it's reasonable to have her further evaluated. I've referred her to GI for consideration of EGD versus upper GI series versus other diagnostic testing wallace shukla. 4. HTN and LE edema: BP reasonably well controlled for her today. Cont losartan and atenolol. I again counseled her on the importance of sodium restriction. Thank you for allowing me to participate in the care of Tania Turner. We will plan on f/u in our office in 6 months (shortly after her TTE) or sooner prn. If you have any questions or concerns please feel free to call our office at . Satish Durand MD, 04/13/2019, 16:29 This note was created using my previous note as a template; changes were made where appropriate, andall information in the current note is up to date to the best of my knowledge. documented in this encounter Plan of Treatment Date Type Specialty Care Team Description 05/03/2019 Office Visit Gastroenterology Penny Ortiz, [address] [place] [address] [phone] 10/18/2019 Orders Only Cardiology 10/23/2019 Office Visit Cardiology Satish Durand MD [address] [place], [place] [address] [phone] Name Type Priority Associated Diagnoses Order Schedule ECHOCARDIOGRAM TTE CV Lab Routine Mitral valve insufficiency, Expected: unspecified etiology (Approximate), Expires: 05/17/2020 Name Type Priority Associated Diagnoses Order Schedule REFER TO GI Referral Routine Other dysphagia Expected: 04/13/2019, Expires: 04/13/2020 Health Maintenance Due Date Last Done Comments DEPRESSION SCREENING 1952 HIV SCREENING 1955 ZOSTER IMMUNIZATION SERIES (1 1989 of 2) FALL RISK ASSESSMENT 02/12/2004 MEDICARE ANNUAL WELLNESS VISIT 06/26/2012 06/26/2011 OSTEOPOROSIS SCREENING 05/09/2019 05/09/2009 (Previously completed) PNEUMOCOCCAL 65+YRS Completed 06/01/2018, 05/30/2012 HPV IMMUNIZATION SERIES Aged Out No longer eligible based on patient's age to complete this topic MENINGOCOCCAL VACCINE IMM Aged Out No longer eligible based on patient's age to complete this topic documented as of this encounter Goals Goal Patient Goal Associated Recent Patient-Stated? Author Type Problems Progress Blood Pressure Blood Pressure 134/68 No Sydnee, < 150/90 (04/13/2019 MD Cristina 4:19 PM EDT) Note: This is an individualized treatment (blood pressure) goal for Tania Turner : Displayed above (on the left) is your goal for blood pressure control. Your most recent blood pressure is also shown above, on the right. You should try to achieve blood pressures that are lower than your goal listed above (on the left). Weight loss vs. 18 mo max Lifestyle 6 (04/13/2019 4:19 PM EDT) No Cristina Randhawa MD (lbs) >= 10 Note: This is an individualized lifestyle goal for Tania Turner: Your body mass index (BMI) is more than 30. You should lose weight. A reasonable starting goal is to lose 10 pounds. Displayed above is how many pounds you have lost thus far towards your 10 pound weight loss goal. Take all prescribed medications as directed Self-management Cristina Winslow MD Note: This is an individualized self-management goal for Tania Turner: Please take all prescribed medications as directed. 1. Do not skip doses. If you cannot afford your medications, talk with your doctor. 2. Use a pill reminder system such as a pill box if needed. Your pharmacist can help you with this. 3. Contact your Pharmacy 5 days before your medication runs out. If you cannot take your medications for any reasons, talk with your doctor. 4. Please bring all of your medication bottles and inhalers (or a list of all your medications/inhalers) with you to every visit. Potential barriers to meeting all of your care plan goals will continue to be addressed on an ongoing basis. 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
[2019-05-05 16:00] LABS: Albumin 3.4 g/dL (3.2-5.2); Albumin/Globulin Ratio 0.9 (1-3); BUN/Creatinine Ratio 20.9 (8-20); Calcium 9.2 mg/dL (8.6-10.3); EGFR African American 102.5 (>60); EGFR Non-African American 84.7 (>60); Globulin 3.7 g/dL (2-4); Potassium 4.4 mmol/L (3.5-5.0); Total Bilirubin 0.3 mg/dL (0.2-1.0); Total Protein 7.1 g/dL (6.4-8.9)
[2019-05-05 16:10] LABS: Troponin I 0.02 ng/mL (<0.04)
[2019-05-05 19:16] VITALS: BP 140/56
== END 2019-05-05 19:33 | disposition home or self-care (01) ==
LOC: ED 14:20
DX: M79.602 Pain in left arm (principal); M41.9 Scoliosis, unspecified; I10 Essential (primary) hypertension; I34.0 Nonrheumatic mitral (valve) insufficiency; F41.9 Anxiety disorder, unspecified; Z79.899 Other long term (current) drug therapy; Z88.8 Allergy status to other drugs, medicaments and biological substances; Z88.1 Allergy status to other antibiotic agents; Z91.040 Latex allergy status
CPT/HCPCS: 36415; 70450; 71045; 72125; 80053; 80061; 83036; 83605; 84484; 85025; 93005; 99283

== ENCOUNTER 2019-08-24 12:52 | Emergency (ER) | payer MEDICARE, MEDICAID ==
--- NOTE | 2019-08-24 13:42 | UC ---
Skin Complaint HPI - HPI Summary HPI Summary: 79 yo woman, marginally living alone with irregular aide support, comes in with the assistance of her ex-, whom she called this morning when she realized that she had drainage from her left leg. She has longstanding lymphedema of the left leg, uncertain etiology, and she has used a pump irregularly over time, but not in recent months. 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 She lives alone and is not attentive to her own medical needs. She can prepare her own meals, but is overall inactive. She spends most of her time reading on line. States no hx of diabetes. - History of Current Complaint Time Seen by Provider: 08/24/19 13:39 Stated Complaint: WOUND ON LEG Hx Obtained From: Patient Onset/Duration: Gradual Onset, Lasting Weeks - history of onset is very unclear. She became aware of drainage from the wound just today. Timing: Constant Onset Severity: Moderate Current Severity: Moderate Location: Discrete - left foreleg Aggravating Factor(s): Touch Alleviating Factor(s): Nothing - no interventions tried. Related History: Trauma - she scratches her legs a lot. - Allergy/Home Medications Allergies/Adverse Reactions: Allergies Allergy/AdvReac Type Severity Reaction Status Date / Time lanolin Allergy Rash Verified 08/24/19 13:53 latex Allergy Rash Verified 08/24/19 13:53 Quinolones Allergy Unknown Verified 08/24/19 13:53 Reaction Details Home Medications: Home Medications Bee Propolis 1 cap PO DAILY 08/24/19 [History Confirmed 08/24/19] Multivitamin [Multivitamins] 1 cap PO DAILY 08/24/19 [History Confirmed 08/24/19 ] [place] Oil/[place]-3 Fatty Acids [[place] Oil] 1 cap PO DAILY 08/24/19 [History Confirmed 08/24/19] Vitamin B Complex [Super B-50 Complex] 1 each PO DAILY 08/24/19 [History Confirmed 08/24/19] PMH/Surg Hx/FS Hx/Imm Hx - Additional Past Medical History Additional PMH: chronic lymphedema of the left leg. Cardiovascular History: Hypertension Psychological History: Other - past excision of meningioma Other History Of: Anticoagulant Therapy - Surgical History Surgical History: Yes Surgery Procedure, Year, and Place: CRANIOTOMY -meningioma removal 1983,. tonsils. Lt [facility] - Family History Known Family History: Positive: Cardiac Disease - mother, Hypertension, Diabetes Family History: heart murmur - Social History Occupation: Retired Lives: Alone Alcohol Use: None Substance Use Type: None Smoking Status (MU): Never Smoked Tobacco - Immunization History Most Recent Influenza Vaccination: never Most Recent Pneumonia Vaccination: 2011 Review of Systems All Other Systems Reviewed And Are Negative: Yes Constitutional: Positive: Negative Skin: Positive: Negative Eyes: Positive: Negative ENT: Positive: Negative Respiratory: Positive: Negative Cardiovascular: Positive: Negative Gastrointestinal: Positive: Negative Genitourinary: Positive: Negative Motor: Positive: Negative Neurovascular: Positive: Negative Musculoskeletal: Positive: Arthralgia - hx of pseudogout Neurological: Positive: Weakness Psychological: Positive: Negative Is Patient Immunocompromised?: No Physical Exam Triage Information Reviewed: Yes Appearance: Well-Appearing - In no acute distress, mildly unkempt., No Pain Distress ENT: Positive: Pharynx normal Neck: Positive: Supple, Nontender, No Lymphadenopathy Respiratory: Positive: Lungs clear, Normal breath sounds Cardiovascular: Positive: RRR, No Murmur Musculoskeletal Exam: Normal Musculoskeletal: Positive: ROM Intact - at right knee, without pain, Edema @ - left leg Neurological: Positive: Alert, Muscle Tone Normal Skin Exam: Other - erythema with mild induration of the left foreleg extending 22 x 14 cm over the anteriolateral calf. There is an area of shallow ulceration with purulent serous drainage, area about 4 cm area. Course/Dx - Course Course Of Treatment: Begin augmentin, elevated leg, dressing applied. needs re-check in 24 hours. - Differential Diagnoses - Skin Complaint Differential Diagnoses: Cellulitis, Other - lymphedema - Diagnoses Provider Diagnosis: Cellulitis of left lower leg Discharge ED - Sign-Out/Discharge Documenting (check all that apply): Patient Departure All imaging exams completed and their final reports reviewed: No Studies - Discharge Plan Condition: Stable Disposition: HOME Prescriptions: Amoxicillin/Clavulanate TAB* [Augmentin TAB 875*] 875 mg PO BID #20 tab Patient Education Materials: Cellulitis (ED) Referrals: Cristina Randhawa MD [Primary Care Provider] - Additional Instructions: You have cellulitis of the left leg. It is important to have a re-assessment of the leg tomorrow. If you cannot be seen at [facility], please return here for a check. IF THE LEG HAS INCREASED REDNESS OR PAIN, OR YOU HAVE A FEVER, PLEASE GO TO THE EMERGENCY ROOM. Occasionally infections like this need to be treated with iv antibiotics. Keep the leg elevated as much as possible. - Billing Disposition and Condition Condition: STABLE Disposition: Home
[2019-08-24 14:00] VITALS: BP 120/62
[2019-08-24] MEDS ORDERED: Mupirocin 2% OINT* TUBE TOPICAL ONE (14:25)
== END 2019-08-24 14:48 | disposition home or self-care (01) ==
LOC: UCEAST 12:52
DX: L03.116 Cellulitis of left lower limb (principal); I89.0 Lymphedema, not elsewhere classified; I10 Essential (primary) hypertension; Z88.8 Allergy status to other drugs, medicaments and biological substances; Z91.040 Latex allergy status
CPT/HCPCS: 87070; 87077; 87186; 87205; 87640; 87641; 99212; G0463

== ENCOUNTER 2019-08-25 12:41 | Emergency (ER) | payer MEDICARE, MEDICAID ==
--- NOTE | 2019-08-25 13:21 | UC ---
Skin Complaint HPI - HPI Summary HPI Summary: 79 yo female presents for a wound recheck of her LEFT lower leg. She was seen here yesterday and placed on Augmentin and dressing applied. She was told to return today for re-dressing of the wound and a recheck. Pt states that she has had lymphedema for many years of this leg and has had this from time to time. Admits to picking at the scabs of her legs if she has a wound. Compared to yesterday pt states it feels the same - little pain or discomfort. Has not removed the dressing placed yesterday. Has been taking her anbx as directed. No fevers. - History of Current Complaint Time Seen by Provider: 08/25/19 13:21 Stated Complaint: RECHECK WOUND ON LEG Hx Obtained From: Patient Onset Severity: Mild Current Severity: Mild Pain Intensity: 3 Pain Scale Used: 0-10 Numeric - Allergy/Home Medications Allergies/Adverse Reactions: Allergies Allergy/AdvReac Type Severity Reaction Status Date / Time lanolin Allergy Rash Verified 08/25/19 13:15 latex Allergy Rash Verified 08/25/19 13:15 Quinolones Allergy Unknown Verified 08/25/19 13:15 Reaction Details PMH/Surg Hx/FS Hx/Imm Hx - Additional Past Medical History Additional PMH: Lymphedema Cardiovascular History: Hypertension Other History Of: Anticoagulant Therapy - Surgical History Surgical History: Yes Surgery Procedure, Year, and Place: CRANIOTOMY -meningioma removal 1983,. tonsils. Lt [facility] - Family History Known Family History: Positive: Cardiac Disease - mother, Hypertension, Diabetes Family History: heart murmur - Social History Lives: Alone Alcohol Use: None Substance Use Type: None Smoking Status (MU): Never Smoked Tobacco - Immunization History Most Recent Influenza Vaccination: never Most Recent Pneumonia Vaccination: 2011 Review of Systems All Other Systems Reviewed And Are Negative: No Constitutional: Positive: Negative Skin: Positive: Other - Wound left leg Respiratory: Positive: Negative Cardiovascular: Positive: Negative Neurological: Positive: Negative Psychological: Positive: Negative Physical Exam - Summary Physical Exam Summary: GENERAL: NAD. WDWN. No pain distress. SKIN: LEFT LOWER LEG: erythema with mild induration of the left foreleg extending 22 x 14 cm over the anteriolateral calf. anterolateral aspect with 1.5cm area of purulent yellow drainage. No warmth CHEST: No accessory muscle use. Breathing comfortably and in no distress. CV: Pulses intact. Cap refill <2seconds. NEURO: Alert. PSYCH: Age appropriate behavior. Triage Information Reviewed: Yes Vital Signs: Vital Signs: Temp Pulse Resp BP Pulse Ox 98.6 F 61 18 114/51 97 08/25/19 13:09 08/25/19 13:09 08/25/19 13:09 08/25/19 13:09 08/25/19 13:09 Vital Signs Reviewed: Yes Course/Dx - Course Course Of Treatment: Culture reviewed and still pending, but negative MRSA and staph. Advised to continue anbx po. Wound appears quite wet today, therefore instead of telfa dressings optifoam was applied today and recommended using these to change the bandage daily. Elevate leg and be rechecked by PCP in 3-4 days. Go to ER with any fevers. - Diagnoses Provider Diagnosis: Wound of left leg Discharge ED - Sign-Out/Discharge Documenting (check all that apply): Patient Departure All imaging exams completed and their final reports reviewed: No Studies - Discharge Plan Condition: Stable Disposition: HOME Patient Education Materials: Chronic Wound Care (ED), Chronic Wounds (ED) Referrals: Cristina Randhawa MD [Primary Care Provider] - 3 Days Additional Instructions: If you develop a fever, shortness of breath, chest pain, new or worsening symptoms - please call your PCP or go to the ED immediately. Change the dressing daily. Please have the leg rechecked by your primary doctor in 3-4 days. Continue taking your antibiotic as directed - Billing Disposition and Condition Condition: STABLE Disposition: Home
[2019-08-25 13:25] VITALS: BP 114/51
== END 2019-08-25 14:06 | disposition home or self-care (01) ==
LOC: UCEAST 12:41
DX: S81.802A Unspecified open wound, left lower leg, initial encounter (principal); I89.0 Lymphedema, not elsewhere classified; I10 Essential (primary) hypertension; Z88.8 Allergy status to other drugs, medicaments and biological substances; Z91.040 Latex allergy status; X58.XXXA Exposure to other specified factors, initial encounter; Y92.9 Unspecified place or not applicable
CPT/HCPCS: 99212; G0463

== ENCOUNTER 2020-07-10 09:31 | Observation (INO) ==
[2020-07-10 12:44] LABS: ABS Basophils 0.1 10^3/ul (0-0.2); ABS Eosinophils 0.3 10^3/ul (0-0.6); ABS Lymphocytes 1.5 10^3/ul (1.0-4.8); ABS Monocytes 0.6 10^3/ul (0-0.8); ABS Neutrophils 4.4 10^3/ul (1.5-7.7); Eosinophil % 4.5 %; Hematocrit 33 % (35-47); Hemoglobin 11.3 g/dL (12.0-16.0); Lymphocyte % 21.6 %; Mean Corpuscular HGB Conc 34 g/dL (31-36); Mean Corpuscular Hemoglobin 29 pg (27-31); Mean Corpuscular Volume 84 fL (80-97); Mean Platelet Volume 6.9 fL (7.4-10.4); Platelet Count 305 10^3/uL (150-450); Red Blood Count 3.96 10^6 /uL (3.70-4.87); Red Cell Distribution Width 15 % (10-15); White Blood Count 6.9 10^3/uL (3.5-10.8)
[2020-07-10 12:54] LABS: Albumin 3.8 g/dL (3.2-5.2); Albumin/Globulin Ratio 1.3 (1-3); BUN/Creatinine Ratio 34.5 (8-20); Calcium 9.4 mg/dL (8.6-10.3); EGFR African American 75.6 (>60); EGFR Non-African American 62.5 (>60); Potassium 4.2 mmol/L (3.5-5.0); Total Bilirubin 0.5 mg/dL (0.2-1.0); Total Protein 6.8 g/dL (6.4-8.9)
[2020-07-10 12:55] LABS: Urine Appearance Clear; Urine Bilirubin Negative (Negative); Urine Blood Negative (Negative); Urine Color Yellow; Urine Glucose Negative (Negative); Urine Ketones Negative (Negative); Urine Nitrite Negative (Negative); Urine Protein Negative (Negative); Urine Urobilinogen Negative (Negative)
[2020-07-10 13:00] LABS: Urine Bacteria Absent (Absent); Urine Red Blood Cell Trace(0-2/hpf) (Absent); Urine Squamous Epithelial Cell Present (Absent); Urine White Blood Cell 1+(6-10/hpf) (Absent)
[2020-07-10] MEDS: Heparin 5000 UNITS/ML 1 mL VIAL SUBCUT SCH (22:51)
[2020-07-10] MEDS: Nystatin TOP POWDER 15 GM BTL TOPICAL SCH (22:52)
[2020-07-11] MEDS: Heparin 5000 UNITS/ML 1 mL VIAL SUBCUT SCH ×3 (06:24→22:15)
[2020-07-11] MEDS: Vitamin THERAPEUTIC TAB PO SCH (09:37)
[2020-07-11] MEDS: OMEGA 3 FATTY ACIDS PO SCH (09:40)
[2020-07-11] MEDS: VITAMIN A 8000 UNIT PO SCH (09:40)
[2020-07-11] MEDS: [UNRECOGNIZED DRUG - OTHER] PO SCH (09:40)
[2020-07-11] MEDS: Nystatin TOP POWDER 15 GM BTL TOPICAL SCH ×3 (09:48→22:15)
[2020-07-11] MEDS: Aspirin EC 325 mg TAB.EC PO PRN (22:14)
[2020-07-12] MEDS: Heparin 5000 UNITS/ML 1 mL VIAL SUBCUT SCH ×2 (05:30→15:18)
[2020-07-12] MEDS: Aspirin EC 325 mg TAB.EC PO PRN (09:06)
[2020-07-12] MEDS: VITAMIN A 8000 UNIT PO SCH (09:06)
[2020-07-12] MEDS: Vitamin THERAPEUTIC TAB PO SCH (09:06)
[2020-07-12] MEDS: Nystatin TOP POWDER 15 GM BTL TOPICAL SCH ×2 (09:07→15:18)
[2020-07-12] MEDS: [UNRECOGNIZED DRUG - OTHER] PO SCH (09:07)
[2020-07-12] MEDS: OMEGA 3 FATTY ACIDS PO SCH (09:07)
[2020-07-12 13:45] VITALS: BP 143/46
== END 2020-07-12 15:59 | disposition swing bed (61) ==
LOC: ED 09:31 → MEDTELE 09:31
PROVIDERS: ADMIT Internal Medicine; ATTEND Internal Medicine

== ENCOUNTER 2020-07-12 16:02 | Inpatient (IN) ==
[2020-07-12] MEDS ORDERED: Aspirin EC 325 mg TAB.EC PO PRN (18:26)
[2020-07-12] MEDS: Nystatin TOP POWDER 15 GM BTL TOPICAL SCH (21:11)
[2020-07-12] MEDS: Enoxaparin 40 MG/0.4 ML SYR SUBCUT SCH (21:11)
[2020-07-13] MEDS: Multivitamins/Minerals TAB PO SCH (08:43)
[2020-07-13] MEDS: CMCS:OMEGA-3 FATTY ACID 1000 mg(NF) PO SCH (08:44)
[2020-07-13] MEDS: Nystatin TOP POWDER 15 GM BTL TOPICAL SCH ×4 (08:45→20:24)
[2020-07-13] MEDS: VITAMIN A 8000 UNIT PO SCH (11:14)
[2020-07-13] MEDS: Enoxaparin 40 MG/0.4 ML SYR SUBCUT SCH (20:21)
[2020-07-14] MEDS: Nystatin TOP POWDER 15 GM BTL TOPICAL SCH ×4 (09:00→20:12)
[2020-07-14] MEDS: Multivitamins/Minerals TAB PO SCH (09:52)
[2020-07-14] MEDS: CMCS:OMEGA-3 FATTY ACID 1000 mg(NF) PO SCH (09:53)
[2020-07-14] MEDS: VITAMIN A 8000 UNIT PO SCH (09:54)
[2020-07-14] MEDS: Enoxaparin 40 MG/0.4 ML SYR SUBCUT SCH (20:10)
[2020-07-15] MEDS: CMCS:OMEGA-3 FATTY ACID 1000 mg(NF) PO SCH (08:51)
[2020-07-15] MEDS: Multivitamins/Minerals TAB PO SCH (08:51)
[2020-07-15] MEDS: Nystatin TOP POWDER 15 GM BTL TOPICAL SCH ×3 (08:53→20:39)
[2020-07-15] MEDS: VITAMIN A 8000 UNIT PO SCH (08:54)
[2020-07-15] MEDS: Enoxaparin 40 MG/0.4 ML SYR SUBCUT SCH (20:38)
[2020-07-15] MEDS ORDERED: Influenza VAC *QUAD* 2020-21* 0.5 ML SYRINGE IM ONE (21:00)
[2020-07-16] MEDS: Multivitamins/Minerals TAB PO SCH (08:53)
[2020-07-16] MEDS: VITAMIN A 8000 UNIT PO SCH (08:54)
[2020-07-16] MEDS: Nystatin TOP POWDER 15 GM BTL TOPICAL SCH ×2 (08:54→14:02)
[2020-07-16] MEDS: CMCS:OMEGA-3 FATTY ACID 1000 mg(NF) PO SCH (08:54)
[2020-07-16 09:01] VITALS: BP 168/60
== END 2020-07-16 16:30 | disposition home health service (06) | DRG 563 ==
LOC: MEDTELE 16:03
PROVIDERS: ADMIT Internal Medicine; ATTEND Internal Medicine

== ENCOUNTER 2024-03-31 19:45 | Observation (INO) ==
[2024-03-31 20:28] LABS: ABS Basophils 0.1 10^3/uL (0.0-0.1); ABS Eosinophils 0.2 10^3/uL (0.0-0.5); ABS Lymphocytes 0.8 10^3/uL (1.0-4.8); ABS Monocytes 0.4 10^3/uL (0.0-0.9); ABS Neutrophils 4.9 10^3/uL (1.5-7.6); ABS Nucleated RBC 0.01 10^3/ul; Eosinophil % 2.9 %; Hematocrit 38.8 % (35-45); Hemoglobin 12.8 g/dL (11.5-14.3); Lymphocyte % 12.7 %; Mean Corpuscular Hemoglobin 27.7 pg (27-33); Mean Corpuscular Hgb Conc 33.1 g/dL (31-36); Mean Corpuscular Volume 83.7 fL (80-97); Mean Platelet Volume 6.7 fL (7.5-11.2); Nucleated Red Blood Cells % 0.1 %/100WBC (0.0-0.8); Platelet Count 405 10^3/uL (150-450); Red Blood Count 4.64 10^6/uL (3.63-4.92); Red Cell Distribution Width 15.8 % (12-17); White Blood Count 6.3 10^3/uL (3.8-11.8)
[2024-03-31 20:38] LABS: INR 1.16 (0.83-1.13)
[2024-03-31 21:13] LABS: Albumin 4.5 g/dL (3.2-5.2); Albumin/Globulin Ratio 1.4 (1-3); Creatinine, Serum 1.22 mg/dL (0.51-0.95); Globulin 3.3 g/dL (2-4); Potassium 4.3 mmol/L (3.5-5.0); Total Bilirubin 0.7 mg/dL (0.2-1.0); Total Protein 7.8 g/dL (6.4-8.9); eGFR CKD-EPI 43.5 (>60)
[2024-03-31] MEDS: Aspirin EC 325 mg TAB.EC PO ONE (21:28)
[2024-03-31 22:25] LABS: C Reactive Protein 12.11 mg/L (<8.01)
[2024-04-01] MEDS: Morphine 2 MG/ML SYRINGE IV ONE (09:42)
[2024-04-01] MEDS: cefTRIAXone 1 gm/50 mL D5W 1 GM/50 ML BAG IV SCH (09:59)
[2024-04-02 06:40] LABS: ABS Eosinophils 0.3 10^3/uL (0.0-0.5); ABS Lymphocytes 1.2 10^3/uL (1.0-4.8); ABS Monocytes 0.5 10^3/uL (0.0-0.9); ABS Neutrophils 3.3 10^3/uL (1.5-7.6); Eosinophil % 5.9 %; Hemoglobin 10.5 g/dL (11.5-14.3); Lymphocyte % 21.8 %; Mean Corpuscular Hemoglobin 29.1 pg (27-33); Mean Corpuscular Hgb Conc 32.7 g/dL (31-36); Mean Corpuscular Volume 89.2 fL (80-97); Mean Platelet Volume 6.8 fL (7.5-11.2); Nucleated Red Blood Cells % 0.1 %/100WBC (0.0-0.8); Platelet Count 282 10^3/uL (150-450); Red Blood Count 3.59 10^6/uL (3.63-4.92); Red Cell Distribution Width 16.1 % (12-17); White Blood Count 5.4 10^3/uL (3.8-11.8)
[2024-04-02 06:54] LABS: Calcium 8.5 mg/dL (8.6-10.3); Creatinine, Serum 0.87 mg/dL (0.51-0.95); Potassium 4.4 mmol/L (3.5-5.0); eGFR CKD-EPI 65.2 (>60)
[2024-04-03 06:10] LABS: ABS Basophils 0.1 10^3/uL (0.0-0.1); ABS Eosinophils 0.4 10^3/uL (0.0-0.5); ABS Lymphocytes 1.1 10^3/uL (1.0-4.8); ABS Monocytes 0.6 10^3/uL (0.0-0.9); ABS Neutrophils 4.7 10^3/uL (1.5-7.6); ABS Nucleated RBC 0.01 10^3/ul; Eosinophil % 5.6 %; Hematocrit 32.1 % (35-45); Hemoglobin 11.2 g/dL (11.5-14.3); Lymphocyte % 15.7 %; Mean Corpuscular Hemoglobin 29.1 pg (27-33); Mean Platelet Volume 6.7 fL (7.5-11.2); Nucleated Red Blood Cells % 0.1 %/100WBC (0.0-0.8); Platelet Count 332 10^3/uL (150-450); Red Blood Count 3.87 10^6/uL (3.63-4.92); Red Cell Distribution Width 15.2 % (12-17); White Blood Count 6.8 10^3/uL (3.8-11.8)
[2024-04-03 06:59] LABS: Calcium 8.9 mg/dL (8.6-10.3); Creatinine, Serum 0.95 mg/dL (0.51-0.95); Magnesium 1.6 mg/dL (1.9-2.7); Potassium 4.3 mmol/L (3.5-5.0); eGFR CKD-EPI 58.7 (>60)
[2024-04-03] MEDS: Magnesium Sulf 4 GM/100 ML IV 4,000 MG/100 ML BAG IVPB ONE (09:31)
[2024-04-04 12:29] VITALS: BP 143/57
== END 2024-04-04 14:58 | disposition home health service (06) ==
LOC: EDHOLD 19:45 → ED 19:45 → SUATTDRO 04-01 00:16 → EDHOLD 04-01 01:10 → MEDTELE 04-01 01:29
PROVIDERS: ADMIT Student in an Organized Health Care Education/Training Program; ATTEND Internal Medicine

== ENCOUNTER 2024-09-09 18:31 | Inpatient (IN) ==
[2024-09-09 20:22] LABS: ABS Lymphocytes 0.4 10^3/uL (1.0-4.8); ABS Monocytes 0.5 10^3/uL (0.0-0.9); ABS Neutrophils 4.8 10^3/uL (1.5-7.6); Eosinophil % 0.1 %; Hematocrit 37.3 % (35-45); Hemoglobin 12.4 g/dL (11.5-14.3); Lymphocyte % 7.2 %; Mean Corpuscular Hemoglobin 28.6 pg (27-33); Mean Corpuscular Hgb Conc 33.4 g/dL (31-36); Mean Corpuscular Volume 85.6 fL (80-97); Mean Platelet Volume 6.2 fL (7.5-11.2); Nucleated Red Blood Cells % 0.1 %/100WBC (0.0-0.8); Platelet Count 300 10^3/uL (150-450); Red Blood Count 4.35 10^6/uL (3.63-4.92); Red Cell Distribution Width 15.9 % (12-17); White Blood Count 5.8 10^3/uL (3.8-11.8)
[2024-09-09 20:33] LABS: INR 1.27 (0.85-1.14)
[2024-09-09 20:58] LABS: Albumin/Globulin Ratio 1.3 (1-3); C Reactive Protein 87.53 mg/L (<8.01); Calcium 9.3 mg/dL (8.6-10.3); Creatinine, Serum 1.18 mg/dL (0.51-0.95); Globulin 3.2 g/dL (2-4); Potassium 4.4 mmol/L (3.5-5.0); Total Bilirubin 0.7 mg/dL (0.2-1.0); Total Protein 7.2 g/dL (6.4-8.9); eGFR CKD-EPI 45.3 (>60)
[2024-09-09] MEDS: Furosemide 40 mg/4 ml IV VIAL IV SLOW PU ONE (21:39)
[2024-09-09 22:18] LABS: High Sensitivity Troponin 1 Hr 198 pg/mL (<15)
[2024-09-09] MEDS ORDERED: Sulfur Hexaflouride MICROSPHR 25 MG VIAL IV PRN (22:55)
[2024-09-09] MEDS ORDERED: Albuterol/Ipratropium NEB.SOL (2.5/0.5 MG) 3 ML NEB.SOLN INH PRN (22:56)
[2024-09-10] MEDS: Enoxaparin 30 MG/0.3 ML SYR SUBCUT SCH (01:43)
[2024-09-10 02:25] LABS: High Sensitivity Troponin 3 Hr 240 pg/mL (<15)
[2024-09-10 05:49] LABS: Urine Appearance Clear; Urine Bilirubin Negative (Negative); Urine Blood Negative (Negative); Urine Color Colorless; Urine Glucose Negative (Negative); Urine Ketones Negative (Negative); Urine Nitrite Negative (Negative); Urine Protein Negative (Negative); Urine Specific Gravity 1.007 (1.002-1.030); Urine Urobilinogen Negative (Negative)
[2024-09-10 05:52] LABS: Urine Bacteria 1+ /HPF (Absent); Urine Red Blood Cell Trace(0-2/hpf) /HPF (0-Trace); Urine Squamous Epithelial Cell Present /HPF (Absent); Urine White Blood Cell Trace(0-5/hpf) /HPF (0-Trace)
[2024-09-10 10:31] LABS: ABS Lymphocytes 0.9 10^3/uL (1.0-4.8); ABS Monocytes 0.8 10^3/uL (0.0-0.9); ABS Neutrophils 4.7 10^3/uL (1.5-7.6); ABS Nucleated RBC 0.01 10^3/ul; Eosinophil % 0.7 %; Hematocrit 34.1 % (35-45); Hemoglobin 11.6 g/dL (11.5-14.3); Mean Corpuscular Hemoglobin 28.7 pg (27-33); Mean Corpuscular Volume 84.4 fL (80-97); Mean Platelet Volume 6.4 fL (7.5-11.2); Nucleated Red Blood Cells % 0.1 %/100WBC (0.0-0.8); Platelet Count 283 10^3/uL (150-450); Red Blood Count 4.04 10^6/uL (3.63-4.92); Red Cell Distribution Width 15.7 % (12-17); White Blood Count 6.5 10^3/uL (3.8-11.8)
[2024-09-10 10:50] LABS: Creatinine, Serum 1.5 mg/dL (0.51-0.95); Magnesium 1.7 mg/dL (1.9-2.7); Potassium 4.3 mmol/L (3.5-5.0); eGFR CKD-EPI 33.9 (>60)
[2024-09-10] MEDS: Magnesium Sulfate IV 1GM/100ML 1 GM/100 ML BAG IV ONE (12:49)
[2024-09-10] MEDS: Albuterol/Ipratropium NEB.SOL (2.5/0.5 MG) 3 ML NEB.SOLN INH SCH (14:12)
[2024-09-11 06:13] LABS: ABS Eosinophils 0.2 10^3/uL (0.0-0.5); ABS Lymphocytes 1.1 10^3/uL (1.0-4.8); ABS Monocytes 0.7 10^3/uL (0.0-0.9); ABS Neutrophils 3.5 10^3/uL (1.5-7.6); ABS Nucleated RBC 0.01 10^3/ul; Eosinophil % 2.9 %; Hematocrit 32.9 % (35-45); Hemoglobin 11.3 g/dL (11.5-14.3); Lymphocyte % 19.3 %; Mean Corpuscular Hemoglobin 28.9 pg (27-33); Mean Corpuscular Hgb Conc 34.4 g/dL (31-36); Mean Platelet Volume 6.7 fL (7.5-11.2); Nucleated Red Blood Cells % 0.2 %/100WBC (0.0-0.8); Platelet Count 264 10^3/uL (150-450); Red Blood Count 3.92 10^6/uL (3.63-4.92); Red Cell Distribution Width 15.5 % (12-17); White Blood Count 5.4 10^3/uL (3.8-11.8)
[2024-09-11 06:29] LABS: Calcium 8.7 mg/dL (8.6-10.3); Creatinine, Serum 1.49 mg/dL (0.51-0.95); Magnesium 1.8 mg/dL (1.9-2.7); Potassium 4.4 mmol/L (3.5-5.0); eGFR CKD-EPI 34.2 (>60)
[2024-09-11] MEDS: Lactated Ringers 1000 ml BAG 1,000 ML IV ONE ×2 (10:48)
[2024-09-11] MEDS: Magnesium Sulfate 2 gm BAG 2 GM/50 ML BAG IVPB ONE (10:48)
[2024-09-11 10:49] LABS: C Reactive Protein 88.09 mg/L (<8.01)
[2024-09-11 17:52] LABS: Anion Gap 8 mmol/L (2-16); Blood Urea Nitrogen 36 mg/dL (6-24); CO2 Carbon Dioxide 30 mmol/L (22-32); Chloride 99 mmol/L (101-111); Creatinine, Serum 1.16 mg/dL (0.51-0.95); Glucose 107 mg/dL (70-100); Sodium 137 mmol/L (135-145); eGFR CKD-EPI 46.2 (>60)
[2024-09-11] MEDS: guaiFENesin 100 mg/5 ml LIQ unit dose cup PO PRN (22:14)
[2024-09-12 05:30] LABS: ABS Eosinophils 0.2 10^3/uL (0.0-0.5); ABS Lymphocytes 0.9 10^3/uL (1.0-4.8); ABS Monocytes 0.6 10^3/uL (0.0-0.9); ABS Neutrophils 4.4 10^3/uL (1.5-7.6); ABS Nucleated RBC 0.01 10^3/ul; Eosinophil % 3.4 %; Hematocrit 33.7 % (35-45); Hemoglobin 11.3 g/dL (11.5-14.3); Mean Corpuscular Hgb Conc 33.4 g/dL (31-36); Mean Corpuscular Volume 83.7 fL (80-97); Mean Platelet Volume 6.7 fL (7.5-11.2); Nucleated Red Blood Cells % 0.2 %/100WBC (0.0-0.8); Platelet Count 252 10^3/uL (150-450); Red Blood Count 4.03 10^6/uL (3.63-4.92); Red Cell Distribution Width 15.7 % (12-17); White Blood Count 6.1 10^3/uL (3.8-11.8)
[2024-09-12 06:02] LABS: Calcium 8.6 mg/dL (8.6-10.3); Creatinine, Serum 1.01 mg/dL (0.51-0.95); Magnesium 2.1 mg/dL (1.9-2.7); Potassium 4.6 mmol/L (3.5-5.0); eGFR CKD-EPI 54.6 (>60)
[2024-09-13 06:18] LABS: ABS Eosinophils 0.3 10^3/uL (0.0-0.5); ABS Lymphocytes 1.1 10^3/uL (1.0-4.8); ABS Monocytes 0.7 10^3/uL (0.0-0.9); ABS Neutrophils 2.9 10^3/uL (1.5-7.6); Eosinophil % 6.3 %; Hemoglobin 10.9 g/dL (11.5-14.3); Lymphocyte % 21.7 %; Mean Corpuscular Hemoglobin 27.8 pg (27-33); Mean Corpuscular Hgb Conc 33.1 g/dL (31-36); Mean Platelet Volume 6.9 fL (7.5-11.2); Nucleated Red Blood Cells % 0.1 %/100WBC (0.0-0.8); Platelet Count 284 10^3/uL (150-450); Red Blood Count 3.93 10^6/uL (3.63-4.92); Red Cell Distribution Width 15.6 % (12-17); White Blood Count 5.1 10^3/uL (3.8-11.8)
[2024-09-13 07:22] LABS: Calcium 8.7 mg/dL (8.6-10.3); Creatinine, Serum 0.85 mg/dL (0.51-0.95); Magnesium 1.8 mg/dL (1.9-2.7); Potassium 4.7 mmol/L (3.5-5.0); eGFR CKD-EPI 67.1 (>60)
[2024-09-13 11:15] LABS: Rapid COVID-19 Molecular Undetected (Undetected)
[2024-09-13] MEDS: Albuterol/Ipratropium NEB.SOL (2.5/0.5 MG) 3 ML NEB.SOLN INH SCH (12:11)
[2024-09-13] MEDS: guaiFENesin 100 mg/5 ml LIQ unit dose cup PO PRN (12:46)
[2024-09-13] MEDS: guaiFENesin 100 mg/5 ml LIQ unit dose cup PO SCH (15:15)
[2024-09-14 06:11] LABS: ABS Eosinophils 0.2 10^3/uL (0.0-0.5); ABS Lymphocytes 1.1 10^3/uL (1.0-4.8); ABS Monocytes 0.6 10^3/uL (0.0-0.9); ABS Neutrophils 4.5 10^3/uL (1.5-7.6); Eosinophil % 3.3 %; Hematocrit 32.4 % (35-45); Hemoglobin 11.1 g/dL (11.5-14.3); Lymphocyte % 16.7 %; Mean Corpuscular Hemoglobin 28.7 pg (27-33); Mean Corpuscular Hgb Conc 34.4 g/dL (31-36); Mean Corpuscular Volume 83.6 fL (80-97); Mean Platelet Volume 6.8 fL (7.5-11.2); Nucleated Red Blood Cells % 0.1 %/100WBC (0.0-0.8); Platelet Count 309 10^3/uL (150-450); Red Blood Count 3.88 10^6/uL (3.63-4.92); Red Cell Distribution Width 15.4 % (12-17); White Blood Count 6.4 10^3/uL (3.8-11.8)
[2024-09-14 06:47] LABS: Calcium 8.9 mg/dL (8.6-10.3); Creatinine, Serum 0.82 mg/dL (0.51-0.95); Magnesium 1.7 mg/dL (1.9-2.7); eGFR CKD-EPI 70.1 (>60)
[2024-09-14 09:42] VITALS: BP 154/102
[2024-09-14] MEDS: Mometasone/Formoter 100/5 MDI INH SCH (13:30)
== END 2024-09-14 14:00 | DRG 193 ==
LOC: EDHOLD 18:31 → ED 18:31 → MEDTELE 09-10 08:13 → SUATTDRO 09-10 12:00
PROVIDERS: ADMIT Student in an Organized Health Care Education/Training Program; ATTEND Student in an Organized Health Care Education/Training Program